=== PATIENT | female | born 1940 | race Caucasian/White ===

== ENCOUNTER 2016-05-18 09:28 | Inpatient (IN) | payer MEDICARE, OTHER ==
--- NOTE | 2016-05-10 20:33 | HP ---
HISTORY AND PHYSICAL: DATE OF SURGERY: 05/18/16 DATE OF VISIT: 05/07/16 SURGEON: Krys Santacruz MD PROCEDURE: Left total knee arthroplasty. CHIEF COMPLAINT: Left knee pain. HISTORY OF PRESENT ILLNESS: Ms. Greenberg is a 75-year-old female with complaints of left knee pain secondary to advanced osteoarthritis. She has failed conservative management and has elected to proceed with left total knee arthroplasty which is scheduled for 05/18/16. PAST MEDICAL HISTORY: Asthma, GERD, Graves' disease, overactive bladder, and hyperlipidemia. PAST SURGICAL HISTORY: Tubal ligation, carpal tunnel release, cataract removal , fine needle aspiration of her thyroid. CURRENT MEDICATIONS: 1. Spiriva inhaler. 2. Furosemide. 3. Symbicort. 4. Omeprazole. 5. Nabumetone. 6. Atorvastatin calcium. 7. Gabapentin. 8. ProAir. 9. Calcium. 10. Vitamin D. 11. Acidophilus. 12. Biotin. 13. Fish oil. ALLERGY: To SULFA, CODEINE, and DIFLUCAN. FAMILY HISTORY: Pancreatic cancer, hypertension, heart disease, and diabetes. SOCIAL HISTORY: She is a 75-year-old female. She lives with her . She does not smoke, use drugs, or alcohol. REVIEW OF SYSTEMS: A complete 14-point review of systems was reviewed, is positive for chronic lower extremity edema. PHYSICAL EXAMINATION GENERAL: Well-developed, well-nourished, in no acute distress. VITAL SIGNS: She stands 5 feet 2 inches tall, weighs 185 pounds. Blood pressure is 129/80, her heart rate is 83. HEENT: Normocephalic, atraumatic. NECK: Supple. No palpable lymph nodes. Trachea is midline. PULMONARY: The lungs are clear to auscultation bilaterally. No wheezes, rhonchi, or rales. CARDIO: Regular rate and rhythm. Strong S1, S2. No murmurs, gallops, or rubs. No peripheral edema. ABDOMEN: Soft, nontender, nondistended. MUSCULOSKELETAL: Left lower extremity, the skin is intact. She has a moderate joint effusion. Tenderness over the medial lateral joint line. She walks with an antalgic-type gait favoring her left leg. 2+ dorsalis pedis pulses. Her lower extremity muscle group strengths are intact at 5/5. NEUROLOGICAL: She is alert, oriented x3. Cranial nerves II through XII are intact. ASSESSMENT AND PLAN: Ms. Greenberg is a 75-year-old female with complaints of left knee pain secondary to advanced osteoarthritis. She has failed conservative management and has elected to proceed with left total knee arthroplasty, which is scheduled for 05/18/[address] Santacruz discussed the risks and the benefits of the surgery at today's visit and all of her questions were answered. Coumadin, Colace, and Percocet were sent to her pharmacy for post- operative pain control and DVT prophylaxis. She will see Dr. Santacruz back 10 to 14 days after the surgery. NED EASON [id number]/[facility] #: [id number] MTDD
[~2016-05-18 09:28] MED LIST: Buffered Lidocaine 1% SYRIN* 3 ML/SYR SYRINGE INTRADERM ONE; Dexamethasone IV* 4 MG/ML 1 ML (4 MG) IV SLOW PU ONE; Famotidine IV* 10 MG/ML 2 ML (20 mg) IV ONE
[2016-05-18] MEDS ORDERED: Famotidine IV* 10 MG/ML 2 ML (20 mg) ONE (09:44)
[2016-05-18] MEDS ORDERED: ceFAZolin 2 GM PREMIX(*) 2 GM/50 ML BAG IVPB ONE (09:44)
[2016-05-18] MEDS ORDERED: Dexamethasone IV* 4 MG/ML 1 ML (4 MG) ONE (09:44)
[2016-05-18] MEDS ORDERED: Bupivacaine 0.5% W/EPI SDV* 30 ML VIAL ONE (11:21)
[2016-05-18] MEDS ORDERED: Morphine PF AMP (0.5MG/ML)* 5 MG/10 ML AMP ONE (11:33)
[2016-05-18] MEDS ORDERED: fentaNYL* 50 MCG/ML 2 ML VIAL (100 MCG VIAL) ONE (11:33)
[2016-05-18] MEDS ORDERED: Bupivacaine 0.5% SDV PF* 30 ML VIAL ONE (11:33)
[2016-05-18] MEDS ORDERED: Midazolam* 1 MG/ML 5 ML VIAL (5 MG) ONE (11:33)
[2016-05-18] MEDS ORDERED: Scopolamine 1.5 mg* PATCH TRANSDERM PRN (11:35)
[2016-05-18] MEDS ORDERED: oxyCODONE TAB* 5 MG TAB PO PRN ×2 (11:35→11:36)
[2016-05-18] MEDS ORDERED: Acetaminophen IV 1GM/100ML * 100 ML IVPB ONE (11:35)
[2016-05-18] MEDS ORDERED: PROCHLORPERAZINE INJ 5 MG/ML 2 ML VIAL IV PRN ×2 (11:35→13:16)
[2016-05-18] MEDS ORDERED: fentaNYL* 50 MCG/ML 2 ML VIAL (100 MCG VIAL) IV PRN (11:35)
[2016-05-18] MEDS ORDERED: EPHEDrine (Pressors)* 50 MG/ML VIAL IV PUSH PRN (11:36)
[2016-05-18] MEDS ORDERED: Lactated Ringers 500 ml BAG* 500 ML IV PRN (11:36)
[2016-05-18] MEDS ORDERED: Propofol* 10 MG/ML 20 ML BTL IV PUSH ONE ×2 (11:45→13:32)
[2016-05-18] MEDS ORDERED: Lidocaine 2% PF* 5 ML VIAL ONE (11:45)
[2016-05-18] MEDS ORDERED: EPHEDrine (Pressors)* 50 MG/ML VIAL ONE (13:12)
[2016-05-18] MEDS ORDERED: Nalbuphine* 20 MG/ML 1 ML VIAL IV PRN (13:16)
[2016-05-18] MEDS ORDERED: Ondansetron INJ* 2 MG/ML VIAL IV PRN (13:16)
[2016-05-18] MEDS ORDERED: Naloxone* 0.4 MG/ML 1 ML VIAL IV PRN (13:16)
[2016-05-18] MEDS ORDERED: Midazolam* 1 MG/ML 2 ML VIAL (2 MG) ONE (13:34)
[2016-05-18] MEDS ORDERED: Ondansetron INJ* 2 MG/ML VIAL ONE (13:56)
[2016-05-18] MEDS ORDERED: Ropivacaine 0.2% EPIDURAL* 200 MG/100 ML BAG EPIDURAL ONE (14:22)
[2016-05-18] MEDS ORDERED: Acetaminophen IV 1GM/100ML * 100 ML ONE (14:35)
[2016-05-18] MEDS ORDERED: Ropivacaine 0.2% EPIDURAL* 200 MG/100 ML BAG EPIDURAL SCH (15:00)
[2016-05-18] MEDS ORDERED: Bisacodyl SUPP* 10 MG SUPP PR PRN (15:24)
[2016-05-18] MEDS ORDERED: Magnesium Hydroxide LIQ* 30 ML UDC PO PRN (15:24)
[2016-05-18] MEDS ORDERED: Polyethylene Glycol 3350* 17 GM PACKET PO PRN (15:24)
[2016-05-18] MEDS ORDERED: LACTULOSE* 30 ML UDC PO PRN (15:24)
--- NOTE | 2016-05-18 16:18 | RAD ---
Indication: Left total knee arthroplasty. 2 views of left knee demonstrates left knee replacement in satisfactory position. Drainage catheter is in place. IMPRESSION: LEFT KNEE REPLACEMENT IN SATISFACTORY POSITION.
[2016-05-18] MEDS ORDERED: Spiriva Inhaler DEVICE* 1 EACH DEVICE INH ONE (18:00)
[2016-05-18] MEDS: Warfarin TAB(*) 6 MG PO ONE (18:25)
[2016-05-18] MEDS: Atorvastatin* 10 MG TAB PO SCH (18:26)
[2016-05-18] MEDS ORDERED: Albuterol 2.5 MG/3 ML NEB.SOL* (0.083%) INH PRN (19:42)
[2016-05-18] MEDS: Docusate CAP* 100 MG PO SCH (20:50)
[2016-05-18] MEDS: Gabapentin CAP(*) 100 MG PO SCH (20:50)
[2016-05-18] MEDS: ceFAZolin 1 GM in Dextrose (*) 1 GM/50 ML BAG IVPB SCH (20:51)
[2016-05-18] MEDS: PTO: Budesonide/Formote 80/4.5(NF) MDI INH SCH (22:23)
[2016-05-18] MEDS ORDERED: Acetaminophen TAB* 325 MG PO SCH (23:30)
[2016-05-19] MEDS ORDERED: Lactated Ringers 500 ml BAG* 500 ML IV ONE (01:00)
[2016-05-19] MEDS ORDERED: Ondansetron INJ* 2 MG/ML VIAL IV PRN (04:30)
[2016-05-19] MEDS ORDERED: Ondansetron TAB* 4 MG PO PRN (04:30)
[2016-05-19] MEDS ORDERED: oxyCODONE TAB* 5 MG TAB PO PRN (04:30)
[2016-05-19] MEDS ORDERED: diPHENhydraMINE IV* 50 MG/ML 1 ml VIAL (BENADRYL) IV PRN (04:30)
[2016-05-19] MEDS: ceFAZolin 1 GM in Dextrose (*) 1 GM/50 ML BAG IVPB SCH ×2 (05:02→12:18)
[2016-05-19] MEDS ORDERED: Morphine INJ* 2 MG/ML 1 ML SYRINGE IV PRN (06:00)
[2016-05-19] MEDS ORDERED: NS 0.9% 500 ML BAG* 500 ML IV ONE ×2 (07:00→15:00)
[2016-05-19 07:27] LABS: Hematocrit 26 % (35-47); Hemoglobin 8.8 g/dl (12.0-16.0); Mean Corpuscular HGB Conc 34 g/dl (31-36); Mean Corpuscular Hemoglobin 29 pg (27-31); Mean Corpuscular Volume 85 fL (80-97); Mean Platelet Volume 9 um3 (7.4-10.4); Red Blood Count 3.06 10^6/ul (4.0-5.4); Red Cell Distribution Width 15 % (10.5-15)
[2016-05-19 07:36] LABS: Calcium 8.3 mg/dL (8.6-10.3); EGFR African American 136.5 (>60); EGFR Non-African American 106.1 (>60); Potassium 3.8 mmol/L (3.5-5.0)
[2016-05-19] MEDS: Omeprazole CAP* 20 MG PO SCH (07:56)
[2016-05-19] MEDS ORDERED: Furosemide TAB* 20 MG PO SCH (09:00)
[2016-05-19] MEDS ORDERED: Influenza VAC *QUAD* 2016-17* 0.5 ML SYRINGE IM ONE (09:00)
[2016-05-19] MEDS ORDERED: Pneumococcal Vac Polyvalent* 0.5 ML VIAL IM ONE (09:00)
[2016-05-19] MEDS: Tiotropium CAP.INH* CAP.INH/18 MCG INH SCH (09:04)
[2016-05-19] MEDS: PTO: Budesonide/Formote 80/4.5(NF) MDI INH SCH ×2 (09:47→20:43)
[2016-05-19] MEDS: Docusate CAP* 100 MG PO SCH ×2 (09:47→20:41)
--- NOTE | 2016-05-19 10:02 | PN ---
Progress Note - Progress Note SOAP: Subjective: []Patient seen OOB in chair, doing well overall. Pain well managed. Denies SOB , chest pain or dizziness. Objective: [] Vital Signs Temp 98.4 F 05/19/16 07:31 Pulse 58 05/19/16 07:31 Resp 18 05/19/16 08:00 BP 106/58 05/19/16 07:31 Pulse Ox 99 05/19/16 08:00 Intake & Output 05/18/16 05/19/16 05/19/16 18:59 06:59 18:59 Intake Total 3170 2500 Output Total 1150 650 Balance 2019 185 Weight 185 lb Intake: IV Fluids 3050 1650 LR 3000 1650 NS 50ML, Cefazolin 2G 50 IVPB 50 ABX - CEFAZOLIN 50 Oral 120 800 Output: Collazo 1150 650 Laboratory Results - last 24 hr 05/19/16 05/19/16 05/19/16 07:00 07:00 07:00 WBC 7.0 RBC 3.06 L Hgb 8.8 L Hct 26 L MCV 85 MCH 29 MCHC 34 RDW 15 Plt Count 137 L MPV 9 Neut % (Auto) 86.1 H Lymph % (Auto) 8.1 L [place] % (Auto) 5.6 Eos % (Auto) 0 Baso % (Auto) 0.2 Absolute Neuts (auto) 6.0 Absolute Lymphs (auto) 0.6 L Absolute Monos (auto) 0.4 Absolute Eos (auto) 0 Absolute Basos (auto) 0 Absolute Nucleated RBC 0 Nucleated RBC % 0.1 INR (Anticoag Therapy) 1.00 Sodium 131 L Potassium 3.8 Chloride 101 Carbon Dioxide 26 Anion Gap 4 BUN 14 Creatinine 0.56 Est GFR ( Amer) 136.5 Est GFR (Non-Af Amer) 106.1 BUN/Creatinine Ratio 25.0 H Glucose 114 H Calcium 8.3 L Left knee dressing is dry and intact Hemovac drain pulled, tip intact 375cc in canister calf non tender and soft +DF/PF left ankle neuro intact Assessment: []s/p Left total knee arthroplasty POD #1 Plan: []PT OT WBAT LLE Coumadin with Lovenox bridge -8mg today Monitor H+H Home tuesday
--- NOTE | 2016-05-19 11:30 | OP ---
OPERATIVE NOTE: DATE OF OPERATION: 05/18/16 DATE OF : 44 SURGEON: Krys Santacruz MD SAFETY SUPERVISOR: NED Sandoval ANESTHESIOLOGIST: Dr. Almonte. ANESTHESIA: Spinal with adductor nerve block. PRE-OP DIAGNOSIS: Left knee severe degenerative osteoarthritis. POST-OP DIAGNOSIS: Left knee severe degenerative osteoarthritis. OPERATIVE PROCEDURE: Left total knee arthroplasty. TOURNIQUET TIME: 58 minutes. COMPLICATIONS: None. SPECIMEN: Bone and cartilage from the left knee joint sent to pathology. ESTIMATED BLOOD LOSS: 300 cc. HARDWARE USED: This is cemented [employer] total knee hardware with two packages of Simplex b one cement. For the femur, a size 4 left narrow femoral component; for the tibia, a size 3 left tib ial base plate; for the insert, an 11- mm, size 3-4 posterior stabilized articular insert; and for t he patella, a 35-mm 3- peg all poly patella. BRIEF HISTORY/INDICATIONS: Ms. Greenberg is a 75-year-old female with years of increasingly severe bilat eral knee pain, left greater than right. Radiographs showed severe end-stage varus arthritis of the left knee with medial [id number] contact. The patient has failed conservative treatment with ant i-inflammatories, pain medication, intra-articular injections and physical therapy. She elected to have left total knee arthroplasty. Informed consent was obtained from the patient. She understood t he risks of surgery, included but were not limited to, bleeding, infection, damage to nearby structu res, continued pain, need for further surgery, intraoperative fracture, nerve palsy, hardware failur e or loosening, stroke, heart attack, blood clot, and . She wished to proceed. INTRAOPERATIVE FINDINGS: Intraoperatively, the patient was noted to have severe end-stage arthritis of the knee joint with extensive osteophyte formation. This was tricompartmental. Medial and shcroeder llofemoral compartments were most affected. DESCRIPTION OF PROCEDURE: Ms. Greenberg was identified in the pre-anesthesia unit. Her left lower extre mity was marked as the correct operative side. Informed consent was signed and placed in the chart. The patient was taken to the operating room and placed under spinal anesthesia with an adductor ne rve block. Collazo catheter was placed. The tourniquet was placed on the left thigh. Left lower ext remity was prepped and draped in the usual sterile fashion. Preop time-out was made to correctly id entify the patient's side and site. Appropriate perioperative antibiotics were given within 1 hour of incision. Tourniquet was inflated until tourniquet time for this procedure was 58 minutes. A 12-cm midline in cision was made with a 10 blade. This was carried down to the extensor mechanism. A new 10 blade w as used to make a standard medial parapatellar arthrotomy and the patella was subluxed laterally. E lectrocautery was used to subperiosteally elevate soft tissue off the superomedial tibia to the mid sagittal plane. The knee was flexed up. ACL and anterior horn of the lateral meniscus was sharply released. A drill was used to enter the distal femur. Intramedullary distal femoral cutting guide was pinned into position on the distal femur. Oscillating saw was used to make the appropriate dista l femoral cut. External rotation guide was pinned on the distal femur and the distal femur was sized to a size 4. A size 4 multi-cutting jig was pinned on the distal femur. Oscillating saw was used to make the appr opriate 4 chamfer cuts. Bony fragments were carefully removed. PCL was completely released and the tibia was subluxed anteriorly. Extramedullary tibial cutting guide was pinned on the proximal tibia. Oscillating saw was used to m hui the appropriate proximal tibial cut. Tibial bone was carefully removed. The knee was brought out into full extension. The spacer block had good fit. There was good medial and lateral ligamentous balancing. Flexion and extension gaps were well balanced. The knee was flexed up. Lamina electronic heat seal operator was placed both medially and laterally. Remaining meniscus was carefully removed using electrocautery. Posterior condyles were checked for any remaining osteo phytes. Curved osteotome was used to remove any remaining osteophytes. Tibial tray and drop macario we re placed to once again confirmed satisfactory proximal tibial cut. This was confirmed. A size 4 narrow left femoral trial was chosen and impacted on to the distal femur. This had good fit . The box for the posterior stabilized implant was prepared using a reamer and box cut osteotome. A size 3 tibial tray with a 9 mm insert trial was placed. The knee was taken through range of motio n and noted to have full extension to 130 degrees of flexion. Good patellofemoral tracking. The patella was everted. 9 mm of patellar bone and cartilage were carefully removed. The patella w as sized to a size 35. Three peg holes were drilled through the size 35 guide. Trial 35 patella wa s placed and the knee was taken through a range of motion. There was satisfactory patellofemoral tr acking. All trials were carefully removed. The tibia was subluxed anteriorly and sized to a size 3. Proxim al tibia was prepared using a size 3 keel punch. All bony cut surfaces were copiously irrigated wit h sterile saline and dried. The final implants were cemented into place using Simplex bone cement. First the tibia, followed by the femur, and last the patella were cemented into place. An 11-mm in sert trial was placed while the knee was brought out into full extension. Tourniquet was turned down at 58 minutes. Once the cement was fully cured, the insert trial was removed. Capsule was checked for any bleeding and any excess cement was carefully removed. Final insert chosen was an 11-mm pos terior stabilized articular insert size 3-4. This was locked into position on the tibial tray. Sta bility of the insert was checked and rechecked, and noted to be stable. Final range of motion was full extension to 130 degrees of flexion with good patellofemoral tracking . The knee was copiously irrigated with sterile saline. The extensor mechanism was reapproximated u sing interrupted #1 Vicryls over a medium Hemovac drain. The rest of the incision was closed in a l ayered fashion using 0 and 2-0 Vicryls. Skin was closed using running 3-0 nylon suture. Sterile Xe roform, 4 x 4's, and Webril were used to cover the incision. Ned wrap and cold pack were placed ove r this. The patient's anesthesia was reversed without difficulty. She was taken to the PACU in stab le condition. Intended weightbearing will be weightbearing as tolerated. Intended DVT prophylaxis will be Coumadin with a Lovenox bridge. [id number]/[facility] #: [id number]
--- NOTE | 2016-05-19 12:12 | CONS ---
CONSULTATION REPORT: DATE OF CONSULT: 05/18/16 PRIMARY CARE PROVIDER: Dr. Perez. REQUESTING PHYSICIAN FOR CONSULTATION: Dr. Krys Santacruz. ATTENDING PHYSICIAN: Dr. Carranza (reported being dictated by Gabriel Peralta NP). REASON FOR MEDICAL EVALUATION: Medical management of comorbid medical problems. HISTORY OF PRESENT ILLNESS: I refer you to Dr. Santacruz's H and P for further details. In short, Ms. Greenberg is a 75-year-old female patient that came into the hospital today for an elective total knee replacement. She has been seeing Dr. Santacruz in the outpatient setting for this and has been failing conservative therapy and it was felt that a total knee would be needed. She was evaluated in the postoperative setting. She said she is feeling well. She denies any chest pain. Denies any shortness of breath. She denies having any nausea or vomiting. She states that she is not having any chest pain or shortness of breath. She has no pain in her knee. She states she has no numbness or tingling to her lower extremities and says that she is feeling well. She carries a history of asthma along with edema, hyperlipidemia, Graves' disease and GERD and arthritis, and because of this, the hospitalist service was asked to evaluate in consult. PAST MEDICAL HISTORY: Significant for: 1. Asthma. 2. GERD. 3. Graves. 4. Osteoarthritis. 5. Hyperlipidemia. 6. Edema. SURGICAL HISTORY: 1. She has had a tubal ligation. 2. Carpal tunnel. 3. Cataracts. 4. Left total knee arthroplasty. HOME MEDICATIONS: Include: 1. Spiriva 2 puffs inhale daily. 2. Symbicort 2 puffs inhale b.i.d. 3. Probiotic one capsule p.o. daily. 4. Prilosec 40 mg daily. 5. [place]-3 fatty acids 1400 mg p.o. daily. 6. Relafen 500 mg p.o. b.i.d. 7. Gabapentin 200 mg at bedtime. 8. Lasix 40 mg a day. 9. D3 5000 units daily. 10. Calcium 2 tablets p.o. daily. 11. Biotin 10,000 mcg p.o. daily. 12. Lipitor 5 mg daily. 13. Albuterol 2 puffs inhale every 4 hours as needed. 14. Fish oil. ALLERGIES TO MEDICATIONS: Include SULFA, CODEINE, and DIFLUCAN. FAMILY HISTORY: Father had a history of pancreatic cancer. Mother's history was reviewed and noncontributory. SOCIAL HISTORY: The patient does not smoke. She does not drink alcohol. Surrogate decision maker is her . REVIEW OF SYSTEMS: There is no documented fever. She denied having any significant weight change. There is no double vision. There is no ear discharge. Denies having any rhinorrhea. There is no sore throat. No thyroid enlargement. She denied having any chest pain. There is no orthopnea. There is no nocturnal dyspnea. There is no abdominal pain. There is no nausea, no vomiting, no dysuria, no frequency. No seizure. No loss of consciousness. No pruritus. No skin ulcerations. Review of 14 systems completed, all others negative. PHYSICAL EXAMINATION: Vital Signs: Blood pressure 101/60, pulse 59, respirations 18, O2 sat 93%, temperature 96.5. General: At this time, Ms. Greenberg is a 75-year- old female patient. She is sitting in the postoperative bed. She does not appear to be in any acute distress. HEENT: Head is atraumatic and normocephalic. Eyes: EOMs are intact. Sclerae anicteric and not pale. Neck: Supple. Throat: Oral mucosa appears to be moist. No oropharyngeal erythema. Heart: Heart sounds S1, S2. Regular rate and rhythm. No murmurs, rubs or gallops. Lungs: Clear to auscultation bilaterally. No wheezes, rales, or rhonchi. Abdomen: Soft, flat, nontender. Bowel sounds present. Extremities: Pulses are 2+ throughout. Distal CSM checks are intact. She is moving the upper extremities with 5/5 strength. Neurologically, she is awake, alert, and oriented x3. No gross focal deficits. Skin is intact. She has an incision to the left knee, which is covered with an Ned dressing, clean, dry, and intact. DIAGNOSTIC STUDIES/LAB DATA: The labs preoperatively reveal a WBC of 6.5, RBC of 4.51, hemoglobin 13.0, hematocrit 38, platelet count of 196. INR was 0.88. PTT of 31.6. The sodium was 135, potassium 3.7, chloride 100, bicarb 29, BUN 23 , creatinine 0.81, glucose 92. The urine was obtained, it was negative. She had a preoperative EKG which revealed a normal sinus rhythm at a rate of 60. No ST elevation or T-wave inversions were noted. Old medical records were reviewed. PLAN: Ms. Greenberg is a 75-year-old female patient coming into the orthopedic service today for an elective total knee replacement. We were asked to evaluate in consult. Recommendations at this point are: 1. Status post left total knee replacement. We will defer the management to Dr. Santacruz and her team. 2. Asthma. Continue breathing treatments as prescribed. I did order some p.r.n. albuterol for the patient should she need it. 3. Graves' disorder. Continue current medical regimen. Follow up with her primary. 4. Osteoarthritis. She can follow up with her primary. I would recommend, while she is on Coumadin, not continuing the Relafen. 5. Hyperlipidemia. Continue the statin therapy. 6. GERD. Continue PPI therapy. 7. Edema. She is on Lasix daily for this. At this point, I would hold this and will diurese her as needed. 8. DVT prophylaxis. I will defer to the primary team. 9. Fluid, electrolytes and nutrition. She can have a regular diet. 10. Code status is full code. TIME SPENT: On the consult was 60 minutes, greater than half the time was spent [id number] with the patient obtaining my history and physical, other half the time spent going over the plan of care with the patient and implementing the plan of care. I did discuss the plan of care with my attending, Dr. Carranza; he is in agreement. GABRIEL PERALTA NP CC: Dr. Perez; Dr. Santacruz* [id number]/[facility] #: [id number] TOBIAS
[2016-05-19] MEDS: Enoxaparin(*) 30 MG/0.3 ML SYR SUBCUT SCH (12:16)
[2016-05-19] MEDS: oxyCODONE/Acetamin 5/325 MG* TAB PO PRN ×3 (12:19→20:42)
[2016-05-19] MEDS ORDERED: Warfarin TAB(*) 4 MG PO ONE (17:00)
[2016-05-19] MEDS: Atorvastatin* 10 MG TAB PO SCH (17:16)
--- NOTE | 2016-05-19 18:07 | PN ---
Subjective Date of Service: 05/19/16 Interval History: Patient seen and examined at bedside. She denies fever/chills, CP, SOB, abd pain , n/v. She reports worse pain in her knee today but reports relief with pain medication. Denies fever/chills, CP, SOB, abd pain, n/v. No dysuria. Family History: Unchanged from Admission Social History: Unchanged from Admission Past Medical History: Unchanged from Admission Objective Active Medications: Acetaminophen (Tylenol Tab*) 650 mg PO Q4H PRN PRN Reason: PAIN OR TEMPERATURE Albuterol (Ventolin 2.5 Mg/3 Ml Neb.Julia*) 2.5 mg INH Q2H PRN PRN Reason: SOB/WHEEZING Atorvastatin Calcium (Lipitor*) 5 mg PO QPM [facility] Last Admin: 05/19/16 17:16 Dose: 5 mg Bisacodyl (Dulcolax Supp*) 10 mg MA DAILY PRN PRN Reason: constipation Budesonide/Formoterol Fumarate (Symbicort 80/4.5 (Nf)) 2 aer INH BID [facility] Last Admin: 05/19/16 09:47 Dose: 2 inhaler Diphenhydramine HCl (Benadryl Iv*) 12.5 mg IV Q6H PRN PRN Reason: PRURITIS Docusate Sodium (Colace Cap*) 100 mg PO BID [facility] Last Admin: 05/19/16 09:47 Dose: 100 mg Enoxaparin Sodium (Lovenox(*)) 30 mg SUBCUT Q24H [facility] Last Admin: 05/19/16 12:16 Dose: 30 mg Gabapentin (Neurontin Cap(*)) 200 mg PO BEDTIME [facility] Last Admin: 05/18/16 20:50 Dose: 200 mg Lactated Ringer's (Lactated Ringers 1000 Ml Bag*) 1,000 mls @ 100 mls/hr IV PER RATE [facility] Last Admin: 05/19/16 07:37 Dose: 100 mls/hr Lactulose (Lactulose*) 30 ml PO Q6H PRN PRN Reason: constipation Magnesium Hydroxide (Milk Of Magnesia Liq*) 30 ml PO Q6H PRN PRN Reason: constipation Morphine Sulfate (Morphine Inj (Syringe)*) 2 mg IV Q2H PRN PRN Reason: PAIN Omeprazole (Prilosec Cap*) 40 mg PO 0730 [facility] Last Admin: 05/19/16 07:56 Dose: 40 mg Ondansetron HCl (Zofran Inj*) 4 mg IV Q6H PRN PRN Reason: nausea Ondansetron HCl (Zofran Tab*) 4 mg PO Q6H PRN PRN Reason: NAUSEA Oxycodone HCl (Roxycodone Tab*) 10 mg PO Q4H PRN PRN Reason: SEVERE PAIN Last Admin: 05/19/16 05:35 Dose: 10 mg Oxycodone/Acetaminophen (Percocet 5/325 Tab*) 1 tab PO Q3H PRN PRN Reason: PAIN - MODERATE Oxycodone/Acetaminophen (Percocet 5/325 Tab*) 2 tab PO Q3H PRN PRN Reason: PAIN - MODERATE Last Admin: 05/19/16 17:17 Dose: 2 tab Pharmacy Profile Note (Scopolomine Patch Remove*) 1 note PATCH OFF Q72H ONE Stop: 05/21/16 11:37 Pharmacy Profile Note (Coumadin Daily Reminder*) 1 note FOLLOW UP 1700 [facility] Last Admin: 05/19/16 17:18 Dose: 1 note Polyethylene Glycol/Electrolytes (Miralax*) 17 gm PO DAILY PRN PRN Reason: Constipation Tiotropium [place] (Spiriva Cap.Inh*) 1 cap INH QAM [facility] Last Admin: 05/19/16 09:04 Dose: 1 cap Vital Signs 05/18/16 05/18/16 05/18/16 18:24 18:25 19:23 Temperature 96.6 F 96.6 F 96.5 F Pulse Rate 65 65 59 Respiratory 17 17 16 Rate Blood Pressure 109/66 109/66 101/60 (mmHg) O2 Sat by Pulse 94 94 93 Oximetry 05/18/16 05/18/16 05/18/16 20:00 20:50 21:18 Temperature Pulse Rate Respiratory 17 17 17 Rate Blood Pressure (mmHg) O2 Sat by Pulse Oximetry 05/18/16 05/18/16 05/18/16 21:23 21:40 22:50 Temperature 96.7 F Pulse Rate 63 Respiratory 17 16 16 Rate Blood Pressure 102/62 (mmHg) O2 Sat by Pulse 96 Oximetry 05/18/16 05/18/16 05/18/16 23:37 23:38 23:49 Temperature 97.0 F Pulse Rate 63 67 Respiratory 16 16 Rate Blood Pressure 94/46 (mmHg) O2 Sat by Pulse 96 96 96 Oximetry 05/19/16 05/19/16 05/19/16 01:05 02:06 03:29 Temperature Pulse Rate 58 63 62 Respiratory 16 16 16 Rate Blood Pressure 98/58 92/53 97/57 (mmHg) O2 Sat by Pulse 99 98 98 Oximetry 05/19/16 05/19/16 05/19/16 03:34 05:35 07:31 Temperature 97.2 F 98.4 F Pulse Rate 58 Respiratory 16 16 Rate Blood Pressure 106/58 (mmHg) O2 Sat by Pulse 99 Oximetry 05/19/16 05/19/16 05/19/16 07:35 08:00 11:29 Temperature 97.9 F Pulse Rate 71 Respiratory 18 18 16 Rate Blood Pressure 109/33 (mmHg) O2 Sat by Pulse 99 100 Oximetry 05/19/16 05/19/16 05/19/16 12:19 14:19 15:50 Temperature 98.0 F Pulse Rate 78 Respiratory 18 18 16 Rate Blood Pressure 113/52 (mmHg) O2 Sat by Pulse 98 Oximetry 05/19/16 05/19/16 16:00 17:17 Temperature Pulse Rate Respiratory 18 Rate Blood Pressure (mmHg) O2 Sat by Pulse 98 Oximetry Oxygen Devices in Use Now: None Appearance: Female patient, OOB to chair, in NAD Eyes: PERRLA Ears/Nose/Mouth/Throat: Clear Oropharnyx, Mucous Membranes Moist Neck: NL Appearance and Movements; NL JVP Respiratory: Symmetrical Chest Expansion and Respiratory Effort, Clear to Auscultation Cardiovascular: NL Sounds; No Murmurs; No JVD, RRR Abdominal: NL Sounds; No Tenderness; No Distention Extremities: - - trace LE edema, left knee dressing c/d/i, distal pulses 2+ Skin: No Rash or Ulcers Neurological: Alert and Oriented x 3 Lines/Tubes/Other Access: Clean, Dry and Intact Peripheral IV Nutrition: Taking PO's Result Diagrams: 05/19/16 07:00 05/19/16 07:00 Assess/Plan/Problems-Billing Assessment: Ms. Greenberg is a 75 yo female with a PMH of asthma, GERD, OA, HLD, Grave's disease , and overactive bladder who was admitted 05/18/16 for an elective left total knee replacement. - Patient Problems (1) Status post total left knee replacement Code(s): Z96.652 - PRESENCE OF LEFT ARTIFICIAL KNEE JOINT Comment: POD #1, management per ortho. HH stable, VSS. PT/OT Continue pain management. (2) Bilateral lower extremity edema Code(s): R60.0 - LOCALIZED EDEMA Comment: Chronic. Hold furosemide post-operatively, as BP is soft. (3) GERD (gastroesophageal reflux disease) Code(s): K21.9 - GASTRO-ESOPHAGEAL REFLUX DISEASE WITHOUT ESOPHAGITIS Comment : Continue omeprazole. (4) Asthma Code(s): J45.909 - UNSPECIFIED ASTHMA, UNCOMPLICATED Comment: Stable. Continue Symbicort. (5) Osteoarthritis Code(s): M19.90 - UNSPECIFIED OSTEOARTHRITIS, UNSPECIFIED SITE Comment: Continue pain managment. Relafen on hold in post-operative period while on warfarin. (6) HLD (hyperlipidemia) Code(s): E78.5 - HYPERLIPIDEMIA, UNSPECIFIED Comment: Continue atorvastatin. (7) Graves disease Code(s): E05.00 - THYROTOXICOSIS W DIFFUSE GOITER W/O THYROTOXIC CRISIS Comment: Not on PTU or methimiazole. Continue outpatient f/u with PCP. (8) DVT prophylaxis Code(s): MZW6212 - Comment: Per ortho - warfarin and enoxaparin Status and Disposition: Inpatient admission. Disposition per orthopedics.
[2016-05-19] MEDS: Acetaminophen TAB* 325 MG PO PRN (20:41)
[2016-05-19] MEDS: Gabapentin CAP(*) 100 MG PO SCH (20:42)
[2016-05-20] MEDS: Omeprazole CAP* 20 MG PO SCH (06:57)
[2016-05-20 07:26] LABS: Hematocrit 27 % (35-47); Hemoglobin 9.1 g/dl (12.0-16.0)
--- NOTE | 2016-05-20 07:46 | PN ---
Progress Note - Progress Note SOAP: Subjective: Pt. is doing well, pain controlled, urinated this AM. No BM or flatulence. Objective: LLE - dressing changed, inc c/d/i. distally no edema and nvi. Vital Signs: Temp Pulse Resp BP Pulse Ox 98.0 F 91 16 143/78 97 05/20/16 07:09 05/20/16 07:09 05/20/16 07:09 05/20/16 07:09 05/20/16 07:09 Laboratory Results - last 24 hr 05/20/16 05/20/16 07:18 07:18 Hgb 9.1 L Hct 27 L INR (Anticoag Therapy) 1.24 H Assessment: 75 yo F pod 2 s/p LTKA Plan: wbat lle pt/ot 6 mg coumadin tonight cont lovenox d/c to home with vns tomorrow am
[2016-05-20] MEDS: Tiotropium CAP.INH* CAP.INH/18 MCG INH SCH (08:41)
[2016-05-20] MEDS: PTO: Budesonide/Formote 80/4.5(NF) MDI INH SCH ×2 (08:41→20:58)
[2016-05-20] MEDS: oxyCODONE/Acetamin 5/325 MG* TAB PO PRN ×2 (08:42→12:31)
[2016-05-20] MEDS: Docusate CAP* 100 MG PO SCH ×2 (08:42→20:59)
[2016-05-20] MEDS: Enoxaparin(*) 30 MG/0.3 ML SYR SUBCUT SCH (12:01)
[2016-05-20] MEDS ORDERED: Warfarin TAB(*) 6 MG PO SCH (17:00)
[2016-05-20] MEDS: Atorvastatin* 10 MG TAB PO SCH (17:27)
--- NOTE | 2016-05-20 18:04 | PN ---
Subjective Date of Service: 05/20/16 Interval History: Patient seen and examined at bedside. Pt denies fever, chills, shortness of breath, chest discomfort, N/V/D. Reports pain is tolerable with pain medication. Family History: Unchanged from Admission Social History: Unchanged from Admission Past Medical History: Unchanged from Admission Objective Active Medications: Acetaminophen (Tylenol Tab*) 650 mg PO Q4H PRN Reason: PAIN OR TEMPERATURE Albuterol (Ventolin 2.5 Mg/3 Ml Neb.Julia*) 2.5 mg INH Q2H PRN Reason: SOB/ WHEEZING Atorvastatin Calcium (Lipitor*) 5 mg PO QPM VASU Bisacodyl (Dulcolax Supp*) 10 mg [place] DAILY PRN Reason: constipation Budesonide/Formoterol Fumarate (Symbicort 80/4.5 (Nf)) 2 aer INH BID VASU Diphenhydramine HCl (Benadryl Iv*) 12.5 mg IV Q6H PRN Reason: PRURITIS Docusate Sodium (Colace Cap*) 100 mg PO BID VASU Enoxaparin Sodium (Lovenox(*)) 30 mg SUBCUT Q24H VASU Gabapentin (Neurontin Cap(*)) 200 mg PO BEDTIME VASU Lactated Ringer's (Lactated Ringers 1000 Ml Bag*) 1,000 mls @ 100 mls/hr IV PER RATE VASU Lactulose (Lactulose*) 30 ml PO Q6H PRN Reason: constipation Magnesium Hydroxide (Milk Of Magnesia Liq*) 30 ml PO Q6H PRN Reason: constipation Morphine Sulfate (Morphine Inj (Syringe)*) 2 mg IV Q2H PRN Reason: PAIN Omeprazole (Prilosec Cap*) 40 mg PO 0730 VASU Ondansetron HCl (Zofran Inj*) 4 mg IV Q6H PRN Reason: nausea Ondansetron HCl (Zofran Tab*) 4 mg PO Q6H PRN Reason: NAUSEA Oxycodone HCl (Roxycodone Tab*) 10 mg PO Q4H PRN Reason: SEVERE PAIN Oxycodone/Acetaminophen (Percocet 5/325 Tab*) 1 tab PO Q3H PRN Reason: PAIN - MODERATE Oxycodone/Acetaminophen (Percocet 5/325 Tab*) 2 tab PO Q3H PRN Reason: PAIN - MODERATE Pharmacy Profile Note (Scopolomine Patch Remove*) 1 note PATCH OFF Q72H ONE Stop: 05/21/16 11:37 Pharmacy Profile Note (Coumadin Daily Reminder*) 1 note FOLLOW UP 1700 VASU Polyethylene Glycol/Electrolytes (Miralax*) 17 gm PO DAILY PRN Reason: Constipation Tiotropium [place] (Spiriva Cap.Inh*) 1 cap INH QAM COUNTS INCLUDE 234 BEDS AT THE [facility] Vital Signs 05/19/16 05/19/16 05/19/16 19:13 19:17 20:00 Temperature 98.5 F Pulse Rate 78 Respiratory 13 16 13 Rate Blood Pressure 132/60 (mmHg) O2 Sat by Pulse 96 Oximetry 05/19/16 05/19/16 05/19/16 20:42 22:42 23:38 Temperature 98.1 F Pulse Rate 76 Respiratory 16 18 16 Rate Blood Pressure 124/81 (mmHg) O2 Sat by Pulse 94 Oximetry 05/20/16 05/20/16 05/20/16 01:36 03:25 07:09 Temperature 98.0 F 98.2 F 98.0 F Pulse Rate 73 75 91 Respiratory 17 15 16 Rate Blood Pressure 130/67 123/58 143/78 (mmHg) O2 Sat by Pulse 94 94 97 Oximetry 05/20/16 05/20/16 05/20/16 08:00 08:42 10:42 Temperature Pulse Rate Respiratory 18 16 16 Rate Blood Pressure (mmHg) O2 Sat by Pulse 97 Oximetry 05/20/16 05/20/16 05/20/16 11:50 12:31 14:31 Temperature 97.9 F Pulse Rate 87 Respiratory 16 20 16 Rate Blood Pressure 140/70 (mmHg) O2 Sat by Pulse 93 Oximetry 05/20/16 05/20/16 15:55 16:00 Temperature 98.2 F Pulse Rate 89 Respiratory 16 Rate Blood Pressure 150/77 (mmHg) O2 Sat by Pulse 96 96 Oximetry Oxygen Devices in Use Now: None Appearance: NAD, laying in bed Eyes: No Scleral Icterus, PERRLA Ears/Nose/Mouth/Throat: NL Teeth, Lips, Gums, Mucous Membranes Moist Neck: NL Appearance and Movements; NL JVP, Trachea Midline Respiratory: Symmetrical Chest Expansion and Respiratory Effort, Clear to Auscultation Cardiovascular: NL Sounds; No Murmurs; No JVD, RRR Abdominal: NL Sounds; No Tenderness; No Distention Extremities: - - Trace to mild left LE edema Skin: - - Dressing to left knee clean, dry and intact Neurological: Alert and Oriented x 3, NL Muscle Strength and Tone Lines/Tubes/Other Access: Clean, Dry and Intact Peripheral IV - site benign Nutrition: Taking PO's Result Diagrams: 05/20/16 07:18 05/19/16 07:00 Assess/Plan/Problems-Billing Assessment: Ms. Greenberg is a 75 yo female with a PMH of asthma, GERD, OA, HLD, Grave's disease , and overactive bladder who was admitted 05/18/16 for an elective left total knee replacement. - Patient Problems (1) Status post total left knee replacement Code(s): Z96.652 - PRESENCE OF LEFT ARTIFICIAL KNEE JOINT SNOMED Code(s): 6555968959408 Comment: - POD #2, management per ortho - HH stable, VSS - PT/OT - Continue pain management (2) Bilateral lower extremity edema Code(s): R60.0 - LOCALIZED EDEMA SNOMED Code(s): 751880052 Comment: - Chronic. Hold furosemide post-operatively (3) GERD (gastroesophageal reflux disease) Code(s): K21.9 - GASTRO-ESOPHAGEAL REFLUX DISEASE WITHOUT ESOPHAGITIS SNOMED Code(s): 279367332 Comment: - Continue omeprazole. (4) Asthma Code(s): J45.909 - UNSPECIFIED ASTHMA, UNCOMPLICATED SNOMED Code(s): 760541691 Comment: - Stable. Continue Symbicort. (5) Graves disease Code(s): E05.00 - THYROTOXICOSIS W DIFFUSE GOITER W/O THYROTOXIC CRISIS SNOMED Code(s): 758407534 Comment: - Not on PTU or methimiazole. - Continue outpatient f/u with PCP. (6) HLD (hyperlipidemia) Code(s): E78.5 - HYPERLIPIDEMIA, UNSPECIFIED SNOMED Code(s): 26648428 Comment: - Continue atorvastatin. (7) Osteoarthritis SNOMED Code(s): 627868297 Comment: - Continue pain managment. - Relafen on hold in post-operative period while on warfarin. (8) DVT prophylaxis Code(s): VEY3601 - SNOMED Code(s): 412844122 Comment: - Per ortho - warfarin and enoxaparin (9) Full code status Code(s): Z78.9 - OTHER SPECIFIED HEALTH STATUS SNOMED Code(s): 253280475 Status and Disposition: Inpatient admission. Disposition per orthopedics.
[2016-05-20] MEDS: Gabapentin CAP(*) 100 MG PO SCH (20:58)
[2016-05-20] MEDS: Acetaminophen TAB* 325 MG PO PRN (20:59)
[2016-05-21 06:38] LABS: Hematocrit 27 % (35-47); Hemoglobin 9.5 g/dl (12.0-16.0)
[2016-05-21] MEDS: Omeprazole CAP* 20 MG PO SCH (07:47)
--- NOTE | 2016-05-21 08:23 | PN ---
Progress Note - Progress Note SOAP: Subjective: [75 y/o F s/p L TKA 05/18. Patient resting comfortably in chair, NAD, no complaints, concerns. Pain medication working well, working with PT, eager for D/C. VSS overnight, + BM ] Objective: [GEneral- Well appearing, NAD AO MSK- NVI to light touch b/l LEs, PT pulses 2+ b/l, minimal edema L LE, neg homans b/l, incision c/d/i, dressing replaced, no erythema noted. ] Vital Signs Temp 98.5 F 05/21/16 08:00 Pulse 90 05/21/16 08:00 Resp 16 05/21/16 08:00 BP 150/51 05/21/16 08:00 Pulse Ox 96 05/21/16 08:00 Intake & Output 05/20/16 05/21/16 05/21/16 18:59 06:59 18:59 Intake Total 640 1979 Output Total 1000 3600 800 Balance -360 -1620 -800 Intake: Oral 640 1979 Output: Urine 900 3600 800 Emesis 100 Other: Estimated Void Large # Bowel Movements 2 0 Estimated Stool Amount Medium Large # Voids 1 Laboratory Results - last 24 hr 05/21/16 05/21/16 06:13 06:13 Hgb 9.5 L Hct 27 L INR (Anticoag Therapy) 2.04 H Assessment: [[75 y/o F s/p L TKA 05/18.] Plan: [- DVT prophylaxis- INR theraputic, D/C lovenox. - D/C today - FOllow up with DR. Santacruz within 10-14 days - continue PT/ OT - continue home meds ] Active Medications Generic Name Dose Route Start Last Admin Trade Name Freq PRN Reason Stop Dose Admin Acetaminophen 650 mg 05/19/16 04:30 05/20/16 20:59 Tylenol Tab* PO 650 mg Q4H PRN Administration PAIN OR TEMPERATURE Albuterol 2.5 mg 05/18/16 19:42 Ventolin 2.5 Mg/3 Ml Neb.Julia* INH Q2H PRN SOB/WHEEZING Atorvastatin Calcium 5 mg 05/18/16 18:00 05/20/16 17:27 Lipitor* PO 5 mg QPM VASU Administration Bisacodyl 10 mg 05/18/16 15:24 Dulcolax Supp* [place] DAILY PRN constipation Budesonide/Formoterol Fumarate 2 aer 05/18/16 21:30 05/20/16 20:58 Symbicort 80/4.5 (Nf) INH 2 inhaler BID VASU Administration Diphenhydramine HCl 12.5 mg 05/19/16 04:30 Benadryl Iv* IV Q6H PRN PRURITIS Docusate Sodium 100 mg 05/18/16 21:00 05/20/16 20:59 Colace Cap* PO 100 mg BID VASU Administration Enoxaparin Sodium 30 mg 05/19/16 12:00 05/20/16 12:01 Lovenox(*) SUBCUT 30 mg Q24H VASU Administration Gabapentin 200 mg 05/18/16 21:00 05/20/16 20:58 Neurontin Cap(*) PO 200 mg BEDTIME VASU Administration Lactated Ringer's 1,000 mls @ 100 mls/hr 05/18/16 16:00 05/20/16 02:20 Lactated Ringers 1000 Ml Bag* IV 100 mls/hr PER RATE VASU Administration Lactulose 30 ml 05/18/16 15:24 05/20/16 14:58 Lactulose* PO 30 ml Q6H PRN Administration constipation Magnesium Hydroxide 30 ml 05/18/16 15:24 05/20/16 08:42 Milk Of Magnesia Liq* PO 30 ml Q6H PRN Administration constipation Morphine Sulfate 2 mg 05/19/16 06:00 Morphine Inj (Syringe)* IV Q2H PRN PAIN Omeprazole 40 mg 05/19/16 07:30 05/21/16 07:47 Prilosec Cap* PO 40 mg 0730 VASU Administration Ondansetron HCl 4 mg 05/19/16 04:30 Zofran Inj* IV Q6H PRN nausea Ondansetron HCl 4 mg 05/19/16 04:30 Zofran Tab* PO Q6H PRN NAUSEA Oxycodone HCl 10 mg 05/19/16 04:30 05/19/16 05:35 Roxycodone Tab* PO 10 mg Q4H PRN Administration SEVERE PAIN Oxycodone/Acetaminophen 1 tab 05/19/16 04:30 05/20/16 12:31 Percocet 5/325 Tab* PO 1 tab Q3H PRN Administration PAIN - MODERATE Oxycodone/Acetaminophen 2 tab 05/19/16 04:30 05/19/16 17:17 Percocet 5/325 Tab* PO 2 tab Q3H PRN Administration PAIN - MODERATE Pharmacy Profile Note 1 note 05/21/16 11:36 Scopolomine Patch Remove* PATCH OFF 05/21/16 11:37 Q72H ONE Pharmacy Profile Note 1 note 05/19/16 17:00 05/20/16 17:27 Coumadin Daily Reminder* FOLLOW UP 1 note 1700 VASU Administration Polyethylene Glycol/Electrolytes 17 gm 05/18/16 15:24 Miralax* PO DAILY PRN Constipation Tiotropium [place] 1 cap 05/19/16 09:00 05/20/16 08:41 Spiriva Cap.Inh* INH 1 cap QAM VASU Administration
[2016-05-21] MEDS: Tiotropium CAP.INH* CAP.INH/18 MCG INH SCH (09:49)
[2016-05-21] MEDS: Docusate CAP* 100 MG PO SCH (09:58)
[2016-05-21] MEDS: Acetaminophen TAB* 325 MG PO PRN (09:59)
[2016-05-21] MEDS: PTO: Budesonide/Formote 80/4.5(NF) MDI INH SCH (10:00)
[2016-05-21] MEDS ORDERED: Scopolomine PATCH Remove* 1 NOTE MISC PATCH OFF ONE (11:36)
--- NOTE | 2016-05-21 12:23 | PN ---
Subjective Date of Service: 05/21/16 Interval History: Patient seen and examined at bedside. Denies fever, chills, shortness of breath , chest discomfort, N/V/D. Pt reports that pain is controlled. Family History: Unchanged from Admission Social History: Unchanged from Admission Past Medical History: Unchanged from Admission Objective Active Medications: Acetaminophen (Tylenol Tab*) 650 mg PO Q4H PRN Reason: PAIN OR TEMPERATURE Albuterol (Ventolin 2.5 Mg/3 Ml Neb.Julia*) 2.5 mg INH Q2H PRN Reason: SOB/ WHEEZING Atorvastatin Calcium (Lipitor*) 5 mg PO QPM VASU Bisacodyl (Dulcolax Supp*) 10 mg [place] DAILY PRN Reason: constipation Budesonide/Formoterol Fumarate (Symbicort 80/4.5 (Nf)) 2 aer INH BID VASU Diphenhydramine HCl (Benadryl Iv*) 12.5 mg IV Q6H PRN Reason: PRURITIS Docusate Sodium (Colace Cap*) 100 mg PO BID VASU Gabapentin (Neurontin Cap(*)) 200 mg PO BEDTIME VASU Lactated Ringer's (Lactated Ringers 1000 Ml Bag*) 1,000 mls @ 100 mls/hr IV PER RATE VASU Lactulose (Lactulose*) 30 ml PO Q6H PRN Reason: constipation Magnesium Hydroxide (Milk Of Magnesia Liq*) 30 ml PO Q6H PRN Reason: constipation Morphine Sulfate (Morphine Inj (Syringe)*) 2 mg IV Q2H PRN Reason: PAIN Omeprazole (Prilosec Cap*) 40 mg PO 0730 VASU Ondansetron HCl (Zofran Inj*) 4 mg IV Q6H PRN Reason: nausea Ondansetron HCl (Zofran Tab*) 4 mg PO Q6H PRN Reason: NAUSEA Oxycodone HCl (Roxycodone Tab*) 10 mg PO Q4H PRN Reason: SEVERE PAIN Oxycodone/Acetaminophen (Percocet 5/325 Tab*) 1 tab PO Q3H PRN Reason: PAIN - MODERATE Oxycodone/Acetaminophen (Percocet 5/325 Tab*) 2 tab PO Q3H PRN Reason: PAIN - MODERATE Pharmacy Profile Note (Coumadin Daily Reminder*) 1 note FOLLOW UP 1700 VASU Polyethylene Glycol/Electrolytes (Miralax*) 17 gm PO DAILY PRN Reason: Constipation Tiotropium [place] (Spiriva Cap.Inh*) 1 cap INH QAM VASU Vital Signs 05/20/16 05/20/16 05/20/16 12:31 14:31 15:55 Temperature 98.2 F Pulse Rate 89 Respiratory 20 16 16 Rate Blood Pressure 150/77 (mmHg) O2 Sat by Pulse 96 Oximetry 05/20/16 05/20/16 05/20/16 16:00 18:35 19:47 Temperature 98.8 F Pulse Rate 90 94 Respiratory 16 20 Rate Blood Pressure 142/71 (mmHg) O2 Sat by Pulse 96 95 96 Oximetry 05/20/16 05/21/16 05/21/16 23:43 00:00 03:27 Temperature 98.2 F 98.2 F Pulse Rate 93 89 Respiratory 16 18 Rate Blood Pressure 133/71 149/66 (mmHg) O2 Sat by Pulse 95 95 98 Oximetry 05/21/16 05/21/16 05/21/16 07:52 08:00 09:51 Temperature 98.5 F Pulse Rate 90 85 Respiratory 16 16 15 Rate Blood Pressure 150/51 (mmHg) O2 Sat by Pulse 96 97 Oximetry Oxygen Devices in Use Now: None Appearance: NAD, sitting up in a chair Respiratory: Symmetrical Chest Expansion and Respiratory Effort, Clear to Auscultation Cardiovascular: NL Sounds; No Murmurs; No JVD, RRR Abdominal: NL Sounds; No Tenderness; No Distention Extremities: - - 1-2+ bilateral LE edema Skin: - - Dressing to left knee clean, dry and intact Lines/Tubes/Other Access: Clean, Dry and Intact Peripheral IV - site benign Nutrition: Taking PO's Result Diagrams: 05/21/16 06:13 05/19/16 07:00 Assess/Plan/Problems-Billing Assessment: Ms. Greenberg is a 75 yo female with a PMH of asthma, GERD, OA, HLD, Grave's disease , and overactive bladder who was admitted 05/18/16 for an elective left total knee replacement. - Patient Problems (1) Status post total left knee replacement Code(s): Z96.652 - PRESENCE OF LEFT ARTIFICIAL KNEE JOINT SNOMED Code(s): 1048473939758 Comment: - POD #3, management per ortho - HH stable, VSS - PT/OT - Continue pain management (2) Bilateral lower extremity edema Code(s): R60.0 - LOCALIZED EDEMA SNOMED Code(s): 949327191 Comment: - Chronic. Resume furosemide (3) GERD (gastroesophageal reflux disease) Code(s): K21.9 - GASTRO-ESOPHAGEAL REFLUX DISEASE WITHOUT ESOPHAGITIS SNOMED Code(s): 208307798 Comment: - Continue omeprazole. (4) Asthma Code(s): J45.909 - UNSPECIFIED ASTHMA, UNCOMPLICATED SNOMED Code(s): 081731238 Comment: - Stable. Continue Symbicort. (5) Graves disease Code(s): E05.00 - THYROTOXICOSIS W DIFFUSE GOITER W/O THYROTOXIC CRISIS SNOMED Code(s): 470941127 Comment: - Not on PTU or methimiazole. - Continue outpatient f/u with PCP. (6) HLD (hyperlipidemia) Code(s): E78.5 - HYPERLIPIDEMIA, UNSPECIFIED SNOMED Code(s): 38773577 Comment: - Continue atorvastatin. (7) Osteoarthritis SNOMED Code(s): 267253365 Comment: - Continue pain managment. - Relafen on hold in post-operative period while on warfarin. (8) DVT prophylaxis Code(s): DVN3290 - SNOMED Code(s): 527182076 Comment: - Per ortho - warfarin (9) Full code status Code(s): Z78.9 - OTHER SPECIFIED HEALTH STATUS SNOMED Code(s): 745705550 Status and Disposition: Inpatient admission. Disposition per orthopedics.
[2016-05-21 15:57] VITALS: BP 134/51
--- NOTE | 2016-05-22 02:36 | DS ---
DISCHARGE SUMMARY: DATE OF ADMISSION: 05/18/16 DATE OF DISCHARGE: 05/21/16 CHIEF COMPLAINT: 1. Left knee end-stage osteoarthritis. 2. Asthma. 3. GERD. 4. Graves disease. 5. Overactive bladder. 6. Hyperlipidemia. DISCHARGE DIAGNOSES: 1. Status post left total knee arthroplasty. 2. Asthma. 3. Gastroesophageal reflux disease. 4. Graves disease. 5. Overactive bladder. 6. Hyperlipidemia. PERTINENT PROCEDURE: Left total knee arthroplasty. CONSULTATIONS: 1. Physical Therapy. 2. Occupational Therapy. 3. Hospital Medicine. BRIEF HISTORY: Ms. Greenberg is a very pleasant 75-year-old female with end-stage osteoarthritis of the left knee who failed conservative treatment and elected to undergo a left total knee arthroplasty on 05/18/[address] Krys Santacruz. HOSPITAL COURSE: Ms. Greenberg was admitted to [facility] on 05/18/16, where she underwent a left total knee arthroplasty. Postoperatively, she recovered in the Surgical Short Stay Unit. On postoperative day, her Coll[place] was removed and she was able to void on her own without difficulty. She was advanced to a regular diet and her pain was controlled with p.o. Percocet. She was restarted on her home medications. Her labs and vital signs remained stable. She was able to weightbear as tolerated on the left lower extremity. She advanced appropriately with physical therapy and occupational therapy. Her DVT prophylaxis was managed with Lovenox and Coumadin until she reached therapeutic INR. By postoperative day 3, she was orthopedically and medically stable for discharge home with home services. PHYSICAL EXAMINATION: General: Well appearing, in no acute distress. Alert and oriented. Vital Signs: Temperature 98.5, pulse was 90, respirations were 16, blood pressure 151/50, and pulse oxygenation 96%. Examination of the left lower extremity demonstrates an incision that was clean, dry, and intact with a dressing replaced and erythema noted around the incision site. Minimal tenderness to light palpation. Neurovascularly, intact to light touch, bilateral lower extremities with posterior tibial pulses 2+ bilaterally. Minimal edema of the left lower extremity. Positive dorsiflexion and plantar flexion bilaterally. LABORATORY DATA ON THE DATE OF DISCHARGE: H and H of 9.5 and 27 with an INR of 2.04. RADIOGRAPHS: Postoperative radiographs of the left knee demonstrated a left total knee arthroplasty with satisfactory prosthetic placement. DISCHARGE MEDICATIONS: 1. Lipitor 5 mg p.o. at bedtime. 2. Symbicort 2 puffs inhaled b.i.d. 3. Gabapentin 200 mg p.o. at bedtime. 4. Omeprazole 40 mg p.o. daily. 5. Spiriva 2 puffs inhalation daily. 6. Percocet 5/325 mg p.o. 1 to 2 tablets q.4 hours p.r.n. 7. Albuterol 2 puffs inhalation q.4 hours p.r.n. 8. Biotin 10,000 mcg p.o. daily. 9. Calcium and vitamin D supplementation 1 tablet daily. 10. Vitamin D supplementation 1 tablet daily. 11. Colace 100 mg p.o. b.i.d. 12. Fish oil 1 tablet daily. 13. Furosemide 40 mg p.o. q.a.m. 14. Fish oil 1400 mg p.o. daily. 15. Probiotic 1 capsule p.o. daily. 16. Coumadin 2 mg 1 to 3 tablets at 5 p.m. as directed by physician. CONDITION ON DISCHARGE: Stable. DISCHARGE INSTRUCTIONS: Ms. Greenberg is a very pleasant 75-year-old female postoperative day 3, status post left total knee arthroplasty which was uncomplicated. She is orthopedically and medically stable for discharge to go home with home services. Her vital signs and labs are stable. She will be started on her home medications; however, was educated not to take her Relafen due to taking Coumadin at this timeframe. She will take 2 mg of Coumadin tonight, 4 mg of Coumadin on 05/22/16, and 2 mg of Coumadin on 05/23/16 with an INR drawn on 05/24/16. She will remain weight-bearing as tolerated in her left lower extremity. She will have home physical therapy twice a week. She will take Percocet as needed for pain control. She will take Colace up to 3 times a day for constipation. She will follow up with Dr. Santacruz in approximately 10 to 14 days for incision check and suture removal. She was instructed to go to the ER should she develop chest pain or shortness of breath. Should she develop fever, increasing redness, pain, or tenderness; she is to call the office immediately. NED HERNANDEZ [id number]/[facility] #: [id number] TOBIAS
== END 2016-05-21 17:15 | disposition home health service (06) | DRG 470 ==
LOC: AA 09:28 → SSU 17:02
PROVIDERS: ADMIT Orthopaedic Surgery Adult Reconstructive Orthopaedic Surgery; ATTEND Orthopaedic Surgery Adult Reconstructive Orthopaedic Surgery
PROC: 0SRD0J9 Replacement of Left Knee Joint with Synthetic Substitute, Cemented, Open Approach (ICD-10-PCS; principal; 2016-05-18 12:00)
DX: M17.12 Unilateral primary osteoarthritis, left knee (principal); E05.00 Thyrotoxicosis with diffuse goiter without thyrotoxic crisis or storm; N32.81 Overactive bladder; J45.909 Unspecified asthma, uncomplicated; E78.5 Hyperlipidemia, unspecified; Z98.51 Tubal ligation status; Z88.2 Allergy status to sulfonamides; Z88.5 Allergy status to narcotic agent; Z88.8 Allergy status to other drugs, medicaments and biological substances; Z82.49 Family history of ischemic heart disease and other diseases of the circulatory system; Z83.3 Family history of diabetes mellitus; Z80.0 Family history of malignant neoplasm of digestive organs; K21.9 Gastro-esophageal reflux disease without esophagitis; R60.9 Edema, unspecified; Z98.42 Cataract extraction status, left eye; Z98.41 Cataract extraction status, right eye; M25.762 Osteophyte, left knee
CPT/HCPCS: 36415; 80048; 85014; 85018; 85025; 85610; 90686; 90732; 94640; 94760; A9270-GY; C1776; J0690; J1100; J1650; J2250; J2405; J2704; J2795; J3010

== ENCOUNTER 2016-12-09 07:30 | Inpatient (IN) | payer MEDICARE, OTHER ==
--- NOTE | 2016-11-30 00:41 | HP ---
HISTORY AND PHYSICAL: DATE OF ADMISSION/SURGERY: 12/09/16 SURGEON: Krys Santacruz MD * (DICTATED BY NED HERNANDEZ) PROCEDURE: Right total knee arthroplasty. CHIEF COMPLAINT: Right knee pain. HISTORY OF PRESENT ILLNESS: Ms. Greenberg is a very pleasant 76-year-old female who has had a longstanding history of right knee severe osteoarthritis. She has failed conservative treatment such as anti-inflammatories, physical therapy, and injections in the past and has elected to proceed with a right total knee arthroplasty by Dr. Krys Santacruz on 12/09/16. PAST MEDICAL HISTORY: 1. GERD. 2. Graves' disease, no treatment. 3. Elevated cholesterol. 4. Asthma. 5. Bilateral leg edema. 6. History of leg cramps. PAST SURGICAL HISTORY: 1. Tubal ligation. 2. Carpal tunnel bilaterally. 3. Cataract surgery with implants. 4. Left total knee arthroplasty. MEDICATIONS: 1. Fish oil 14,000 mg b.i.d. 2. Spiriva inhaler 18 mcg 1 unit inhalation daily. 3. Furosemide 20 mg 1 tablet by mouth daily. 4. Symbicort 80/4.5 mcg/ACT 2 puffs twice daily. 5. Omeprazole 20 mg 2 tablets by mouth daily. 6. Nabumetone 500 mg 1 tablet by mouth twice daily as needed for pain. 7. Atorvastatin 10 mg 1 tablet by mouth daily. 8. Gabapentin 100 mg 1 tablet by mouth at night for 1 week, to titrate up. 9. ProAir HFA 108 mcg/ACT 2 puffs by mouth every 4 hours as needed. 10. Calcium plus vitamin D supplementation b.i.d. 11. Vitamin D 50,000 international units 1 tablet by mouth once weekly. 12. Acidophilus extra strength 1 tablet twice a day. 13. Biotin 500 mcg 1 tablet by mouth daily. ALLERGIES: 1. SULFA ANTIBIOTICS. 2. CODEINE. 3. DIFLUCAN. 4. PERCOCET. REVIEW OF SYSTEMS: General: Negative for fevers, chills, or night sweats. No difficulty with anesthesia. HEENT: Negative for lightheadedness, headaches, or syncopal episodes. Integumentary: Negative for abrasions, lesions, open wounds, or sores. Cardiothoracic: Negative for chest pain, palpitations, or edema. Positive for elevated cholesterol. Positive for bilateral leg edema. Pulmonary: Negative for chronic cough/COPD. Positive for shortness of breath with speaking. GI: Negative for nausea, vomiting, constipation. Positive for GERD. : Negative for urinary urgency, frequency, history of UTIs or kidney problems. Musculoskeletal: Positive for right knee pain. Positive for intermittent back pain. Positive for bilateral leg cramps. Neuro: Negative for paresthesias, numbness. No history of seizure, stroke, or epilepsy. Endocrine: Negative for diabetes. Positive for Graves disease. Hematologic: Negative for easy bruising, anemia, excessive bleeding. No history of DVTs or PEs. Infectious Disease: No history of MRSA, hepatitis C, or HIV. PHYSICAL EXAMINATION GENERAL: Well appearing, in no acute distress. Alert and oriented. VITAL SIGNS: Height 5 feet 3 inches, weight 184 pounds. Blood pressure 126/74 , pulse rate 77, temperature 97.6. HEENT: Normocephalic, atraumatic. EOMI. PULMONARY: Lungs clear to auscultation bilaterally. No crackles, rhonchi, or wheezes. Diminished breath sounds bilaterally. CARDIO: Regular rate and rhythm. No murmurs, gallops, or rubs. Positive to moderate edema in bilateral lower extremities. ABDOMEN: Soft, nontender, nondistended. Negative CVA tenderness bilaterally. NEUROLOGIC: Alert and oriented x3. Cranial nerves grossly intact. Sensation intact to light touch. MUSCULOSKELETAL: Posterior tibial pulses 2+ bilaterally. Negative Naman sign bilaterally. Positive medial and lateral joint line tenderness on the right knee. Range of motion of the right knee 3 to 125 degrees. RADIOGRAPHS: Right knee x-rays obtained on 11/26/16, which showed tricompartmental osteoarthritis. IMPRESSION: The patient is a pleasant 76-year-old female, who elected to undergo a right total knee arthroplasty due to her severe end-stage arthritis. Postoperatively, the patient would like to only use Tylenol if at all possible, as Percocet did give her nausea and vomiting, and she used Tylenol alone on her last knee replacement. No medications were called in for the patient postoperatively due to this. She will have PAT's at the hospital later today. She has no other questions or concerns, but will call if any arise. She was to undergo a colonoscopy; however, Dr. Santacruz encouraged her to cancel this. She will; however, be allowed to undergo an endoscopy due to her symptoms of shortness of breath. NED HERNANDEZ [id number]/[facility] #: [id number] TOBIAS
[~2016-12-09 07:30] MED LIST changes: +Buffered Lidocaine 0.9% SYRIN* 5 ML/SYR SYRINGE INTRADERM ONE; -Buffered Lidocaine 1% SYRIN* 3 ML/SYR SYRINGE INTRADERM ONE; -Famotidine IV* 10 MG/ML 2 ML (20 mg) IV ONE; +Levalbuterol 0.63MG/3ML NEB* UNIT OF USE INH ONE
[2016-12-09] MEDS ORDERED: Dexamethasone IV* 4 MG/ML 1 ML (4 MG) ONE (07:36)
[2016-12-09] MEDS ORDERED: Levalbuterol 1.25MG/0.5ML NEB ONE (07:36)
[2016-12-09] MEDS ORDERED: ceFAZolin 2 GM PREMIX (*) 50 ML IVPB ONE (07:37)
[2016-12-09] MEDS ORDERED: Buffered Lidocaine 0.9% SYRIN* 5 ML/SYR SYRINGE ONE (07:37)
[2016-12-09] MEDS ORDERED: Propofol* 10 MG/ML 20 ML BTL IV PUSH ONE (08:28)
[2016-12-09] MEDS ORDERED: Bupivacaine 0.5% SDV PF* 30 ML VIAL ONE (09:09)
[2016-12-09] MEDS ORDERED: Phenylephrine INJ* 10 MG/ML 1 ML VIAL (10 MG) ONE (09:09)
[2016-12-09] MEDS ORDERED: Midazolam* 1 MG/ML 5 ML VIAL (5 MG) ONE (09:36)
[2016-12-09] MEDS ORDERED: KETAMINE HCL* 50 MG/ML 10 ML VIAL ONE (09:37)
[2016-12-09] MEDS ORDERED: Morphine PF AMP (0.5MG/ML)* 5 MG/10 ML AMP ONE (09:37)
[2016-12-09] MEDS ORDERED: Ondansetron INJ* 2 MG/ML VIAL ONE (09:53)
[2016-12-09] MEDS ORDERED: DiMENhydriNATE IV* 50 MG/ML VIAL IV PUSH PRN (11:18)
[2016-12-09] MEDS ORDERED: Ondansetron INJ* 2 MG/ML VIAL IV PRN (11:18)
[2016-12-09] MEDS ORDERED: oxyCODONE/Acetamin 5/325 MG* TAB PO PRN ×2 (11:18)
[2016-12-09] MEDS ORDERED: Naloxone* 0.4 MG/ML 1 ML VIAL IV PRN (11:18)
[2016-12-09] MEDS ORDERED: Nalbuphine* 20 MG/ML 1 ML VIAL IV PRN ×2 (11:18)
[2016-12-09] MEDS ORDERED: Scopolamine 1.5 mg* PATCH TRANSDERM SCH (12:00)
[2016-12-09] MEDS ORDERED: Polyethylene Glycol 3350* 17 GM PACKET PO PRN (12:43)
[2016-12-09] MEDS ORDERED: Bisacodyl SUPP* 10 MG SUPP PR PRN (12:43)
[2016-12-09] MEDS ORDERED: Albuterol HFA INHALER* 8 gm MDI INH PRN (12:48)
--- NOTE | 2016-12-09 13:29 | RAD ---
HISTORY: Status post right knee arthroplasty COMPARISONS: November 26, 2016 VIEWS: 2, Frontal and lateral views of the right knee FINDINGS: BONE DENSITY: Normal. BONES: The patient is status post right knee arthroplasty. There is no hardware failure or osteolysis. JOINTS: The patient is status post right knee arthroplasty ALIGNMENT: There is no dislocation. SOFT TISSUES: Unremarkable. OTHER FINDINGS: None. IMPRESSION: STATUS POST RIGHT KNEE ARTHROPLASTY
[2016-12-09] MEDS: Ropivacaine* 300 MG in NS 0.9% 250 ML* 240 ML EPIDURAL SCH (14:15)
[2016-12-09] MEDS ORDERED: Warfarin TAB(*) 6 MG PO ONE (17:00)
[2016-12-09] MEDS: ceFAZolin 1 GM VIAL(*) 1 GM in NS 0.9% 50 ML* 50 ML IVPB SCH (17:43)
[2016-12-09] MEDS: Atorvastatin* 10 MG TAB PO SCH (17:44)
[2016-12-09] MEDS: Lactobacillus Acidophilu (GG)* 1 CAP CAP PO SCH (19:29)
[2016-12-09] MEDS: Gabapentin CAP(*) 100 MG PO SCH (19:29)
[2016-12-09] MEDS: Docusate CAP* 100 MG PO SCH (19:29)
[2016-12-09] MEDS: Magnesium Hydroxide LIQ* 30 ML UDC PO SCH (19:32)
[2016-12-09] MEDS: Mometasone/Formoter 100/5 MDI INH SCH (23:51)
[2016-12-10] MEDS: ceFAZolin 1 GM VIAL(*) 1 GM in NS 0.9% 50 ML* 50 ML IVPB SCH ×2 (01:43→10:59)
[2016-12-10] MEDS ORDERED: oxyCODONE TAB* 5 MG TAB PO PRN (02:00)
[2016-12-10] MEDS ORDERED: Ondansetron TAB* 4 MG PO PRN (02:00)
[2016-12-10] MEDS ORDERED: Ondansetron INJ* 2 MG/ML VIAL IV PRN (02:00)
[2016-12-10] MEDS ORDERED: diPHENhydraMINE IV* 50 MG/ML 1 ml VIAL (BENADRYL) IV PRN (02:00)
[2016-12-10] MEDS ORDERED: oxyCODONE/Acetamin 5/325 MG* TAB PO PRN (02:00)
[2016-12-10] MEDS ORDERED: Morphine INJ* 10 MG/ML 1 ML CARPUJECT IV PRN (02:00)
[2016-12-10] MEDS ORDERED: Scopolomine PATCH Remove* 1 NOTE MISC PATCH OFF ONE (06:00)
[2016-12-10 07:32] LABS: Hematocrit 27 % (35-47); Hemoglobin 9.3 g/dl (12.0-16.0)
[2016-12-10 07:48] LABS: BUN/Creatinine Ratio 26.7 (8-20); Calcium 8.6 mg/dL (8.6-10.3); EGFR African American 97.1 (>60); EGFR Non-African American 75.5 (>60)
[2016-12-10] MEDS ORDERED: Spiriva Inhaler DEVICE* 1 EACH DEVICE INH ONE (09:00)
[2016-12-10] MEDS ORDERED: Influenza VAC *QUAD* 2017-18* 0.5 ML SYRINGE IM ONE (09:00)
[2016-12-10] MEDS: Docusate CAP* 100 MG PO SCH ×2 (09:11→19:34)
[2016-12-10] MEDS: Vitamin THERAPEUTIC TAB PO SCH (09:11)
[2016-12-10] MEDS: Tiotropium CAP.INH* CAP.INH/18 MCG (USE ORDER SET !) INH SCH (09:11)
[2016-12-10] MEDS: Ferrous Sulfate TAB* 325 MG PO SCH (09:11)
[2016-12-10] MEDS: Acetaminophen TAB* 325 MG PO PRN ×2 (09:12→16:38)
[2016-12-10] MEDS: Lactobacillus Acidophilu (GG)* 1 CAP CAP PO SCH ×2 (09:12→19:34)
[2016-12-10] MEDS: Omeprazole CAP* 20 MG PO SCH (09:12)
[2016-12-10] MEDS: Furosemide TAB* 40 MG PO SCH (09:12)
[2016-12-10] MEDS: Mometasone/Formoter 100/5 MDI INH SCH (09:13)
[2016-12-10] MEDS: Magnesium Hydroxide LIQ* 30 ML UDC PO SCH ×2 (09:13→19:39)
--- NOTE | 2016-12-10 10:20 | PN ---
Progress Note - Progress Note Date of Service: 12/10/16 SOAP: Subjective: []Patient seen OOB in chair, vomited early this morning and again just now. Her pain has been well managed, denies SOB, CP. Objective: [] Vital Signs Temp 97.8 F 12/10/16 03:25 Pulse 81 12/10/16 03:25 Resp 16 12/10/16 05:38 BP 107/61 12/10/16 03:25 Pulse Ox 98 12/10/16 03:25 Intake & Output 12/09/16 12/10/16 12/10/16 18:59 06:59 18:59 Intake Total 3450 1509 Output Total 1550 750 Balance 1900 759 Weight 182 lb Intake: IV Fluids 2550 1009 ABX - CEFAZOLIN 50 LR 2500 959 NS 50ML, Cefazolin 2G 50 Oral 900 500 Output: Urine 200 Collazo 1100 750 Estimated Blood Loss 250 Other: # Bowel Movements 0 Laboratory Results - last 24 hr 12/10/16 12/10/16 12/10/16 07:02 07:02 07:02 Hgb 9.3 L Hct 27 L INR (Anticoag Therapy) 0.94 Sodium 134 Potassium 4.0 Chloride 97 L Carbon Dioxide 29 Anion Gap 8 BUN 20 Creatinine 0.75 Est GFR ( Amer) 97.1 Est GFR (Non-Af Amer) 75.5 BUN/Creatinine Ratio 26.7 H Glucose 102 H Calcium 8.6 Right knee dressings are dry and intact Hemovac drain was discontinued without complication by Dr. Santacruz this morning calf NT +DF/PF right ankle sensation and circulation intact Assessment: []s/p Right total knee arthoplasty POD #1 Plan: []PT/OT WBAT RLE Try Tramadol for pain Coumadin with Lovenox bridge- 8mg today Home w VNS over weekend
[2016-12-10] MEDS: traMADol TAB* 50 MG PO PRN (11:50)
--- NOTE | 2016-12-10 12:29 | OP ---
OPERATIVE REPORT: DATE OF OPERATION: 12/09/16 DATE OF : 44 ATTENDING SURGEON: rKys Santacruz MD [employer]: NED Brian Ms. Espinoza did help throughout the procedure with preparation of the leg, wound retraction, and ma nipulation of the knee and wound closure. ANESTHESIOLOGIST: Dr. Chawla. ANESTHESIA: Spinal. PRE-OP DIAGNOSIS: Severe end-stage degenerative osteoarthritis of the right knee joint, valgus defo rmity. POST-OP DIAGNOSIS: Severe end-stage degenerative osteoarthritis of the right knee joint, valgus def ormity. OPERATIVE PROCEDURE: Right total knee arthroplasty. COMPLICATIONS: None. TOURNIQUET TIME: 47 minutes. ESTIMATED BLOOD LOSS: 200 cc. SPECIMENS: Bone and cartilage from the right knee joint sent to Pathology. HARDWARE USED: This is a [employer] cemented total knee hardware. Two packages of Simplex adilene ne cement were used. For the femur, a size 5 right posterior stabilized narrow femoral component. For the tibia, a right size 3 tibial component. For the insert, a 13 mm posterior stabilized size 3 -4 articular insert. For the patella, 32-mm 3-peg all poly patella. BRIEF HISTORY/INDICATIONS: Ms. Greenberg is a 76-year-old female with years of increasingly severe right knee pain and valgus deformity. She failed conservative treatment with antiinflammatories, pain me dications, intraarticular injections, and physical therapy. She elected to undergo right total knee arthroplasty due to continued pain and decreased quality of life. Radiographs confirmed end-stage arthritis without deformity. Informed consent was obtained from the patient. She understood the ri sks of surgery included, but were not limited to bleeding, infection, damage to nearby structures, c ontinued pain, need for further surgery, intraoperative fracture, nerve palsy, hardware failure and loosening, knee stiffness, loss of motion, stroke, heart attack, blood clot, and . She wished to proceed. INTRAOPERATIVE FINDINGS: Intraoperatively, the patient had valgus deformity with complete loss of c artilage in the lateral and patellofemoral compartments. DESCRIPTION OF PROCEDURE: Ms. Greenberg was identified in the preanesthesia unit. Her right lower extre mity was marked as the correct operative side. Informed consent was signed and placed in the chart. The patient was taken to the operating room and placed under spinal anesthesia. Collazo catheter wa s placed. Tourniquet was placed on the right thigh. The right lower extremity was prepped and drap ed in the usual sterile fashion. Preop time-out was made to correctly identify the patient side and site. Appropriate preoperative antibiotics were given within 1 hour of incision. Tourniquet was inflated and total tourniquet time for this procedure was 47 minutes. A 12-cm midlin e incision was made with a 10 blade and carried down to the extensor mechanism. The extensor mechan ism was opened with a new 10 blade and using a standard medial parapatellar arthrotomy. Patella was subluxed laterally. Electrocautery was used to subperiosteally elevate soft tissue off the superome dial tibia to the mid sagittal plane. The knee was flexed up. A drill was used to enter the distal femur. Intramedullary distal femoral cutting guide was pinned and oscillating saw was used to make a distal femoral cut. External rotation guide was pinned on the distal femur. The distal femur wa s sized to a size 5. A size 5 multi-cutting jig was pinned on the distal femur. The oscillating sa w was used to make the appropriate chamfer cuts. The PCL was completely released. Extramedullary tibial cutting guide was pinned on the proximal tibia. Oscillating saw was used to m hui the appropriate proximal tibial cut. The bone was carefully removed. The knee was brought out into extension. Spacer block had good fit. There was good medial and lateral ligamentous balancing. The flexion and extension gaps were well balanced. The knee was flexed up. Lamina director distribution was placed both medially and laterally. Any remaining menis cus was carefully removed using electrocautery. Any posterior osteophytes were removed using a curv ed osteotome and curette. A size 5 narrow right femoral trial was impacted on to the femur and had excellent fit. The box for the posterior stabilized implant was prepared using a reamer and box cut osteotome. Size 3 tibial tray trial with an 11-mm insert trial were placed and the knee was taken through range of motion. The knee had full extension to 130 degrees of flexion with satisfactory pa tellofemoral tracking. The patella was everted. 9 mm of patellar bone and cartilage were carefully removed with an oscillating saw. The patella was size to size 32. The 3 peg holes were drilled thr ough the size 32 guide. A trial 32 patella was placed and the knee was taken through a range of motion. There was satisfacto ry patellofemoral tracking. All trials were carefully removed. The tibia was subluxed anteriorly an d sized to a size 3. Proximal tibia was prepared using a size 3 keel punch. All bony cut surfaces were copiously irrigated with sterile saline and dried. Final implants were cemented into place sta rting with the tibia followed by the femur, and lastly the patella. A 13-mm insert trial was placed and the knee was brought out to full extension. The tourniquet was turned down at 47 minutes. The knee was copiously irrigated with sterile saline. Electrocautery was used to obtain meticulous hemostasis. Once the cement was fully cured, the inse rt trial was removed and the excess cement was carefully removed from around the implant and capsule . Final insert chosen was a 13-mm posterior stabilized polyethylene insert. This was locked into p osition on the tibial tray. Stability of the insert was checked and rechecked and noted to be stabl e. The knee was once again copiously irrigated with sterile saline. Extensor mechanism was closed usin g an interrupted #1 Vicryl. The rest of the incision was closed using interrupted 0 and 2-0 Vicryls . The skin was closed using running 3-0 nylon suture. Sterile Xeroform, 4x4s, and Webril were used to cover the incision. Ned wrap and cold pack were placed over this. The patient's anesthesia was reversed without difficulty. She was taken to the PACU in stable condi tion. Intended weightbearing will be weightbearing as tolerated. Intended DVT prophylaxis will be Coumadin with Lovenox bridge. [id number]/[facility] #: [id number]
[2016-12-10] MEDS: Ropivacaine* 300 MG in NS 0.9% 250 ML* 240 ML EPIDURAL SCH (13:33)
[2016-12-10] MEDS: Enoxaparin(*) 40 MG/0.4 ML SYR SUBCUT SCH (13:37)
[2016-12-10] MEDS: Atorvastatin* 10 MG TAB PO SCH (16:38)
[2016-12-10] MEDS ORDERED: Warfarin TAB(*) 4 MG PO ONE (17:00)
[2016-12-10] MEDS: Gabapentin CAP(*) 100 MG PO SCH (19:34)
[2016-12-10] MEDS: PTO:Budesonide/Formote 80/4.5(NF) MDI INH SCH (22:30)
[2016-12-11] MEDS: traMADol TAB* 50 MG PO PRN ×3 (00:01→16:54)
[2016-12-11 06:38] LABS: Hematocrit 24 % (35-47); Hemoglobin 8.3 g/dl (12.0-16.0)
--- NOTE | 2016-12-11 07:35 | PN ---
Progress Note - Progress Note Date of Service: 12/11/16 SOAP: Subjective: Pt. is alert, pain controlled. Objective: RLE - dressing changed, inc c/d/i. distally nvi. Vital Signs: Temp Pulse Resp BP Pulse Ox 98.4 F 76 18 100/46 94 12/11/16 03:31 12/11/16 03:31 12/11/16 03:31 12/11/16 03:31 12/11/16 03:31 Laboratory Results - last 24 hr 12/10/16 12/10/16 12/10/16 07:02 07:02 07:02 Hgb 9.3 L Hct 27 L INR (Anticoag Therapy) 0.94 Sodium 134 Potassium 4.0 Chloride 97 L Carbon Dioxide 29 Anion Gap 8 BUN 20 Creatinine 0.75 Est GFR ( Amer) 97.1 Est GFR (Non-Af Amer) 75.5 BUN/Creatinine Ratio 26.7 H Glucose 102 H Calcium 8.6 12/11/16 12/11/16 06:28 06:28 Hgb 8.3 L Hct 24 L INR (Anticoag Therapy) 1.22 H Sodium Potassium Chloride Carbon Dioxide Anion Gap BUN Creatinine Est GFR ( Amer) Est GFR (Non-Af Amer) BUN/Creatinine Ratio Glucose Calcium Assessment: 76 yo F pod 2 s/p RTKA Plan: wbat rle pt/ot lovenox today, 8 mg coumadin tonight d/c to home 12/12
[2016-12-11] MEDS: Tiotropium CAP.INH* CAP.INH/18 MCG (USE ORDER SET !) INH SCH (09:04)
[2016-12-11] MEDS: Omeprazole CAP* 20 MG PO SCH (09:04)
[2016-12-11] MEDS: Lactobacillus Acidophilu (GG)* 1 CAP CAP PO SCH ×2 (09:04→20:54)
[2016-12-11] MEDS: Ferrous Sulfate TAB* 325 MG PO SCH (09:04)
[2016-12-11] MEDS: Acetaminophen TAB* 325 MG PO PRN ×2 (09:04→16:54)
[2016-12-11] MEDS: Magnesium Hydroxide LIQ* 30 ML UDC PO SCH ×2 (09:04→21:00)
[2016-12-11] MEDS: PTO:Budesonide/Formote 80/4.5(NF) MDI INH SCH (09:05)
[2016-12-11] MEDS: Vitamin THERAPEUTIC TAB PO SCH (09:05)
[2016-12-11] MEDS: Furosemide TAB* 40 MG PO SCH (09:05)
[2016-12-11] MEDS: Docusate CAP* 100 MG PO SCH ×2 (09:05→21:00)
[2016-12-11] MEDS: Ropivacaine* 300 MG in NS 0.9% 250 ML* 240 ML EPIDURAL SCH (12:40)
[2016-12-11] MEDS: Enoxaparin(*) 40 MG/0.4 ML SYR SUBCUT SCH (13:29)
[2016-12-11] MEDS: Atorvastatin* 10 MG TAB PO SCH (16:55)
[2016-12-11] MEDS ORDERED: Warfarin TAB(*) 4 MG PO ONE (17:00)
[2016-12-11] MEDS: Gabapentin CAP(*) 100 MG PO SCH (20:53)
[2016-12-12] MEDS: PTO:Budesonide/Formote 80/4.5(NF) MDI INH SCH ×2 (06:36→10:01)
[2016-12-12 07:19] LABS: Hematocrit 26 % (35-47)
--- NOTE | 2016-12-12 08:33 | PN ---
Progress Note - Progress Note Date of Service: 12/12/16 SOAP: Subjective: Pt sitting up in bed eating breakfast. Pain well controlled. Denies N/V. Objective: Dressing clean, Dry. Calves soft, non tender. DP pulses 2+. Sensation intact to light touch Vital Signs: Temp Pulse Resp BP Pulse Ox 97.9 F 79 16 119/60 97 12/12/16 03:44 12/12/16 03:44 12/12/16 03:44 12/12/16 03:44 12/12/16 03:44 Laboratory Last Values Hgb 9.0 g/dl (12.0-16.0) L 12/12/16 06:36 Hct 26 % (35-47) L 12/12/16 06:36 INR (Anticoag Therapy) 1.93 (0.89-1.11) H 12/12/16 06:36 Sodium 134 mmol/L (133-145) 12/10/16 07:02 Potassium 4.0 mmol/L (3.5-5.0) 12/10/16 07:02 Chloride 97 mmol/L (101-111) L 12/10/16 07:02 Carbon Dioxide 29 mmol/L (22-32) 12/10/16 07:02 Anion Gap 8 mmol/L (2-11) 12/10/16 07:02 BUN 20 mg/dL (6-24) 12/10/16 07:02 Creatinine 0.75 mg/dL (0.51-0.95) 12/10/16 07:02 Est GFR ( Amer) 97.1 (>60) 12/10/16 07:02 Est GFR (Non-Af Amer) 75.5 (>60) 12/10/16 07:02 BUN/Creatinine Ratio 26.7 (8-20) H 12/10/16 07:02 Glucose 102 mg/dL (70-100) H 12/10/16 07:02 Calcium 8.6 mg/dL (8.6-10.3) 12/10/16 07:02 Assessment: s/p right TKA POD #3 Plan: OOB PT/OT Pain control - Tramadol Coumadin for DVT prophylaxis D/C home today
[2016-12-12] MEDS: Docusate CAP* 100 MG PO SCH (10:00)
[2016-12-12] MEDS: Magnesium Hydroxide LIQ* 30 ML UDC PO SCH (10:00)
[2016-12-12] MEDS: Vitamin THERAPEUTIC TAB PO SCH (10:01)
[2016-12-12] MEDS: Tiotropium CAP.INH* CAP.INH/18 MCG (USE ORDER SET !) INH SCH (10:01)
[2016-12-12] MEDS: Lactobacillus Acidophilu (GG)* 1 CAP CAP PO SCH (10:01)
[2016-12-12] MEDS: Omeprazole CAP* 20 MG PO SCH (10:01)
[2016-12-12] MEDS: Furosemide TAB* 40 MG PO SCH (10:01)
[2016-12-12] MEDS: Ferrous Sulfate TAB* 325 MG PO SCH (10:01)
[2016-12-12] MEDS: Ropivacaine* 300 MG in NS 0.9% 250 ML* 240 ML EPIDURAL SCH (10:05)
[2016-12-12] MEDS: Enoxaparin(*) 40 MG/0.4 ML SYR SUBCUT SCH ×2 (10:51→11:01)
[2016-12-12 12:11] VITALS: BP 122/63
--- NOTE | 2016-12-13 00:14 | DS ---
DISCHARGE SUMMARY: DATE OF ADMISSION: 12/09/16 DATE OF DISCHARGE: 12/12/16 ATTENDING PHYSICIAN: Dr. Krys Santacruz.* (DICTATED BY NED JAMES) PRINCIPAL DIAGNOSIS: Right knee osteoarthritis. SECONDARY DIAGNOSES: 1. Gastroesophageal reflux disease. 2. Graves disease, no treatment. 3. Elevated cholesterol. 4. Asthma. 5. Bilateral leg edema. 6. History of leg cramps. PRINCIPAL PROCEDURE: Right total knee arthroplasty. REASON FOR HOSPITALIZATION AND HISTORY OF PRESENT ILLNESS: Ms. Greenberg is a 76- year- old female who has had longstanding history of right knee severe osteoarthritis. She said she had failed conservative treatments such as anti- inflammatories, physical therapy injections in the past and elected to proceed with right total knee arthroplasty by Dr. Santacruz on 12/09/16. HOSPITAL COURSE: The patient was admitted to the hospital and underwent right total knee arthroplasty on 12/09/16. She was without any complications. She was taken to the recovery room and subsequently the surgery stay unit in a stable condition. She had participated in physical therapy and occupational therapy throughout the hospital course and had done well with it. She has been receiving oxycodone initially, but had some nausea and medication was changed to tramadol for postoperative pain management. Daily INRs were checked after Coumadin dosing. Hemoglobin and hematocrit were checked daily throughout the hospital course. Hemoglobin was 9.0 and hematocrit 26, INR 1.93 on the day of discharge. The patient was discharged to home on 12/12/16 in a stable condition. DISCHARGE INSTRUCTIONS: Weightbearing as tolerated. Wound care: Okay to shower. No bathing, swimming, submerging wound. Use gentle soap, pat dry, cover with gauze, Ned wrap, or tape. Call Orthopedic office for increased drainage, redness, increased pain or fever. Go to ER for shortness of breath or chest pain. DIET: Regular, increase fluids, and fiber to prevent constipation. Continue to use stool softeners, call office if no bowel movement within 48 hours. Continue physical therapy and occupational therapy exercises as shown. Visiting home nurse to do wound checks. Visiting home nurse to draw blood work for INR on Mondays and . Coumadin dosing: Take 4 mg tonight. Visiting home nurse will redraw INR on 12/13/16. Antibiotics required prior to any dental work. Follow up with Dr. Santacruz within 10 to 14 days. Call the Orthopedic office for an appointment. NED JAMES [id number]/[facility] #: [id number] [employer]
== END 2016-12-12 14:00 | disposition home or self-care (01) | DRG 470 ==
LOC: AA 07:37 → SSU 14:57
PROVIDERS: ADMIT Orthopaedic Surgery Adult Reconstructive Orthopaedic Surgery; ATTEND Orthopaedic Surgery Adult Reconstructive Orthopaedic Surgery
PROC: 0SRC0J9 Replacement of Right Knee Joint with Synthetic Substitute, Cemented, Open Approach (ICD-10-PCS; principal; 2016-12-09 10:00)
DX: M17.11 Unilateral primary osteoarthritis, right knee (principal); E05.00 Thyrotoxicosis with diffuse goiter without thyrotoxic crisis or storm; K21.9 Gastro-esophageal reflux disease without esophagitis; J45.909 Unspecified asthma, uncomplicated; E78.00 Pure hypercholesterolemia, unspecified; Z96.652 Presence of left artificial knee joint; R60.0 Localized edema; Z79.899 Other long term (current) drug therapy; Z88.5 Allergy status to narcotic agent; Z88.2 Allergy status to sulfonamides; Z88.8 Allergy status to other drugs, medicaments and biological substances
CPT/HCPCS: 36415; 80048; 85014; 85018; 85610; 90686; 94760; A9270-GY; C1776; J0690; J1100; J1650; J2250; J2405; J2704; J2795

== ENCOUNTER 2018-09-12 12:47 | Inpatient (IN) | payer MEDICARE, OTHER ==
--- NOTE | 2018-09-08 23:25 | HP ---
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 Santacruz.* (DICTATED BY NED LOVE) PROCEDURE: Open repair of right patellar tendon rupture. CHIEF COMPLAINT: Right knee pain. HISTORY OF PRESENT ILLNESS: Ms. Greenberg is a 77-year-old female who has had bilateral total knee arthroplasties by Dr. Santacruz in 2016. On 08/27/18, she got up to use the bathroom in the middle of the night and had a fall. Since then she has had 6/10 pain in her right anterior knee. She cannot fully extend the knee. She has been in a knee immobilizer, ambulating with crutches and a rolling walker. Bending the knee and walking both increase the pain. She has been using Tylenol for pain control. Radiographs indicate a patellar tendon rupture at the tibial tuberosity around her total knee arthroplasty. The patient also reports that over the last 2 weeks she has been developing cellulitis of the right lower extremity. PAST MEDICAL HISTORY: Hypertension, asthma, osteoarthritis, and Graves disease. PAST SURGICAL HISTORY: Bilateral cataract excision, bilateral carpal tunnel release, right total knee arthroplasty in November 2016, left total knee arthroplasty in April 2016. MEDICATIONS: 1. Fish oil 1400 mg p.o. twice a day. 2. Spiriva HandiHaler 18 mcg 1 unit inhalation daily. 3. Furosemide 20 mg 1 p.o. daily. 4. Symbicort 80/4.5 mcg/act 2 puffs per day. 5. Omeprazole 20 mg 2 tabs p.o. daily. 6. Nabumetone 500 mg 1 tablet p.o. twice daily as needed for pain. 7. Atorvastatin calcium 10 mg 1 p.o. daily. 8. Gabapentin 100 mg 1 tablet p.o. at night for 1 week, then 1 p.o. twice daily. 9. ProAir HFA 108 mcg 2 puffs per day every 4 hours as needed. 10. Calcium 600 + vitamin D 600-200 mg per unit 1 p.o. twice a day. 11. Vitamin D 50,000 units 1 capsule p.o. once weekly. 12. Acidophilus Extra Strength 1 tab twice a day p.o. 13. Biotin Plus 1000 mcg 1 tab p.o. daily. 14. Tylenol 8 HR 650 mg 1 p.o. in the morning and 1 at night. 15. Amoxicillin 500 mg 4 tabs 1 hour before any dental work. ALLERGIES: SULFA ANTIBIOTICS, CODEINE, DIFLUCAN. FAMILY HISTORY: Positive for hypertension and cancer. Negative for DVT. 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 She lives at home with her spouse. She denies tobacco, recreational drug use, or alcohol use. She uses a cane to ambulate outside of her home. REVIEW OF SYSTEMS: General: Negative for fevers, chills, night sweats, unexplained weight loss or gain, no known anesthesia problems. HEENT: Negative for headache, lightheadedness, syncopal episodes, visual changes. Integumentary: Negative for abrasions, lesions, open wounds. Cardiothoracic: Negative for hypertension, chest pain, palpitations, edema. Respiratory: Positive for chronic cough. Negative for shortness of breath with exertion, wheezing. GI: Positive for GERD. Negative for nausea, vomiting, diarrhea, constipation. : Negative for nocturia, urinary frequency, urgency, history of UTIs, kidney problems. Musculoskeletal: Positive for right knee pain. Negative for chronic or intermittent back pain or history of fractures. Neurologic: Negative for paresthesias, numbness, history of seizure, stroke, poor balance. Negative for anxiety, depression. Endocrine: Positive for thyroid disease. Negative for diabetes. Rheumatologic: Positive for easy bruising and anemia. Negative for bleeding disorders, history of DVT. ID: Negative for history of MRSA, hep C, or HIV. PHYSICAL EXAMINATION GENERAL: Well-developed, well-nourished 77-year-old female in no acute distress. VITAL SIGNS: Height 63 inches, weight 180 pounds, BP 120/60, respirations 16, temperature 98, BMI 31.9. HEENT: Normocephalic, atraumatic. PERRLA. Extraocular movements intact. NECK: Supple. No palpable lymph nodes. Throat is clear. PULMONARY: Lungs are clear to auscultation bilaterally. No wheezes, rales, or rhonchi. CARDIO: Regular rate and rhythm. S1, S2 normal. No murmurs, rubs, or gallops. No edema. ABDOMEN: Positive bowel sounds. Soft and nontender. NEUROLOGIC: A and O x3. Cranial nerves II through XII intact. Sensation is intact to light touch. MUSCULOSKELETAL: Right lower extremity: The patient's skin is intact. No abrasions or open wounds. No palpable masses or lymph nodes. She has some mild nonpitting edema and erythema which is consistent with cellulitis along the distal tibia and foot. She was unable to straight-leg raise. She has 20- degree extensor leg, able to flex to 90 degrees. Distally, she has 5/5 ankle dorsiflexion and plantarflexion strength. She has full sensation to light touch in all nerve distributions and a 2+ palpable DP pulse. DIAGNOSTIC STUDIES: Multiple views show no avulsion fracture of the tibial tubercle and some patella evans. IMPRESSION: Right knee patellar tendon rupture. PLAN/RECOMMENDATIONS: The patient is scheduled to undergo an open right patellar tendon rupture repair with Dr. Santacruz on 09/12/18. Dr. Santacruz discussed the procedure as well as the risks and benefits with the patient. She elected to proceed. She will return to the office 10 to 14 days postop for followup and suture removal. Upon discharge from the hospital, a prescription will be written and e-scribed to the patient's pharmacy for postoperative pain management. I-STOP was completed today in the office. NED SIMMONS [id number]/[facility] #: [id number] MTDD
[~2018-09-12 12:47] MED LIST changes: +Acetaminophen TAB* 325 MG PO ONE; -Buffered Lidocaine 0.9% SYRIN* 5 ML/SYR SYRINGE INTRADERM ONE; +Buffered Lidocaine 1% SYRIN* 1 ML/SYRINGE INTRADERM ONE; -Dexamethasone IV* 4 MG/ML 1 ML (4 MG) IV SLOW PU ONE; +Dexamethasone TAB* 4 MG PO ONE; +DiMENhydriNATE IV* 50 MG/ML VIAL IV PUSH PRN; +Famotidine IV* 10 MG/ML 2 ML (20 mg) IV ONE; +Gabapentin CAP(*) 300 MG PO ONE; +HYDROmorphone INJ1* 1 MG/ML SYRINGE IV PRN; +Lactated Ringers 1000 ML Bag* 1,000 ML IV SCH; -Levalbuterol 0.63MG/3ML NEB* UNIT OF USE INH ONE; +Naloxone* 0.4 MG/ML 1 ML VIAL IV PRN; +Ondansetron ODT TAB* 4 MG PO ONE; +PROCHLORPERAZINE INJ 5 MG/ML 2 ML VIAL IV PRN; +celeCOXIB CAP* 200 MG PO ONE; +fentaNYL* 50 MCG/ML 2 ML VIAL (100 MCG VIAL) IV PRN; +oxyCODONE TAB* 5 MG TAB PO PRN
--- OUTSIDE RECORDS SUMMARY | 2018-09-12 12:51 | XMS REPORT | Continuity of Care Document ---
:1940 External Reference #:[id number] Author Name Nicole Mckeon Care Team Providers Name Role Phone PerezSriramDO Primary Care Physician Unavailable Payers Date Identification Numbers Payment Provider Subscriber Policy Number: [id number] Medicare Alex E Clinton PayID: [id number] [address] [place] [address] Expires: 2018 Policy Number: [id number] Medicare Alex E Clinton PayID: [id number] [address] [place] [address] Policy Number: [id number] [employer] Alex E Clinton Group Number: [id number] [address] PayID: [id number] [place] [address] Problems Active Problems Provider Date Localized, primary osteoarthritis Krys Santacruz M.D. Onset: 04/02/2016 Arthroplasty of knee Krys Santacruz M.D. Onset: 03/02/2017 Non-traumatic rupture of patellar tendon Krys Santacruz M.D. Onset: 09/04/2018 Cellulitis of right lower limb Krys Snatacruz M.D. Onset: 09/04/2018 Social History Type Date Description Comments Sex Unknown Lives With Spouse Occupation Retired ETOH Use Denies alcohol use Tobacco Use Start: Unknown Patient has never smoked Smoking Status Reviewed: 09/08/18 Patient has never smoked Exercise Type/Frequency Exercises sporadically Allergies, Adverse Reactions, Alerts Active Allergies Reaction Severity Comments Date Sulfa Antibiotics Urticaria 04/02/2016 Codeine 04/02/2016 Diflucan Urticaria 04/02/2016 Medications Active Medications SIG Qnty Indications Ordering Date Provider Augmentin 1 tablet by mouth 30tabs L03.115 Krys Santacruz, 09/04/2018 500-125mg twice a day x 14 M.D. Tablets days Meloxicam take 1 tab by 30tabs Krys Santacruz, 01/19/2017 15mg Tablets mouth with food M.D. once a day Fish Oil twice a day Krys Santacruz, 04/02/[address] C[address] Scruggs 8 Hour 1 in the morning, Unknown Arthritis Pain 1 at night 650mg Tablets ER Biotin 1 tab daily otc Unknown 5000mcg Capsules Acidophilus Extra 1 tab twice a day Unknown Strength by mouth every day Capsules Vitamin D take one capsule Unknown (Ergocalciferol) by mouth once weekly [id number] Capsules Calcium 600 + D 1 by mouth twice a Unknown day [id number] Tablets Proair HFA 2 puffs by mouth Unknown 108(90Base) every 4 hours as mcg/Act Aerosol needed Gabapentin take 1 capsule by Unknown 100mg mouth at night for Capsules 1 week then 1 by mouth twice daily ongoing Atorvastatin Calcium 1 by mouth every Unknown day 10mg Tablets Nabumetone take one Unknown 500mg capsule/tablet by Tablets mouth twice daily as needed for pain, please stop other nsaids Omeprazole 2 by mouth every Unknown 20mg Tablets day Symbicort 2 puff twice a day Unknown 80-4.5mcg/Act Aerosol Furosemide 1 by mouth every Unknown 20mg Tablets day Spiriva Handihaler 1 unit inhalation Unknown daily 18mcg Capsules History Medications Tramadol HCL 1 tablet by mouth 60tabs Krys Santacruz, 12/11/2016 - 50mg every 6 hours as M.D. 12/21/2016 Tablets needed pain Amoxicillin 4 tablets 1 hour 4caps Krys Santacruz, 11/26/2016 - 500mg before dental M.D. 09/04/2018 Capsules work Cephalexin 1 capsule by 56caps Z96.652 Krys Santacruz, 06/02/2016 - 500mg mouth every 6 M.D. 06/29/2016 Capsules hours Keflex 1 tab by mouth 28caps Z96.652 Krys Santacruz, 05/25/2016 - 500mg Capsules four times a day M.D. 02/11/2017 Coumadin take 1-3 tabs by 90tabs Krys Santacruz, 05/07/2016 - 2mg Tablets mouth at 5 at M.D. 06/29/2016 night as directed Percocet 1-2 by mouth 90tabs Krys Santacruz, 05/07/2016 - 5-325mg every 4-6 hours M.D. 06/29/2016 Tablets as needed pain Colace 1 tab by mouth 90caps Krys Santacruz, 05/07/2016 - 100mg Capsules 2-3 times a day M.D. 06/29/2016 as needed Vital Signs Date Vital Result Comment 09/08/2018 9:40am Height 63 inches 5'3" Weight 180.00 lb BP Systolic 120 mmHg BP Diastolic 58 mmHg Respiratory Rate 16 /min Body Temperature 98.0 F Pain Level 0 BMI (Body Mass Index) 31.9 kg/m2 09/04/2018 10:58am Height 63 inches 5'3" Weight 180.00 lb Heart Rate 73 /min Body Temperature 97.6 F O2 % BldC Oximetry 98 % BMI (Body Mass Index) 31.9 kg/m2 08/28/2018 2:18pm Height 63 inches 5'3" Weight 180.00 lb Heart Rate 90 /min BP Systolic 148 mmHg BP Diastolic 80 mmHg Body Temperature 98.9 F Pain Level 3 BMI (Body Mass Index) 31.9 kg/m2 03/02/2017 11:22am Height 63 inches 5'3" Weight 180.00 lb per pt Heart Rate 72 /min reg BP Systolic Sitting 124 mmHg Lue, reg cuff BP Diastolic Sitting 80 mmHg Lue, reg cuff Respiratory Rate 16 /min Pain Level 4 right knee BMI (Body Mass Index) 31.9 kg/m2 01/19/2017 10:21am Height 63 inches 5'3" Weight 180.00 lb BP Systolic 128 mmHg BP Diastolic 70 mmHg Body Temperature 97.9 F BMI (Body Mass Index) 31.9 kg/m2 12/22/2016 10:36am Height 63 inches 5'3" Weight 185.00 lb Heart Rate 90 /min BP Systolic 131 mmHg BP Diastolic 65 mmHg Body Temperature 97.4 F Pain Level 2 BMI (Body Mass Index) 32.8 kg/m2 11/26/2016 9:31am Height 63 inches 5'3" Weight 184.00 lb Heart Rate 77 /min BP Systolic 126 mmHg BP Diastolic 74 mmHg Body Temperature 97.6 F BMI (Body Mass Index) 32.6 kg/m2 08/20/2016 11:30am Height 63 inches 5'3" Weight 180.00 lb Heart Rate 71 /min BP Systolic 123 mmHg BP Diastolic 71 mmHg Pain Level 0 BMI (Body Mass Index) 31.9 kg/m2 07/09/2016 1:00pm Height 63 inches 5'3" Weight 180.00 lb Heart Rate 60 /min BP Systolic 108 mmHg BP Diastolic 70 mmHg Respiratory Rate 16 /min Body Temperature 97.7 F Pain Level 0 BMI (Body Mass Index) 31.9 kg/m2 06/09/2016 10:36am Height 63 inches 5'3" Weight 180.00 lb Heart Rate 93 /min BP Systolic 126 mmHg BP Diastolic 73 mmHg Pain Level 0 BMI (Body Mass Index) 31.9 kg/m2 06/02/2016 10:23am Height 62 inches 5'2" Weight 184.00 lb Heart Rate 92 /min BP Systolic 127 mmHg BP Diastolic 73 mmHg Respiratory Rate 16 /min Body Temperature 97.9 F Pain Level 0 BMI (Body Mass Index) 33.7 kg/m2 05/25/2016 1:50pm Height 62 inches 5'2" Weight 184.00 lb Heart Rate 83 /min BP Systolic 127 mmHg BP Diastolic 65 mmHg Body Temperature 98.2 F BMI (Body Mass Index) 33.7 kg/m2 05/07/2016 8:40am Height 62 inches 5'2" Weight 184.00 lb Heart Rate 83 /min BP Systolic 129 mmHg BP Diastolic 80 mmHg BMI (Body Mass Index) 33.7 kg/m2 04/02/2016 2:27pm Height 62 inches 5'2" Weight 180.00 lb Heart Rate 81 /min BP Systolic 150 mmHg BP Diastolic 86 mmHg Respiratory Rate 17 /min Pain Level 5 BMI (Body Mass Index) 32.9 kg/m2 Results Test Date Facility Test Result H/L Range Note Xray 08/28/2018 [facility] Knee 3 Views <pending> [address] [place] [address] [phone] Inr/Protime 01/03/2017 [facility] Inr 2.16 High 0.89-1.[address] [place] [address] [phone] Inr/Protime 12/27/2016 [facility] Inr 2.07 High 0.89-1.[address] [place] [address] [phone] Inr/Protime 12/23/2016 [facility] Inr 1.72 High 0.89-1.[address] [place] [address] [phone] Protime W/ Inr 12/20/2016 [facility] Inr 1.23 High 0.89-1.[address] [place] [address] [phone] Inr/Protime 11/26/2016 [facility] Inr 0.85 Low 0.89-1.[address] [place] [address] [phone] Laboratory test 11/26/2016 [facility] Partial 30.8 seconds N 26.0-36.[address] [place] [address] PTT [phone] CBC No Diff 11/26/2016 [facility] White Blood 6.5 10^3/uL N 3.5-10.[address] [place] [address] [phone] Red Blood Count 4.41 10^6/uL N 4.0-5.4 Hemoglobin 11.7 g/dL Low 12.0-16.0 Hematocrit 35 % N 35-47 Mean Corpuscular Volume 78 fL Low 80-97 Mean Corpuscular Hemoglobin 27 pg N 27-31 Mean Corpuscular HGB Conc 34 g/dL N 31-36 Red Cell Distribution Width 19 % High 10.5-15 Platelet Count 219 10^3/uL N 150-450 Mean Platelet Volume 9 um3 N 7.4-10.4 Comp Metabolic Panel 11/26/2016 [facility] Sodium 135 mmol/L N 133-[address] [place] [address] [phone] Potassium 3.9 mmol/L N 3.5-5.0 Chloride 99 mmol/L Low 101-111 Co2 Carbon Dioxide 24 mmol/L N 22-32 Anion Gap 12 mmol/L High 2-11 Glucose 82 mg/dL N 70-100 Blood Urea Nitrogen 15 mg/dL N 6-24 Creatinine 0.79 mg/dL N 0.51-0.95 BUN/Creatinine Ratio 19.0 N 8-20 Calcium 9.3 mg/dL N 8.6-10.3 Total Protein 7.1 g/dL N 6.4-8.9 Albumin 4.5 g/dL N 3.2-5.2 Globulin 2.6 g/dL N 2-4 Albumin/Globulin Ratio 1.7 N 1-3 Total Bilirubin 0.40 mg/dL N 0.2-1.0 Alkaline Phosphatase 70 U/L N 34-104 Alt 23 U/L N 7-52 Ast 26 U/L N 13-39 Egfr Non- 71.1 N >60 Egfr 91.5 N >60 6 Urine Culture And 11/26/2016 [facility] Urine Culture SEE RESULT [address] [place] [address] [phone] Urinalysis Profile 11/26/2016 [facility] Urine Color Straw N [address] [place] [address] [phone] Urine Appearance Clear N Urine Specific [place] 1.004 Low 1.010-1.030 Urine pH 6.0 N 5-9 Urine Urobilinogen Negative N Negative Urine Ketones Negative N Negative Urine Protein Negative N Negative Urine Leukocytes Negative N Negative Urine Blood Negative N Negative Urine Nitrite Negative N Negative Urine Bilirubin Negative N Negative Urine Glucose Negative N Negative Urine White Blood Cell Absent N Absent Urine Red Blood Cell Trace(0-2/hpf) N Absent Urine Bacteria Absent N Absent Urine Squamous Epithelial Cell Present Abnormal Absent Type & Screen 11/26/2016 [facility] Patient Blood Type O Negative N [address] [place] [address] [phone] Antibody Screen NEGATIVE N Inr/Protime 06/10/2016 [facility] Inr 1.84 High 0.89-1.[address] [place] [address] [phone] Inr/Protime 06/07/2016 [facility] Inr 2.11 High 0.89-1.[address] [place] [address] [phone] Inr/Protime 06/03/2016 [facility] Inr 1.24 High 0.89-1.[address] [place], [place] [address] [phone] Urine Culture And 05/07/2016 [facility] Urine SEE RESULT [address] [place] [address] [phone] Type & Screen 05/07/2016 [facility] Patient O Negative N [address] [place] [address] [phone] Antibody Screen NEGATIVE N Laboratory test 05/07/2016 [facility] Partial 31.6 seconds N 26.0-36.[address] [place] [address] PTT [phone] Inr/Protime 05/07/2016 [facility] Inr 0.88 Low 0.89-1.[address] [place], [place] [address] [phone] Comp Metabolic 05/07/2016 [facility] Sodium 135 mmol/L N 133- [address] [place] [address] [phone] Potassium 3.7 mmol/L N 3.5-5.0 Chloride 100 mmol/L Low 101-111 Co2 Carbon Dioxide 29 mmol/L N 22-32 Anion Gap 6 mmol/L N 2-11 Glucose 92 mg/dL N 70-100 Blood Urea Nitrogen 23 mg/dL N 6-24 Creatinine 0.81 mg/dL N 0.51-0.95 BUN/Creatinine Ratio 28.4 High 8-20 Calcium 9.8 mg/dL N 8.6-10.3 Total Protein 7.3 g/dL N 6.4-8.9 Albumin 4.6 g/dL N 3.2-5.2 Globulin 2.7 g/dL N 2-4 Albumin/Globulin Ratio 1.7 N 1-3 Total Bilirubin 0.40 mg/dL N 0.2-1.0 Alkaline Phosphatase 67 U/L N 34-104 Alt 24 U/L N 7-52 Ast 27 U/L N 13-39 Egfr Non- 69.3 N >60 Egfr 89.1 N >60 13 CBC No Diff 05/07/2016 [facility] White Blood 6.5 10^3/uL N 3.5-10.[address] [place] [address] [phone] Red Blood Count 4.51 10^6/uL N 4.0-5.4 Hemoglobin 13.0 g/dL N 12.0-16.0 Hematocrit 38 % N 35-47 Mean Corpuscular Volume 85 fL N 80-97 Mean Corpuscular Hemoglobin 29 pg N 27-31 Mean Corpuscular HGB Conc 34 g/dL N 31-36 Red Cell Distribution Width 15 % N 10.5-15 Platelet Count 196 10^3/uL N 150-450 Mean Platelet Volume 9 um3 N 7.4-10.4 Urinalysis Profile 05/07/2016 [facility] Urine Color Colorless N [address] [place] [address] [phone] Urine Appearance Clear N Urine Specific [place] 1.004 Low 1.010-1.030 Urine pH 6.0 N 5-9 Urine Urobilinogen Negative N Negative Urine Ketones Negative N Negative Urine Protein Negative N Negative Urine Leukocytes Negative N Negative Urine Blood Negative N Negative Urine Nitrite Negative N Negative Urine Bilirubin Negative N Negative Urine Glucose Negative N Negative 1 PLEASE CALL STAT RESULTS TO DR THOMPSON AT [phone] [id number] 2 CALL RESULTS TO [phone] CALL STAT RESULT TO [phone] PLEASE CALL STAT RESULTS TO [phone] PAIN IN RIGHT KNEE, EFFUSION, RIGHT KNEE, UNILATER 6 Because ethnic data is not always readily available, this report includes an eGFR for both -Americans and non- Americans. The National Kidney Disease Education Program (NKDEP) does not endorse the use of the MDRD equation for patients that are not between the ages of 18 and 70, are , have extremes of body size, muscle mass, or nutritional status, or are non- or non-. According to the National Kidney Foundation, irrespective of diagnosis, the stage of the disease is based on the level of kidney function: Stage Description GFR(mL/min/1.73 m(2)) 1 Kidney damage with normal or decreased GFR 90 2 Kidney damage with mild decrease in GFR 60-89 3 Moderate decrease in GFR 30-59 4 Severe decrease in GFR 15-29 5 Kidney failure <15 (or dialysis) 7 SEE RESULT BELOW Name: ALEX GREENBERG : [address]: Krys Santacruz MD Acct: [id number] Unit: [id number] AGE: 76 Location: [facility] Re11/26/16 SEX: F Status: REG REF SPEC: [id number] YAHAIRA: 11/26/[address]: Krys Santacruz MD REQ: [id number] RECD: 11/26/16 STATUS: COMP _ SOURCE: URINE SPDESC: ORDERED: Urine Culture QUERIES: Urine Source: Clean Catch Procedure Result Reported Site Urine Culture Final 11/27/16- 1350 ML No Growth (<1,000 CFU/mL) * ML - MAIN LAB (PSC1) . END OF REPORT * ML=Testing performed at Main Lab DEPARTMENT OF PATHOLOGY, [address] [place] [address] Obey Morales M.D. Director [facility] # [id number] 8 PLEASE CALL STAT RESULTS [phone] PLEASE FAX STAT RESULTS [phone] PLEASE CALL STAT RESULTS TO [phone] PLEASE CALL STAT RESULTS [phone] PLEASE FAX STAT RESULTS [phone] SEE RESULT BELOW Name: ALEX GREENBERG : [address]: Krys Santacruz MD Acct: [id number] Unit: [id number] AGE: 75 Location: PAT Re05/07/16 SEX: F Status: REG REF SPEC: [id number] YAHAIRA: 05/07/16-0 [facility] DR: Krys Santacruz MD REQ: [id number] RECD: 05/07/16-1200 STATUS: LINDA VILLA DR: Sriram Perez DO _ SOURCE: URINE SPDESC: ORDERED: Urine Culture QUERIES: Urine Source: Clean Catch Procedure Result Reported Site Urine Culture Final 05/08/16- 1203 ML No growth of clinically significant organisms * ML - MAIN LAB (PSYCHIATRIC1) . END OF REPORT * ML=Testing performed at Main Lab DEPARTMENT OF PATHOLOGY, [address] [place] [address] Obey Morales M.D. Director [facility] # [id number] 12 --- 05/07/16 1254 --- Blood Type previously reported as: AP 13 Because ethnic data is not always readily available, this report includes an eGFR for both -Americans and non- Americans. The National Kidney Disease Education Program (NKDEP) does not endorse the use of the MDRD equation for patients that are not between the ages of 18 and 70, are , have extremes of body size, muscle mass, or nutritional status, or are non- or non-. According to the National Kidney Foundation, irrespective of diagnosis, the stage of the disease is based on the level of kidney function: Stage Description GFR(mL/min/1.73 m(2)) 1 Kidney damage with normal or decreased GFR 90 2 Kidney damage with mild decrease in GFR 60-89 3 Moderate decrease in GFR 30-59 4 Severe decrease in GFR 15-29 5 Kidney failure <15 (or dialysis) Procedures Date Code Description Status 12/09/2016 26883 TKR Total Knee Replacement Completed 12/09/2016 43993 TKR Total Knee Replacement Completed 05/18/2016 28757 TKR Total Knee Replacement Completed 05/18/2016 10368 TKR Total Knee Replacement Completed Encounters Type Date Location Provider Dx Diagnosis Office Visit 09/04/2018 [facility] Krys Santacruz, L03.115 Cellulitis of 10:30a [facility] M[facility]iselda. right lower limb S83.8x1A Sprain of other specified parts of right knee, init encntr Z96.651 Presence of right artificial knee joint M25.561 Pain in right knee M25.461 Effusion, right knee Office 05/21/2016 [facility] Sonia oRche J45.909 Unspecified Visit 10:43a Assmiguel angel bowling NP asthma, Hospitalists uncomplicated Z96.652 Presence of left artificial knee joint E78.5 Hyperlipidemia, unspecified Office Visit 05/20[facility] J45.909 Unspecified 10:42a miguel angel Moreno NP asthma, Hospitalists uncomplicated Z96.652 Presence of left artificial knee joint E78.5 Hyperlipidemia, unspecified Office Visit 05/19/2016 [facility] E78.5 Hyperlipidemia, 10:42a miguel angel Moreno NP unspecified Hospitalists J45.909 Unspecified asthma, uncomplicated Z96.652 Presence of left artificial knee joint Office Visit 05/18/2016 [facility] E78.5 Hyperlipidemia, 10:41a [facility] unspecified Hospitalists J45.909 Unspecified asthma, uncomplicated Z96.652 Presence of left artificial knee joint Office Visit 04/02/2016 2:00p [facility] Krys Santacruz, M25.561 Pain in right [facility] M[facility] knee M25.562 Pain in left knee M25.461 Effusion, right knee M25.462 Effusion, left knee M17.0 Bilateral primary osteoarthritis of knee Plan of Treatment Future Appointment(s):09/25/2018 2:00 pm - Krys Santacruz M.D. at [facility]09/12/2018 3:30 pm - Krys Santacruz M.D. at [facility]09/08/2018 - Krys Santacruz M.D.L03.115 Cellulitis of right lower limbFollow up:Follow up: 10-14 days dqfghhK16.651 Presence of right artificial knee oskyhB02.561 Pain in right kneeM25.461 Effusion, right kneeM66.261 Spontaneous rupture of extensor tendons, right lower leg
--- OUTSIDE RECORDS SUMMARY | 2018-09-12 12:52 | XMS REPORT | Continuity of Care Document ---
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 Payers Date Identification Numbers Payment Provider Subscriber Effective: 2008 Policy Number: [id number] Medicare Part B Idalia Greenberg PayID: [id number] [address] [place] [address] Expires: 2016 Policy Number: [id number] [employer] Triston Greenberg PayID: [id number] [address] [place] [address] Effective: 2010 Policy Number: [id number] [employer] Idalia Greenberg Onset: 2010 PayID: [id number] [address] [place] [address] Problems Active Problems Provider Date Climacteric arthritis of multiple sites Sriram Perez DO Onset: 08/19/2011 Intrinsic asthma without status asthmaticus Sriram Perez DO Onset: 2011 Toxic diffuse goiter with no crisis Sriram Perez DO Onset: 04/01/2011 Gastroesophageal reflux disease Sriram Perez DO Onset: 04/01/2011 Edema Sriram Perez DO Onset: 04/01/2011 Benign essential hypertension Sriram Perez DO Onset: 03/20/2014 Peptic reflux disease Sriram Perez DO Onset: 03/20/2014 Social History Type Date Description Comments Sex Unknown Education Higest level completed, Bachelor's Degree Marital Status Lives With Spouse 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 Plans To Retire 08/08. Tobacco Use Start: Unknown Never Smoked Cigarettes ETOH Use Denies alcohol use Tobacco Use Start: Unknown Patient has never smoked Smoking Status Reviewed: 04/12/18 Patient has never smoked Allergies, Adverse Reactions, Alerts Active Allergies Reaction Severity Comments Date Codeine Nausea And Dizziness 07/01/2009 Sulfa Drugs 05/08/2014 Diflucan hives- generalized 06/16/2015 Medications Active Medications SIG Qnty Indications Ordering Date Provider Ferrous Sulfate 1 by mouth every 90tabs Sriram Perez, 06/23/2017 325mg day DO Tablets Levothyroxine Sodium Take 1 Tablet By 90tabs Sriram Perez, 06/23/2017 Mouth Every Day DO 25mcg Tablets Omeprazole take 1 capsule by 90caps Sriram Perez, 05/31/2016 40mg mouth every day DO Capsules DR Skinner Handihaler inhale the 90caps Sriram Perez, 01/28/2016 contents of one DO 18mcg Capsules capsule by mouth via handihaler daily T.E.D. Below please dispense 2units R60.0 Sriram Perez, 07/18/2015 Knee/Large pair of onur DO Misc compression stockings- please fit for her Symbicort use 2 puffs twice 30.6units Sriram Perez, 04/10/2015 daily DO 80-4.5mcg/Act Aerosol Fluticasone 1 spray each 1units 381.81 Sriram Perez, 09/23/2014 Propionate nostril 1-2 times DO 50mcg/Act a day Suspension Proair HFA 2 puffs every 4 1units Sriram Perez, 05/20/2014 hours as needed DO 108(90Base) mcg/Act Aerosol Gabapentin take 1 to 2 180caps M79.609 Sriram Perez, 03/20/2014 100mg capsules by mouth DO Capsules at bedtime Atorvastatin Calcium take 1/2 tablet by 45tabs Sriram Perez, 09/10/2013 mouth once daily DO 10mg Tablets in the evening Triamcinolone apply a small 160units Sriram Perez, 05/23/2013 Acetonide amount to legs DO 0.1% Cream twice a day for 2 weeks, then as needed Furosemide Take 2 Tablets By 270tabs Sriram Perez, 08/12/2009 20mg Mouth In The DO Tablets Morning And 1 Tablet Every Night AT Bedtime as Needed For Edema Calcium-Vitamin D3 1 po qd Elisa, 07/01/2009 Allen, DO [id number] Capsules [place] 50 1 po qd Elisa, 07/01/2009 1000mg Allen, DO Capsules Biotin 1 PO qd Unknown Capsules Acidophilus 1 by mouth every Unknown Capsules day Vitamin D 1 by mouth every Unknown 2000Unit day Tablets Tylenol Arthritis as needed pain Unknown Pain 650mg Tablets ER Nabumetone take 1 tablet by 180tabs Sriram Perez, 500mg mouth twice a day DO Tablets with food History Medications Cephalexin take one capsule 21caps L03.116 Chris, 09/21/2017 - 500mg by mouth three DO Sriram 09/28/2017 Capsules times a day Ranitidine 150 1 by mouth twice a 60tabs Chris, 10/20/2016 - Maximum Strength day DO Sriram 11/16/2016 150mg Tablets Amoxicillin take 4 capsules 4caps Chris, 06/25/2016 - 500mg (2000mg) one hour DO Sriram 06/30/2016 Capsules prior to dental appointment Levofloxacin 1 by mouth daily 7tabs L03.116 Chris, 07/01/2015 - 500mg DO Sriram 07/08/2015 Tablets Prednisone 4 pills by mouth x 21tabs L50.0 Chris, 06/16/2015 - 10mg 2 days, 3 by mouth DO Sriram 06/23/2015 Tablets daily x 2 days, 2 by mouth daily x 2 days, 1 by mouth daily until gone Diflucan one tab by mouth 1tabs Chris, 06/10/2015 - 150mg times one day DO Sriram 06/15/2015 Tablets Levofloxacin 1 by mouth daily 10tabs L03.116 Chris, 05/30/2015 - 500mg DO Sriram 06/12/2015 Tablets Doxycycline Hyclate 1 by mouth twice a 20tabs L03.116 Chris, 04/29/2015 - day Sriram, DO 05/09/2015 100mg Tablets Cephalexin 1 by mouth twice a 14caps L03.113 Perez, 04/21/2015 - 500mg day for 7 days Sriram, DO 04/28/2015 Capsules Cephalexin 1 by mouth twice a 14caps L03.113 Perez, 01/01/2015 - 500mg day for 7 days Sriram, DO 01/08/2015 Capsules Atrovent HFA Use 2 puffs up to 12.9units Perez, 12/25/2014 - every 6 hours as Sriram, DO 12/08/2015 17mcg/Act Aerosol needed Meloxicam 1 tab by mouth 90tabs Perez, 03/07/2013 - 15mg daily with food Sriram, DO 04/21/2015 Tablets Ventolin HFA 2 puffs every 4-6h 1units Perez, 09/04/2012 - as needed for Sriram, DO 05/20/2014 108mcg/Act Aerosol cough or sob [facility] Vitamin D 5000 1 qd Elisa, 02/25/2012 - High-Potency Allen, DO 07/12/2014 5000Unit Capsules Omeprazole take 2 capsules by 180caps Perez, 08/30/2011 - 20mg mouth every day Sriram, DO 05/31/[address] L-Lysine 2 po qd; One In Am 60tabs Elisa, 07/01/2009 - 500mg One In PM Allen, DO 04/12/2018 Tablets Lactinex 1 po qd Elisa, 07/01/2009 - Rashmi Villa, DO 03/20/2014 Tablets Lactinex 1 po qd Elisa, 07/01/2009 - Rashmi Villa, DO 03/20/2014 Tablets Lactinex 1 po qd Elisa, 07/01/2009 - Rashmi Villa, DO 05/20/2014 Tablets Dulera 2 puff twice a day 3units Perez, - 100-5mcg/Act Sriram, DO 04/10/2015 Aerosol Montelukast Sodium 1 by mouth QHS 30tabs Unknown - 05/20/2014 10mg Tablets Spiriva Handihaler 1 puff by mouth 90caps Perez, - every d Sriram, DO 12/25/2014 18mcg Capsules Nabumetone 1 by mouth twice a 180tabs Chris, - 500mg day with food Sriram DO 01/28/2017 Tablets Meloxicam 1 by mouth every Unknown - ? Tablets day DR Santacruz 05/20/2017 Montelukast Sodium 1 by mouth every Unknown - day 09/07/2018 10mg Tablets Medications Administered in Office Medication SIG Qnty Indications Ordering Provider Date Depo Medrol 40 MG Sriram Perez, DO 07/26/2017 Injection Immunizations CPT Code Status Date Vaccine Lot # 30198 Given 04/12/2018 Prevnar 13 Pneumococal Conjugate Vaccine [id number] 63378 Given 11/25/2017 Fluzone Highdose Age 65 And Over Preservative & Antibiotic Free 66560 Given 12/12/2012 Afluria Or Fluvirin Flu Vac Intramuscular 54308 Given 08/20/2010 Zoster (Zostavax) 39113 Given 08/20/2010 Zoster (Zostavax) 58245 Given 01/19/2010 Afluria Or Fluvirin Flu Vac Intramuscular 56160 Given 07/01/2009 Pneumococcal 23 Immunization Adult Or Immunosuppressed Patient 94750 Given 07/01/2009 Tetanus And Diptheria Toxoids For Adult Use-preservative free Vital Signs Date Vital Result Comment 09/07/2018 9:44am Body Temperature 99.2 F Weight 188.00 lb Heart Rate 84 /min BP Systolic 112 mmHg BP Diastolic 64 mmHg Height 63 inches 5'3" (11/2016) O2 % BldC Oximetry 92 % BMI (Body Mass Index) 33.3 kg/m2 04/12/2018 2:51pm Weight 184.00 lb Heart Rate 68 /min BP Systolic 138 mmHg BP Diastolic 84 mmHg Respiratory Rate 18 /min Height 63 inches 5'3" (11/2016) BMI (Body Mass Index) 32.6 kg/m2 09/21/2017 1:54pm Weight 187.00 lb Heart Rate 84 /min BP Systolic 148 mmHg BP Diastolic 84 mmHg Respiratory Rate 18 /min Height 63 inches 5'3" (11/2016) BMI (Body Mass Index) 33.1 kg/m2 07/26/2017 11:50am Body Temperature 98.9 F Heart Rate 80 /min BP Systolic 124 mmHg BP Diastolic 64 mmHg Respiratory Rate 18 /min Height 63 inches 5'3" (11/2016) 06/22/2017 11:47am Weight 183.00 lb Heart Rate 80 /min BP Systolic 118 mmHg BP Diastolic 70 mmHg Respiratory Rate 18 /min Height 63 inches 5'3" (11/2016) BMI (Body Mass Index) 32.4 kg/m2 05/20/2017 11:47am Weight 179.00 lb Heart Rate 84 /min BP Systolic 128 mmHg BP Diastolic 60 mmHg Respiratory Rate 18 /min Height 63 inches 5'3" (11/2016) BMI (Body Mass Index) 31.7 kg/m2 04/04/2017 11:47am Weight 188.00 lb Heart Rate 80 /min BP Systolic 118 mmHg BP Diastolic 68 mmHg Respiratory Rate 18 /min Height 63 inches 5'3" (11/2016) BMI (Body Mass Index) 33.3 kg/m2 01/28/2017 11:32am Weight 183.00 lb Heart Rate 70 /min BP Systolic 130 mmHg BP Diastolic 70 mmHg Respiratory Rate 18 /min Height 63 inches 5'3" (11/2016) BMI (Body Mass Index) 32.4 kg/m2 12/22/2016 3:36pm Weight 183.00 lb Heart Rate 80 /min BP Systolic 118 mmHg BP Diastolic 78 mmHg Respiratory Rate 18 /min Height 63 inches 5'3" (11/2016) BMI (Body Mass Index) 32.4 kg/m2 11/16/2016 11:13am Weight 185.00 lb Heart Rate 72 /min BP Systolic 148 mmHg BP Diastolic 84 mmHg Respiratory Rate 18 /min Height 63 inches 5'3" (11/2015) BMI (Body Mass Index) 32.8 kg/m2 10/20/2016 7:55am Body Temperature 96.4 F Weight 186.38 lb Heart Rate 76 /min BP Systolic 122 mmHg BP Diastolic 68 mmHg Respiratory Rate 18 /min Height 63 inches 5'3" (11/2015) BMI (Body Mass Index) 33.0 kg/m2 08/17/2016 9:02am Weight 185.00 lb Heart Rate 90 /min BP Systolic 132 mmHg BP Diastolic 72 mmHg Respiratory Rate 18 /min Height 63 inches 5'3" (11/2015) BMI (Body Mass Index) 32.8 kg/m2 06/07/2016 10:37am Weight 180.00 lb Heart Rate 100 /min BP Systolic 116 mmHg BP Diastolic 70 mmHg Respiratory Rate 18 /min Height 63 inches 5'3" (11/2015) BMI (Body Mass Index) 31.9 kg/m2 05/05/2016 11:01am Weight 184.00 lb Heart Rate 88 /min BP Systolic 124 mmHg BP Diastolic 84 mmHg Respiratory Rate 18 /min Height 63 inches 5'3" (11/2015) BMI (Body Mass Index) 32.6 kg/m2 03/05/2016 11:38am Weight 181.00 lb Heart Rate 72 /min BP Systolic 126 mmHg BP Diastolic 54 mmHg Respiratory Rate 17 /min Height 63 inches 5'3" (11/2015) BMI (Body Mass Index) 32.1 kg/m2 01/28/2016 11:46am Weight 180.00 lb Heart Rate 76 /min BP Systolic 120 mmHg BP Diastolic 72 mmHg Respiratory Rate 18 /min Height 63 inches 5'3" (11/2015) BMI (Body Mass Index) 31.9 kg/m2 12/30/2015 11:11am Weight 181.00 lb Heart Rate 76 /min BP Systolic 132 mmHg BP Diastolic 80 mmHg Respiratory Rate 17 /min Height 63 inches 5'3" (11/2015) BMI (Body Mass Index) 32.1 kg/m2 12/08/2015 9:48am Weight 181.00 lb Heart Rate 80 /min BP Systolic 144 mmHg BP Diastolic 72 mmHg Respiratory Rate 18 /min Height 63 inches 5'3" BMI (Body Mass Index) 32.1 kg/m2 07/18/2015 1:31pm Weight 181.00 lb Heart Rate 80 /min BP Systolic 120 mmHg BP Diastolic 78 mmHg Respiratory Rate 18 /min Height 63 inches 5'3" BMI (Body Mass Index) 32.1 kg/m2 07/01/2015 11:12am Weight 181.00 lb Heart Rate 80 /min BP Systolic 138 mmHg BP Diastolic 78 mmHg Respiratory Rate 18 /min Height 63 inches 5'3" BMI (Body Mass Index) 32.1 kg/m2 06/16/2015 10:47am Weight 184.00 lb Heart Rate 98 /min BP Systolic 124 mmHg BP Diastolic 76 mmHg Respiratory Rate 18 /min Height 63 inches 5'3" O2 % BldC Oximetry 98 % BMI (Body Mass Index) 32.6 kg/m2 06/10/2015 11:28am Weight 183.00 lb Heart Rate 88 /min BP Systolic 120 mmHg BP Diastolic 70 mmHg Respiratory Rate 18 /min Height 63 inches 5'3" BMI (Body Mass Index) 32.4 kg/m2 05/30/2015 9:41am Weight 182.00 lb Heart Rate 84 /min BP Systolic 128 mmHg BP Diastolic 78 mmHg Respiratory Rate 18 /min Height 63 inches 5'3" BMI (Body Mass Index) 32.2 kg/m2 05/09/2015 10:33am Weight 181.00 lb Heart Rate 80 /min BP Systolic 142 mmHg BP Diastolic 82 mmHg Respiratory Rate 18 /min Height 63 inches 5'3" BMI (Body Mass Index) 32.1 kg/m2 04/29/2015 9:38am Weight 181.00 lb Heart Rate 90 /min BP Systolic 110 mmHg BP Diastolic 78 mmHg Respiratory Rate 18 /min Height 63 inches 5'3" BMI (Body Mass Index) 32.1 kg/m2 04/21/2015 10:47am Body Temperature 98.2 F Weight 180.00 lb Heart Rate 68 /min BP Systolic 132 mmHg BP Diastolic 74 mmHg Respiratory Rate 18 /min Height 63 inches 5'3" BMI (Body Mass Index) 31.9 kg/m2 01/01/2015 11:11am Weight 188.00 lb Heart Rate 76 /min BP Systolic 136 mmHg BP Diastolic 78 mmHg Respiratory Rate 18 /min Height 63 inches 5'3" BMI (Body Mass Index) 33.3 kg/m2 12/25/2014 11:11am Weight 188.00 lb Heart Rate 82 /min BP Systolic 138 mmHg BP Diastolic 84 mmHg Respiratory Rate 18 /min Height 63 inches 5'3" BMI (Body Mass Index) 33.3 kg/m2 11/28/2014 10:52am Weight 191.00 lb Heart Rate 80 /min BP Systolic 122 mmHg BP Diastolic 74 mmHg Respiratory Rate 18 /min Height 63 inches 5'3" BMI (Body Mass Index) 33.8 kg/m2 09/23/2014 11:12am Weight 189.00 lb Heart Rate 88 /min BP Systolic 132 mmHg BP Diastolic 84 mmHg Respiratory Rate 18 /min Height 63 inches 5'3" BMI (Body Mass Index) 33.5 kg/m2 08/20/2014 11:43am Weight 191.00 lb Heart Rate 92 /min BP Systolic 138 mmHg BP Diastolic 76 mmHg Respiratory Rate 18 /min Height 63 inches 5'3" BMI (Body Mass Index) 33.8 kg/m2 07/12/2014 11:24am Weight 192.00 lb Heart Rate 76 /min BP Systolic 142 mmHg BP Diastolic 96 mmHg Respiratory Rate 18 /min Height 63 inches 5'3" BMI (Body Mass Index) 34.0 kg/m2 06/12/2014 3:06pm Body Temperature 98.5 F Weight 193.00 lb Heart Rate 68 /min BP Systolic 134 mmHg BP Diastolic 74 mmHg Respiratory Rate 18 /min Height 63 inches 5'3" BMI (Body Mass Index) 34.2 kg/m2 05/31/2014 11:09am Weight 192.00 lb Heart Rate 80 /min BP Systolic 148 mmHg BP Diastolic 80 mmHg Respiratory Rate 18 /min Height 63 inches 5'3" BMI (Body Mass Index) 34.0 kg/m2 05/20/2014 2:46pm Weight 192.00 lb Heart Rate 90 /min BP Systolic 132 mmHg BP Diastolic 68 mmHg Respiratory Rate 17 /min Height 63 inches 5'3" BMI (Body Mass Index) 34.0 kg/m2 03/20/2014 8:42am Weight 190.00 lb Heart Rate 78 /min BP Systolic 142 mmHg BP Diastolic 86 mmHg Respiratory Rate 17 /min Height 63 inches 5'3" BMI (Body Mass Index) 33.7 kg/m2 10/18/2013 8:57am BP Systolic 140 mmHg BP Diastolic 80 mmHg 10/18/2013 8:57am Weight 184.00 lb Heart Rate 82 /min BP Systolic 150 mmHg BP Diastolic 80 mmHg Height 63 inches 5'3" O2 % BldC Oximetry 96 % 09/10/2013 8:52am Weight 192.00 lb Heart Rate 68 /min BP Systolic 126 mmHg BP Diastolic 74 mmHg Respiratory Rate 18 /min Height 63 inches 5'3" 05/23/2013 12:58pm Weight 198.00 lb Heart Rate 72 /min BP Systolic 144 mmHg BP Diastolic 84 mmHg Respiratory Rate 16 /min Height 63 inches 5'3" 03/07/2013 9:06am Weight 191.00 lb Heart Rate 88 /min BP Systolic 148 mmHg BP Diastolic 82 mmHg Respiratory Rate 18 /min 12/12/2012 9:22am Weight 194.00 lb Heart Rate 92 /min BP Systolic 138 mmHg BP Diastolic 92 mmHg Respiratory Rate 18 /min 11/14/2012 11:41am Body Temperature 98.3 F Weight 196.00 lb Heart Rate 64 /min BP Systolic 138 mmHg BP Diastolic 78 mmHg Respiratory Rate 18 /min 11/09/2012 9:40am Body Temperature 98.6 F Weight 194.00 lb Heart Rate 70 /min BP Systolic 126 mmHg BP Diastolic 70 mmHg Respiratory Rate 18 /min 09/04/2012 8:30am Weight 196.00 lb Heart Rate 64 /min BP Systolic 136 mmHg BP Diastolic 78 mmHg Respiratory Rate 18 /min 07/18/2012 11:20am Weight 194.00 lb Heart Rate 76 /min BP Systolic 144 mmHg BP Diastolic 78 mmHg Respiratory Rate 18 /min Height 63 inches 5'3" 07/14/2012 11:14am Weight 193.00 lb Heart Rate 92 /min BP Systolic 116 mmHg BP Diastolic 78 mmHg Respiratory Rate 18 /min Height 63 inches 5'3" 07/07/2012 11:08am Weight 194.00 lb Heart Rate 84 /min BP Systolic 158 mmHg BP Diastolic 76 mmHg Respiratory Rate 18 /min Height 63 inches 5'3" 07/05/2012 1:17pm Weight 195.00 lb Heart Rate 68 /min BP Systolic 148 mmHg BP Diastolic 88 mmHg Respiratory Rate 18 /min Height 63 inches 5'3" 02/25/2012 8:44am Weight 199.00 lb Heart Rate 76 /min BP Systolic 144 mmHg BP Diastolic 80 mmHg Respiratory Rate 20 /min Height 63 inches 5'3" 12/30/2011 2:23pm Body Temperature 98.7 F Weight 197.19 lb Heart Rate 90 /min BP Systolic 120 mmHg BP Diastolic 84 mmHg Respiratory Rate 17 /min Height 63 inches 5'3" Done On 08/19/11 08/19/2011 1:25pm Weight 197.00 lb Heart Rate 78 /min BP Systolic 132 mmHg BP Diastolic 86 mmHg Respiratory Rate 17 /min Height 63 inches 5'3" Done On 08/19/11 04/05/2011 10:13am Body Temperature 99.1 F Weight 204.06 lb Heart Rate 76 /min BP Systolic 130 mmHg BP Diastolic 80 mmHg Respiratory Rate 18 /min Height 63 inches 5'3" 04/01/2011 10:54am Weight 204.00 lb Up 2# Heart Rate 84 /min BP Systolic 132 mmHg L/LG BP Diastolic 84 mmHg L/LG Respiratory Rate 19 /min Height 63 inches 5'3" 03/29/2011 9:57am Weight 202.50 lb Heart Rate 82 /min BP Systolic 134 mmHg BP Diastolic 88 mmHg Respiratory Rate 18 /min Height 63 inches 5'3" 02/24/2011 3:16pm Weight 203.06 lb Heart Rate 83 /min BP Systolic 140 mmHg BP Diastolic 78 mmHg Respiratory Rate 17 /min Height 63 inches 5'3" 09/08/2010 1:26pm Weight 195.00 lb Heart Rate 80 /min BP Systolic 130 mmHg BP Diastolic 80 mmHg Respiratory Rate 18 /min Height 63 inches 5'3" 08/24/10 08/24/2010 10:21am Weight 193.00 lb Heart Rate 74 /min BP Systolic 130 mmHg BP Diastolic 76 mmHg Respiratory Rate 14 /min Height 63 inches 5'3" 06/01/2010 2:23pm Body Temperature 98.9 F Weight 192.00 lb Heart Rate 75 /min BP Systolic 150 mmHg BP Diastolic 82 mmHg Respiratory Rate 24 /min O2 % BldC Oximetry 94 % Ra 04/06/2010 3:26pm Body Temperature 98.9 F Weight 196.00 lb Heart Rate 72 /min BP Systolic 130 mmHg BP Diastolic 70 mmHg 03/20/2010 11:04am Body Temperature 99.9 F Weight 197.00 lb Heart Rate 80 /min BP Systolic 126 mmHg L/LG BP Diastolic 76 mmHg L/LG Respiratory Rate 18 /min O2 % BldC Oximetry 97 % 02/17/2010 9:02am Weight 202.00 lb Heart Rate 85 /min BP Systolic 120 mmHg BP Diastolic 78 mmHg Respiratory Rate 17 /min 02/10/2010 3:05pm Weight 201.00 lb Heart Rate 70 /min BP Systolic 140 mmHg BP Diastolic 78 mmHg 02/02/2010 9:50am Weight 197.00 lb Heart Rate 80 /min BP Systolic 144 mmHg BP Diastolic 80 mmHg 01/30/2010 1:16pm Weight 197.00 lb Heart Rate 84 /min BP Systolic 134 mmHg l arm BP Diastolic 62 mmHg l arm Respiratory Rate 18 /min 01/19/2010 11:41am Weight 200.00 lb Heart Rate 76 /min BP Systolic 128 mmHg BP Diastolic 74 mmHg 08/12/2009 8:34am Weight 206.00 lb Heart Rate 88 /min BP Systolic 126 mmHg LEFT BP Diastolic 72 mmHg LEFT Respiratory Rate 16 /min 07/01/2009 10:52am Weight 200.19 lb Heart Rate 73 /min BP Systolic 124 mmHg R Arm LG Cuff BP Diastolic 80 mmHg R Arm LG Cuff Respiratory Rate 16 /min Height 63.5 inches 5'3.50" Results Test Date Facility Test Result H/L Range Note Laboratory test finding 04/04/2018 [facility] T[facility] 3.44 uIU/mL 0.35-4.94 CBC with Auto Diff-fcmg 04/04/2018 [facility] WBC 5.3 K/uL 4.1-11.0 RBC 4.56 M/uL 4.00-5.40 Hemoglobin 13.8 gm/dL 12.0-16.0 Hematocrit 40.2 % 36.0-47.0 MCV 88.1 fL 80.0-97.0 MCH 30.2 pg 27.0-32.0 MCHC 34.3 g/dL 32.0-36.0 RDW 14.1 % 11.5-14.5 PLT Count 196 K/ul 140-400 MPV 8.8 FL 7.1-10.7 Neutrophil 68.1 % 35.0-75.0 Lymphocyte 19.0 % 16.0-52.0 Monocyte 9.0 % 2.0-10.0 Eosinophil 3.2 % 0.0-5.0 Basophil 0.7 % 0.0-4.0 Abs Neutrophils 3.6 K/uL 2.1-8.0 Abs Lymphocytes 1.0 K/uL 0.8-5.5 Abs Monocytes 0.5 K/uL 0.1-1.0 Abs Eosinophils 0.2 K/uL 0.0-0.5 Abs Basophils 0.0 K/uL 0.0-0.3 Laboratory test finding 04/04/2018 [facility] Iron, Total 79 g/dL 50-170 Basic (BMP) 04/04/2018 [facility] Sodium 140 mmol/L 135-146 1 Potassium 3.7 mmol/L 3.5-5.2 Chloride# 101 mmol/L 97-110 2 Carbon Dioxide 29 mmol/L 24-34 Glucose 97 mg/dL 70-105 BUN 14 mg/dL 6-26 Creatinine 0.8 mg/dL 0.5-1.4 Calcium 9.3 mg/dL 8.5-10.2 Non Becka Egfr >60 >60 3 Becka Egfr >60 >60 4 Anion Gap 10 mmol/L 5-15 5 Lipid Treatment 04/04/2018 [facility] Cholesterol 142 mg/dL 50-199 Triglycerides 106 mg/dL 30-200 HDL 54 mg/dL 35-85 6 Chol/ HDL Ratio 2.6 ratio Low 3.7-5.6 VLDL 21 mg/dL 2-29 LDL (Calc) 67 mg/dL 20-99 7 Alt 25 U/L 3-42 Ast 24 U/L 8-42 Laboratory test finding 09/14/2017 [facility] TSH 3.26 uIU/mL 0.35-4.94 CBC with Auto Diff-fcmg 09/14/2017 [facility] WBC 4.9 K/uL 4.1-11.0 RBC 4.21 M/uL 4.00-5.40 Hemoglobin 11.9 gm/dL Low 12.0-16.0 Hematocrit 34.8 % Low 36.0-47.0 MCV 82.9 fL 80.0-97.0 MCH 28.4 pg 27.0-32.0 MCHC 34.2 g/dL 32.0-36.0 RDW 21.6 % High 11.5-14.5 PLT Count 208 K/ul 140-400 MPV 8.5 FL 7.1-10.7 Neutrophil 70.3 % 35.0-75.0 Lymphocyte 14.6 % Low 16.0-52.0 Monocyte 8.9 % 2.0-10.0 Eosinophil 5.1 % High 0.0-5.0 Basophil 1.1 % 0.0-4.0 Abs Neutrophils 3.5 K/uL 2.1-8.0 Abs Lymphocytes 0.7 K/uL Low 0.8-5.5 Abs Monocytes 0.4 K/uL 0.1-1.0 Abs Eosinophils 0.3 K/uL 0.0-0.5 Abs Basophils 0.1 K/uL 0.0-0.3 Laboratory test finding 09/14/2017 [facility] Iron, Total 42 g/dL Low 50- 170 Basic (BMP) 09/14/2017 [facility] Sodium 136 mmol/L 135-146 8 Potassium 4.1 mmol/L 3.5-5.2 Chloride# 100 mmol/L 97-110 9 Carbon Dioxide 27 mmol/L 24-34 Glucose 97 mg/dL 70-105 BUN 15 mg/dL 6-26 Creatinine 0.8 mg/dL 0.5-1.4 Calcium 9.3 mg/dL 8.5-10.2 Non Becka Egfr >60 >60 10 Becka Egfr >60 >60 11 Anion Gap 9 mmol/L 5-15 12 Lipid Treatment 09/14/2017 [facility] Cholesterol 146 mg/dL 50-199 Triglycerides 65 mg/dL 30-200 HDL 60 mg/dL 35-85 13 Chol/ HDL Ratio 2.4 ratio Low 3.7-5.6 VLDL 13 mg/dL 2-29 LDL (Calc) 73 mg/dL 20-99 14 Alt 22 U/L 3-42 Ast 23 U/L 8-42 Laboratory test finding 06/22/2017 [facility] TSH 5.62 uIU/mL High 0.35- 4.94 Vitamin B12 351 pg/mL 180-914 Comprehensive Met Panel-[facility]CMG 06/22/2017 [facility] Sodium 139 mmol/L 135- 146 15 Potassium 4.4 mmol/L 3.5-5.2 Chloride# 101 mmol/L 97-110 16 Carbon Dioxide 31 mmol/L 24-34 Glucose 94 mg/dL 70-105 BUN 20 mg/dL 6-26 Creatinine 0.8 mg/dL 0.5-1.4 Calcium 9.6 mg/dL 8.5-10.2 Total Protein 6.9 g/dL 6.0-8.0 Albumin 4.7 g/dL 3.6-4.9 Globulin 2.2 g/dL 2.0-3.5 A/G Ratio 2.1 Ratio 1.0-2.2 Total Bilirubin 0.3 mg/dL 0.1-1.3 Alkaline Phosphatase 70 U/L 24-140 Alt 25 U/L 3-42 Ast 25 U/L 8-42 Becka Egfr >60 >60 17 Non Becka Egfr >60 >60 18 Anion Gap 7 mmol/L 5-15 19 CBC with Auto Diff-fcmg 06/22/2017 [facility] WBC 7.1 K/uL 4.1-11.0 RBC 4.18 M/uL 4.00-5.40 Hemoglobin 10.3 gm/dL Low 12.0-16.0 Hematocrit 31.1 % Low 36.0-47.0 MCV 74.5 fL Low 80.0-97.0 MCH 24.5 pg Low 27.0-32.0 MCHC 33.0 g/dL 32.0-36.0 RDW 18.3 % High 11.5-14.5 PLT Count 265 K/ul 140-400 MPV 8.7 FL 7.1-10.7 Neutrophil 70.9 % 35.0-75.0 Lymphocyte 15.0 % Low 16.0-52.0 Monocyte 10.4 % High 2.0-10.0 Eosinophil 3.0 % 0.0-5.0 Basophil 0.7 % 0.0-4.0 Abs Neutrophils 5.1 K/uL 2.1-8.0 Abs Lymphocytes 1.1 K/uL 0.8-5.5 Abs Monocytes 0.7 K/uL 0.1-1.0 Abs Eosinophils 0.2 K/uL 0.0-0.5 Abs Basophils 0.1 K/uL 0.0-0.3 Basic (BMP) 11/24/2016 [facility] Sodium 133 mmol/L Low 135-146 20 Potassium 4.1 mmol/L 3.5-5.2 Chloride# 98 mmol/L 97-110 21 Carbon Dioxide 27 mmol/L 24-34 Glucose 87 mg/dL 70-105 BUN 18 mg/dL 6-26 Creatinine 0.8 mg/dL 0.5-1.4 Calcium 9.3 mg/dL 8.5-10.2 Non Becka Egfr >60 >60 22 Becka Egfr >60 >60 23 Anion Gap 8 mmol/L 7-16 24 Laboratory test finding 11/24/2016 [facility] Magnesium 2.1 mg/dL 1.5-2.7 CBC With Auto Diff 11/24/2016 [facility] WBC 5.3 K/uL 4.1-11.0 RBC 4.38 M/uL 4.00-5.40 Hemoglobin 11.5 gm/dL Low 12.0-16.0 Hematocrit 34.6 % Low 36.0-47.0 MCV 79.0 fL Low 80.0-97.0 MCH 26.3 pg Low 27.0-32.0 MCHC 33.3 g/dL 32.0-36.0 RDW 19.5 % High 11.5-14.5 PLT Count 211 K/ul 140-400 MPV 8.8 FL 7.1-10.7 Neutrophil 65.0 % 35.0-75.0 Lymphocyte 19.8 % 16.0-52.0 Monocyte 10.7 % High 2.0-10.0 Eosinophil 3.6 % 0.0-5.0 Basophil 0.9 % 0.0-4.0 Abs Neutrophils 3.5 K/uL 2.1-8.0 Abs Lymphocytes 1.1 K/uL 0.8-5.5 Abs Monocytes 0.6 K/uL 0.1-1.0 Abs Eosinophils 0.2 K/uL 0.0-0.5 Abs Basophils 0.0 K/uL 0.0-0.3 Laboratory test finding 11/24/2016 [facility] TSH 3.92 uIU/mL 0.35-4.94 Lipid Treatment 11/24/2016 [facility] Cholesterol 132 mg/dL 50-199 Triglycerides 99 mg/dL 30-200 HDL 54 mg/dL 35-85 25 Chol/ HDL Ratio 2.4 ratio Low 3.7-5.6 VLDL 20 mg/dL 2-29 LDL (Calc) 58 mg/dL 20-99 26 Alt 21 U/L 3-42 Ast 22 U/L 8-42 Laboratory test finding 05/31/2016 [facility] TSH 1.37 uIU/mL 0.35-4.94 Comprehensive Metabolic (CMP) 05/31/2016 [facility] Sodium 140 mmol/L 135- 146 27 Potassium 4.0 mmol/L 3.5-5.2 Chloride# 101 mmol/L 97-110 28 Carbon Dioxide 29 mmol/L 24-34 Glucose 92 mg/dL 70-105 BUN 14 mg/dL 6-26 Creatinine 0.7 mg/dL 0.5-1.4 Calcium 9.0 mg/dL 8.5-10.2 Total Protein 6.4 g/dL 6.0-8.0 Albumin 4.1 g/dL 3.6-4.9 Globulin 2.3 g/dL 2.0-3.5 A/G Ratio 1.8 Ratio 1.0-2.2 Total Bilirubin 0.5 mg/dL 0.1-1.3 Alkaline Phosphatase 63 U/L 24-140 Alt 14 U/L 3-42 Ast 14 U/L 8-42 Becka Egfr >60 >60 29 Non Becka Egfr >60 >60 30 Anion Gap 14 mmol/L 7-16 31 CBC With Auto Diff 05/31/2016 [facility] WBC 7.9 K/uL 4.1-11.0 RBC 3.63 M/uL Low 4.00-5.40 Hemoglobin 10.6 gm/dL Low 12.0-16.0 Hematocrit 31.2 % Low 36.0-47.0 MCV 86.0 fL 80.0-97.0 MCH 29.1 pg 27.0-32.0 MCHC 33.9 g/dL 32.0-36.0 RDW 15.6 % High 11.5-14.5 PLT Count 300 K/ul 140-400 Neutrophil 76.6 % High 35.0-75.0 Lymphocyte 11.6 % Low 16.0-52.0 Monocyte 8.4 % 2.0-10.0 Eosinophil 2.5 % 0.0-5.0 Basophil 0.9 % 0.0-4.0 Abs Neutrophils 6.0 K/uL 2.1-8.0 Abs Lymphocytes 0.9 K/uL 0.8-5.5 Abs Monocytes 0.7 K/uL 0.1-1.0 Abs Eosinophils 0.2 K/uL 0.0-0.5 Abs Basophils 0.1 K/uL 0.0-0.3 Basic (BMP) 12/02/2015 [facility] Sodium 137 mmol/L 134-142 32 Potassium 4.0 mmol/L 3.5-5.2 Chloride 102 mmol/L 97-109 Carbon Dioxide 28 mmol/L 24-34 Glucose 81 mg/dL 70-105 BUN 22 mg/dL 6-26 Creatinine 0.8 mg/dL 0.5-1.4 Calcium 9.2 mg/dL 8.5-10.2 Anion Gap 11 mmol/L 6-14 Non Becka Egfr >60 >60 33 Becka Egfr >60 >60 34 Laboratory test finding 12/02/2015 [facility] TSH 7.39 uIU/mL High 0.35- 4.94 Lipid Treatment 12/02/2015 [facility] Cholesterol 133 mg/dL 50-199 Triglycerides 72 mg/dL 30-200 HDL 53 mg/dL 35-85 35 Chol/ HDL Ratio 2.5 ratio Low 3.7-5.6 VLDL 14 mg/dL 2-29 LDL (Calc) 66 mg/dL 20-99 36 Alt 18 U/L 3-42 Ast 19 U/L 8-42 CBC With Auto Diff 12/02/2015 [facility] WBC 5.0 K/uL 4.1-11.0 RBC 4.17 M/uL 4.00-5.40 Hemoglobin 12.2 gm/dL 12.0-16.0 Hematocrit 35.9 % Low 36.0-47.0 MCV 86.2 fL 80.0-97.0 MCH 29.3 pg 27.0-32.0 MCHC 34.0 g/dL 32.0-36.0 RDW 15.4 % High 11.5-14.5 PLT Count 196 K/ul 140-400 Neutrophil 68.0 % 35.0-75.0 Lymphocyte 18.6 % 16.0-52.0 Monocyte 8.6 % 2.0-10.0 Eosinophil 4.1 % 0.0-5.0 Basophil 0.7 % 0.0-4.0 Abs Neutrophils 3.4 K/uL 2.1-8.0 Abs Lymphocytes 0.9 K/uL 0.8-5.5 Abs Monocytes 0.4 K/uL 0.1-1.0 Abs Eosinophils 0.2 K/uL 0.0-0.5 Abs Basophils 0.0 K/uL 0.0-0.3 Laboratory test finding 04/29/2015 [facility] TSH 4.11 uIU/mL 0.35-4.94 Comprehensive Metabolic (CMP) 04/29/2015 [facility] Sodium 133 mmol/L Low 134-142 Potassium 4.4 mmol/L 3.5-5.2 Chloride 99 mmol/L 97-109 Carbon Dioxide 26 mmol/L 24-34 Glucose 96 mg/dL 70-105 BUN 14 mg/dL 6-26 Creatinine 0.8 mg/dL 0.5-1.4 Calcium 9.1 mg/dL 8.5-10.2 Total Protein 6.7 g/dL 6.0-8.0 Albumin 4.1 g/dL 3.6-4.9 Globulin 2.6 g/dL 2.0-3.5 A/G Ratio 1.6 Ratio 1.0-2.2 Total Bilirubin 0.5 mg/dL 0.1-1.3 Alkaline Phosphatase 68 U/L 24-140 Alt 16 U/L 3-42 Ast 19 U/L 8-42 Anion Gap 12 mmol/L 6-14 Becka Egfr >60 >60 37 Non Becka Egfr >60 >60 38 CBC With Auto Diff 04/29/2015 [facility] WBC 6.8 K/uL 4.1-11.0 RBC 3.85 M/uL Low 4.00-5.40 Hemoglobin 11.4 gm/dL Low 12.0-16.0 Hematocrit 34.0 % Low 36.0-47.0 MCV 88.3 fL 80.0-97.0 MCH 29.5 pg 27.0-32.0 MCHC 33.4 g/dL 32.0-36.0 RDW 16.4 % High 11.5-14.5 PLT Count 247 K/ul 140-400 Neutrophil 79.2 % High 35.0-75.0 Lymphocyte 8.9 % Low 16.0-52.0 Monocyte 9.1 % 2.0-10.0 Eosinophil 2.1 % 0.0-5.0 Basophil 0.7 % 0.0-4.0 Abs Neutrophils 5.4 K/uL 2.1-8.0 Abs Lymphocytes 0.6 K/uL Low 0.8-5.5 Abmon 0.6 K/uL 0.1-1.0 Abs Eosinophils 0.1 K/uL 0.0-0.5 Abs Basophils 0.0 K/uL 0.0-0.3 [facility] 39 finding Laboratory test 11/21/2014 [facility] TSH 4.90 uIU/mL 0.35-4.94 finding Lipid Treatment 11/21/2014 [facility] Cholesterol 141 mg/dL 50-199 Triglycerides 61 mg/dL 30-200 HDL 66 mg/dL 35-85 40 Chol/ HDL Ratio 2.1 ratio Low 3.7-5.6 VLDL 12 mg/dL 2-29 LDL (Calc) 63 mg/dL 20-99 41 Alt 27 U/L 3-42 Ast 27 U/L 8-42 Basic (BMP) 11/21/2014 [facility] Sodium 135 mmol/L 134-142 Potassium 3.8 mmol/L 3.5-5.2 Chloride 95 Results verif <SEE NOTE> mmol/L Low 97-109 42 Carbon Dioxide 29 mmol/L 24-34 Glucose 85 mg/dL 70-105 BUN 17 mg/dL 6-26 Creatinine 0.7 mg/dL 0.5-1.4 Calcium 9.2 mg/dL 8.5-10.2 Anion Gap 15 mmol/L High 6-14 Non Becka Egfr >60 >60 43 Becka Egfr >60 >60 44 CBC With Auto Diff 11/21/2014 [facility] WBC 5.3 K/uL 4.1-11.0 RBC 4.36 M/uL 4.00-5.40 Hemoglobin 13.0 gm/dL 12.0-16.0 Hematocrit 38.6 % 36.0-47.0 MCV 88.6 fL 80.0-97.0 MCH 29.8 pg 27.0-32.0 MCHC 33.6 g/dL 32.0-36.0 RDW 15.3 % High 11.5-14.5 PLT Count 216 K/ul 140-400 Neutrophil 74.8 % 35.0-75.0 Lymphocyte 14.3 % Low 16.0-52.0 Monocyte 8.4 % 2.0-10.0 Eosinophil 1.8 % 0.0-5.0 Basophil 0.7 % 0.0-4.0 Abs Neutrophils 3.9 K/uL 2.1-8.0 Abs Lymphocytes 0.8 K/uL 0.8-5.5 Abmon 0.4 K/uL 0.1-1.0 Abs Eosinophils 0.1 K/uL 0.0-0.5 Abs Basophils 0.0 K/uL 0.0-0.3 LDL Cholesterol 03/13/2014 [facility] Cholesterol 129 mg/ dL < 200 45 Profile (315)- - Triglycerides 55 mg/dL < 150 46 HDL Cholesterol 71 mg/dL > 40 47 LDL-Cholesterol 47 mg/dL < 100 48 Laboratory test finding 03/13/2014 [facility] Sgot/Ast 26 U/L 15-37 (315)- - SGPT/Alt 36 U/L 12-78 Thyroid Stim Hormone 4.17 uIU/mL High 0.36-3.74 Laboratory test finding 09/04/2013 N2N/CCD Import % Baso. 1.1 % 0.0-2.0 % Eos. 2.4 % 0.0-4.0 % Lymph 17 % Low 20-44 % [place] 8.6 % 2.0-10.0 % Rajan 71 % High 50-70 Absolute Baso. 0.1 K/ul 0.0-0.3 Absolute Eos. 0.1 K/ul 0.0-0.5 Absolute Lymph. 0.9 K/ul 0.8-4.8 Absolute [place]. 0.5 K/ul 0.1-1.0 Absolute Rajan. 3.82 K/ul 2.05-7.63 Alt 30.0 U/L 9.0-52.0 Ast 28.0 U/L 14.0-36.0 BNP 76.0 pg/mL <325.0 49 BUN 17.0 mg/dL 7.0-18.0 BUN/Creat Ratio 21.3 ratio High 12.0-20.0 Calcium 10.0 mg/dL 8.7-10.5 Chloride 100.0 mmol/L 98.0-107.0 Co2 23.0 mmol/L 22.0-30.0 Creatinine-Serum 0.8 mg/dL 0.7-1.2 Glucose 99.0 mg/dL 75.0-110.0 HCT 37.5 % 37.0-51.0 HGB 13.1 Gm/dl 12.0-16.0 MCH 30.4 pg 26.0-32.0 MCHC 35.0 g/dL 31.0-36.0 MCV 86.8 Fl 80.0-97.0 MPV 6.5 fL 6.0-10.0 PLT 241 K/ul 140-440 Potasium 4.5 mmol/L 3.6-5.0 RBC 4.3 M/ul 4.2-6.3 RDW 13.0 % 11.5-14.5 Sodium 134.0 mmil/L Low 137.0-145.0 TSH 2.45 uIU/ml 0.50-6.00 WBC 5.4 K/ul 4.1-10.9 eGFR 75.4 Lipid Panel 09/04/2013 [facility]N[employer] Import Chol/HDL Ratio 3.3 ratio Cholesterol 204.0 mg/dL High 50.0-199.0 HDL 62.0 mg/dL 29.0-86.0 LDL, Calculated 128.6 mg/dL 20.0-129.0 Triglycerides 67.0 mg/dL 30.0-249.0 vLDL 13.4 ng/dL Laboratory test 05/23/2013 [facility] Import Nikki species Negative [ Negative] finding Gardnerella vaginalis Negative [Negative] Trichomonas vaginalis Negative [Negative] Laboratory test finding 11/14/2012 [facility] Import % Baso. 1.0 % 0.0-2.0 % Eos. 3.0 % 0.0-4.0 % Lymph 14 % Low 20-44 % [place] 8.4 % 2.0-10.0 % Rajan 74 % High 50-70 Absolute Baso. 0.1 K/ul 0.0-0.3 Absolute Eos. 0.2 K/ul 0.0-0.5 Absolute Lymph. 1.0 K/ul 0.8-4.8 Absolute [place]. 0.6 K/ul 0.1-1.0 Absolute Rajan. 5.59 K/ul 2.05-7.63 BUN 16.0 mg/dL 7.0-18.0 BUN/Creat Ratio 20.0 ratio 12.0-20.0 Calcium 9.7 mg/dL 8.7-10.5 Chloride 100.0 mmol/L 98.0-107.0 Co2 25.0 mmol/L 22.0-30.0 Creatinine-Serum 0.8 mg/dL 0.7-1.2 Glucose 95.0 mg/dL 75.0-110.0 HCT 39.5 % 37.0-51.0 HGB 12.5 Gm/dl 12.0-16.0 MCH 27.7 pg 26.0-32.0 MCHC 31.6 g/dL 31.0-36.0 MCV 87.7 Fl 80.0-97.0 MPV 7.5 fL 6.0-10.0 PLT 253 K/ul 140-440 Potasium 4.1 mmol/L 3.6-5.0 RBC 4.5 M/ul 4.2-6.3 RDW 12.6 % 11.5-14.5 Sodium 135.0 mmil/L Low 137.0-145.0 WBC 7.5 K/ul 4.1-10.9 eGFR 75.4 Differential-WBC 08/28/2012 N2N/CCD Import Band% 2 % 0-8 Eosinophil% 1 % 0-5 Lymph% 15 % Low 17-56 Monocyte% 5 % 0-10 Neutrophils% 77 % High 33-73 Platelet Estimate Normal RBC Morphology Normal Total Cells Counted 100 #CELLS Laboratory test finding 08/28/2012 N2N/CCD Import % Baso. 1.0 % 0.0-2.0 % Eos. 3.2 % 0.0-4.0 % Lymph 17 % Low 20-44 % [place] 8.3 % 2.0-10.0 % Rajan 71 % High 50-70 A/G Ratio 1.8 ratio 1.6-2.2 Absolute Baso. 0.1 K/ul 0.0-0.3 Absolute Eos. 0.2 K/ul 0.0-0.5 Absolute Lymph. 1.0 K/ul 0.8-4.8 Absolute [place]. 0.5 K/ul 0.1-1.0 Absolute Rajan. 4.03 K/ul 2.05-7.63 Albumin 4.4 g/dL 3.5-5.0 Alk. Phos. 71.0 U/L 30.0-126.0 Alt 33.0 U/L 9.0-52.0 Anion Gap 14.0 mmol/L 10.0-20.0 Ast 28.0 U/L 14.0-36.0 BUN 13.0 mg/dL 7.0-18.0 BUN/Creat Ratio 16.3 ratio 12.0-20.0 Calcium 9.5 mg/dL 8.7-10.5 Chloride 103.0 mmol/L 98.0-107.0 Co2 22.0 mmol/L 22.0-30.0 Creatinine-Serum 0.8 mg/dL 0.7-1.2 Globulin 2.4 g/dL Low 2.7-4.3 Glucose 100.0 mg/dL 75.0-110.0 HCT 39.9 % 37.0-51.0 HGB 13.7 Gm/dl 12.0-16.0 MCH 30.1 pg 26.0-32.0 MCHC 34.4 g/dL 31.0-36.0 MCV 87.5 Fl 80.0-97.0 MPV 8.0 fL 6.0-10.0 PLT 230 K/ul 140-440 Potasium 4.2 mmol/L 3.6-5.0 RBC 4.6 M/ul 4.2-6.3 RDW 12.3 % 11.5-14.5 Sodium 139.0 mmil/L 137.0-145.0 TSH 4.20 uIU/ml 0.50-6.00 Total Bilirubin 0.4 mg/dL 0.2-1.3 Total Protein 6.8 g/dL 6.3-8.2 WBC 5.7 K/ul 4.1-10.9 50 eGFR 79.6 mi/minper1.73 51 Lipid Panel 08/28/2012 N2N/[facility] Import Chol/HDL Ratio 3.4 ratio Cholesterol 185.0 mg/dL 50.0-199.0 HDL 54.0 mg/dL 29.0-86.0 LDL, Calculated 109.8 mg/dL 20.0-129.0 Triglycerides 106.0 mg/dL 30.0-249.0 vLDL 21.2 ng/dL Laboratory test finding 08/28/2012 N2N/CCD Import Magnesium 2.1 mg/dL 1.7-2.3 52 Laboratory test finding 08/28/2012 N2N/CCD Import % Baso. 1.0 % 0.0-2.0 % Eos. 3.2 % 0.0-4.0 % Lymph 17 % Low 20-44 % [place] 8.3 % 2.0-10.0 % Rajan 71 % High 50-70 A/G Ratio 1.8 ratio 1.6-2.2 Absolute Baso. 0.1 K/ul 0.0-0.3 Absolute Eos. 0.2 K/ul 0.0-0.5 Absolute Lymph. 1.0 K/ul 0.8-4.8 Absolute [place]. 0.5 K/ul 0.1-1.0 Absolute Rajan. 4.03 K/ul 2.05-7.63 Albumin 4.4 g/dL 3.5-5.0 Alk. Phos. 71.0 U/L 30.0-126.0 Alt 33.0 U/L 9.0-52.0 Anion Gap 14.0 mmol/L 10.0-20.0 Ast 28.0 U/L 14.0-36.0 BUN 13.0 mg/dL 7.0-18.0 BUN/Creat Ratio 16.3 ratio 12.0-20.0 Calcium 9.5 mg/dL 8.7-10.5 Chloride 103.0 mmol/L 98.0-107.0 Co2 22.0 mmol/L 22.0-30.0 Creatinine-Serum 0.8 mg/dL 0.7-1.2 Globulin 2.4 g/dL Low 2.7-4.3 Glucose 100.0 mg/dL 75.0-110.0 HCT 39.9 % 37.0-51.0 HGB 13.7 Gm/dl 12.0-16.0 MCH 30.1 pg 26.0-32.0 MCHC 34.4 g/dL 31.0-36.0 MCV 87.5 Fl 80.0-97.0 MPV 8.0 fL 6.0-10.0 PLT 230 K/ul 140-440 Potasium 4.2 mmol/L 3.6-5.0 RBC 4.6 M/ul 4.2-6.3 RDW 12.3 % 11.5-14.5 Sodium 139.0 mmil/L 137.0-145.0 TSH 4.20 uIU/ml 0.50-6.00 Total Bilirubin 0.4 mg/dL 0.2-1.3 Total Protein 6.8 g/dL 6.3-8.2 WBC 5.7 K/ul 4.1-10.9 53 eGFR 79.6 mi/minper1.73 54 Lipid Panel 08/28/2012 N2N/[facility] Import Chol/HDL Ratio 3.4 ratio Cholesterol 185.0 mg/dL 50.0-199.0 HDL 54.0 mg/dL 29.0-86.0 LDL, Calculated 109.8 mg/dL 20.0-129.0 Triglycerides 106.0 mg/dL 30.0-249.0 vLDL 21.2 ng/dL Laboratory test 08/28/2012 N2N/CCD Import Magnesium 2.1 mg/dL 1.7-2.3 55 finding Laboratory test 02/25/2012 N2N/CCD Import TSH 4.12 uIU/ml 0.50-6.00 finding Laboratory test 10/26/2011 N2N/CCD Import Polyp Colon See Note 56 finding And/Or Rectum Laboratory test 09/22/2011 N2N/CCD Import Ferritin 38.7 ng/mL 3-105 finding Folic Acid 47.2 ng/mL High 6.0-15.4 57 Serum Iron 71 g/dL 25-156 58 Thyroxine (T4) 10.9 g/dL 5.3-14.8 Triiodothyronine,Free 2.88 pg/mL 1.95-4.58 Vitamin D,25-Hydroxy 38.9 ng/mL 30.0-100.0 59 A/G Ratio 1.4 1.0-2.2 Absolute Basophils 0.068 K/ul 0.0-0.3 Absolute Eosinophils 0.175 K/ul 0.0-0.5 Absolute Lymphocytes 0.984 K/ul 0.8-4.8 Absolute Monocytes 0.453 K/ul 0.1-1.0 Absolute Neutrophils 4.12 K/ul 2.05-7.63 Albumin 4.1 g/dL 3.5-5.0 Alkaline Phosphatase 91 U/L 30-126 Alt 46 U/L 9-52 Ast 41 U/L High 14-36 BUN 14 mg/dL 7-18 BUN/CR Ratio 20.0 Ratio 12-20 Basophil 1.2 % 0-2 Calcium 9.1 mg/dL 8.7-10.5 Carbon Dioxide 25 mmol/L 22-30 Chloride 102 mmol/L 98-107 Creatinine, Serum 0.7 mg/dL 0.7-1.2 Eosinophil 3.0 % 0-4 Globulin 3.0 g/dL 2.7-4.3 Glucose 98 mg/dL 65-105 Hematocrit 38.0 % 37.0-51.0 Hemoglobin 13.1 GM/dl 12.0-16.0 Lymphocytes 17.0 % Low 20-44 MCH 29.5 pg 26.0-32.0 MCHC 34.6 g/dL 31.0-36.0 MCV 85 FL 80-97 Monocytes 7.8 % 2-10.0 Neutrophils 71.1 % High 50-70 Platelet Count 239 K/ul 140-440 Potassium 3.9 mmol/L 3.6-5.0 RBC 4.46 M/ul 4.2-6.3 RDW 12.6 % 11.5-14.5 Sodium 138 mmol/L 137-145 TSH 3.392 uIU/ml 0.50-6.00 Total Bilirubin 0.5 mg/dL 0.2-1.3 Total Protein 7.1 g/dL 6.3-8.2 WBC 5.8 K/ul 4.1-10.9 Lipid Panel 09/22/2011 N2N/[facility]D Import Chol/HDL Ratio 2.6 60 Cholesterol 176 mg/dL 50-199 HDL Cholesterol 66 mg/dL 29-86 LDL 94 mg/dL 20-129 Triglycerides 81 mg/dL 30-249 VLDL Cholesterol 16 mg/dL Laboratory test finding 09/22/2011 N2N/CCD Import A/G Ratio 1.4 1.0-2.2 Absolute Basophils 0.068 K/ul 0.0-0.3 Absolute Eosinophils 0.175 K/ul 0.0-0.5 Absolute Lymphocytes 0.984 K/ul 0.8-4.8 Absolute Monocytes 0.453 K/ul 0.1-1.0 Absolute Neutrophils 4.12 K/ul 2.05-7.63 Albumin 4.1 g/dL 3.5-5.0 Alkaline Phosphatase 91 U/L 30-126 Alt 46 U/L 9-52 Ast 41 U/L High 14-36 BUN 14 mg/dL 7-18 BUN/CR Ratio 20.0 Ratio 12-20 Basophil 1.2 % 0-2 Calcium 9.1 mg/dL 8.7-10.5 Carbon Dioxide 25 mmol/L 22-30 Chloride 102 mmol/L 98-107 Creatinine, Serum 0.7 mg/dL 0.7-1.2 Eosinophil 3.0 % 0-4 Globulin 3.0 g/dL 2.7-4.3 Glucose 98 mg/dL 65-105 Hematocrit 38.0 % 37.0-51.0 Hemoglobin 13.1 GM/dl 12.0-16.0 Lymphocytes 17.0 % Low 20-44 MCH 29.5 pg 26.0-32.0 MCHC 34.6 g/dL 31.0-36.0 MCV 85 FL 80-97 Monocytes 7.8 % 2-10.0 Neutrophils 71.1 % High 50-70 Platelet Count 239 K/ul 140-440 Potassium 3.9 mmol/L 3.6-5.0 RBC 4.46 M/ul 4.2-6.3 RDW 12.6 % 11.5-14.5 Sodium 138 mmol/L 137-145 TSH 3.392 uIU/ml 0.50-6.00 Total Bilirubin 0.5 mg/dL 0.2-1.3 Total Protein 7.1 g/dL 6.3-8.2 WBC 5.8 K/ul 4.1-10.9 Lipid Panel 09/22/2011 N2N/CCD Import Chol/HDL Ratio 2.6 61 Cholesterol 176 mg/dL 50-199 HDL Cholesterol 66 mg/dL 29-86 LDL 94 mg/dL 20-129 Triglycerides 81 mg/dL 30-249 VLDL Cholesterol 16 mg/dL Laboratory test finding 04/01/2011 N2N/CCD Import Anion Gap 16 mmol/L 10 -20 62 BUN 16 mg/dL 7-18 BUN/CR Ratio 23.4 Ratio High 12-20 Calcium 9.3 mg/dL 8.7-10.5 Carbon Dioxide 27 mmol/L 22-30 Chloride 98 mmol/L 98-107 Creatinine, Serum 0.7 mg/dL 0.7-1.2 Glucose 93 mg/dL 65-105 Potassium 4.1 mmol/L 3.6-5.0 Sodium 138 mmol/L 137-145 Laboratory test finding 09/08/2010 N2N/CCD Import Cytology Pap See Note 63 Laboratory test finding 04/06/2010 N2N/CCD Import Alb/Glob 1.2 Albumin 3.7 g/dL 3.5-5.0 Alkaline Phosphatase 86 U/L 50-136 Anion Gap 9 mEq/L 8-16 BUN 11 mg/dL 5-23 BUN/Creat 15.7 Bas% 0.9 % 0.0-1.1 Baso # 0.05 K/uL 0.0-0.1 Bilirubin,Total 0.2 mg/dL 0.2-1.2 Calcium 8.9 mg/dL 8.5-10.1 Carbon Dioxide 31 mEq/L 21-32 Chloride 99 mEq/L 98-107 Creatinine 0.7 mg/dL 0.5-1.4 Eo% 4.6 % 0.0-6.6 Eos # 0.25 K/uL 0.0-0.5 Globulin 3.2 gm/dL 1.9-4.3 Glom Filtration Rate, Estimate >60 mL/min >60 Glucose 100 mg/dL 76-115 Hematocrit 36.3 % 36.0-46.1 Hemoglobin 12.0 gm/dL 11.6-15.8 If >60 mL/min >60 64 Lymph # 1.03 K/uL 0.8-3.4 Lymph % 18.9 % 17.0-46.1 Mean Cell Volume 87.7 fl 80.9-99.0 Mean Corpuscular HGB 29.0 pg 25.9-32.7 Mean Corpuscular HGB Conc 33.1 g/dL 30.8-34.3 Mean Platelet Volume 10.5 fL 8.9-12.4 Oldham # 0.60 K/uL 0.3-0.9 [place]ham % 11.0 % 4.3-13.2 Neut# 3.51 K/uL 1.0-7.0 Neut% 64.6 % 40.4-72.8 Platelet Count 300 K/uL 155-360 Potassium 4.0 mEq/L 3.5-5.1 Red Blood Count 4.14 M/uL 3.90-5.40 Red Cell Distri Width %CV 13.6 % 11.7-14.4 Red Cell Distri Width SD 42.6 fl 3-47 SGPT/Alt 46 U/L 30-65 Sgot/Ast 29 U/L 16-40 Sodium 135 mEq/L Low 136-145 Total Protein 6.9 g/dL 6.3-8.0 White Blood Count 5.4 K/uL 3.1-10.7 Laboratory test finding 03/16/2010 N2N/[facility]D Import Free T4 1.10 ng/dL 0.75-1.54 65 TSH 0.239 uIU/ml Low 0.50-6.00 Triiodothyronine,Free 2.03 pg/mL 1.45-3.48 66 Triiodothyronine,Total 101 ng/dL 71-180 67 Laboratory test finding 02/10/2010 N2N/CCD Import Alb/Glob 1.4 68 Albumin 3.9 g/dL 3.5-5.0 Alkaline Phosphatase 86 U/L 50-136 Anion Gap 21 mEq/L High 8-16 BUN 19 mg/dL 5-23 BUN/Creat 17.2 Bilirubin,Total 0.2 mg/dL 0.2-1.2 Calcium 8.4 mg/dL Low 8.5-10.1 Carbon Dioxide 22 mEq/L 21-32 Chloride 100 mEq/L 98-107 Creatinine 1.1 mg/dL 0.5-1.4 Globulin 2.8 gm/dL 1.9-4.3 Glom Filtration Rate, Estimate 53 mL/min >60 Glucose 110 mg/dL 76-115 If >60 mL/min >60 69 Potassium 3.7 mEq/L 3.5-5.1 SGPT/Alt 53 U/L 30-65 Sgot/Ast 36 U/L 16-40 Sodium 139 mEq/L 136-145 Total Protein 6.7 g/dL 6.3-8.0 Comprehensive Metabolic Panel See Note 70 Ferritin 31.0 ng/mL 3-105 71 Serum Iron 36 g/dL 25-156 72 Absolute Basophils 0.070 K/ul 0.0-0.3 Absolute Eosinophils 0.265 K/ul 0.0-0.5 Absolute Lymphocytes 1.07 K/ul 0.8-4.8 Absolute Monocytes 0.577 K/ul 0.1-1.0 Absolute Neutrophils 3.72 K/ul 2.05-7.63 Basophil 1.2 % 0-2 Eosinophil 4.7 % High 0-4 Hematocrit 34.9 % Low 37.0-51.0 Hemoglobin 12.1 GM/dl 12.0-16.0 Lymphocytes 18.8 % Low 20-44 MCH 30.5 pg 26.0-32.0 MCHC 34.6 g/dL 31.0-36.0 MCV 88 FL 80-97 Monocytes 10.1 % High 2-10.0 Neutrophils 65.2 % 50-70 Platelet Count 245 K/ul 140-440 RBC 3.96 M/ul Low 4.2-6.3 RDW 13.3 % 11.5-14.5 WBC 5.7 K/ul 4.1-10.9 Laboratory test 02/10/2010 N2N/CCD Import Comprehensive See Note 73 finding Metabolic Panel Ferritin 31.0 ng/mL 3-105 74 Serum Iron 36 g/dL 25-156 75 Laboratory test 02/10/2010 N2N/CCD Import Absolute 0.070 K/ul 0.0-0.3 finding Basophils Absolute Eosinophils 0.265 K/ul 0.0-0.5 Absolute Lymphocytes 1.07 K/ul 0.8-4.8 Absolute Monocytes 0.577 K/ul 0.1-1.0 Absolute Neutrophils 3.72 K/ul 2.05-7.63 Basophil 1.2 % 0-2 Eosinophil 4.7 % High 0-4 Hematocrit 34.9 % Low 37.0-51.0 Hemoglobin 12.1 GM/dl 12.0-16.0 Lymphocytes 18.8 % Low 20-44 MCH 30.5 pg 26.0-32.0 MCHC 34.6 g/dL 31.0-36.0 MCV 88 FL 80-97 Monocytes 10.1 % High 2-10.0 Neutrophils 65.2 % 50-70 Platelet Count 245 K/ul 140-440 RBC 3.96 M/ul Low 4.2-6.3 RDW 13.3 % 11.5-14.5 WBC 5.7 K/ul 4.1-10.9 Laboratory test 02/02/2010 N2N/CCD Import Free T4 1.82 ng/dL High 0.75- 1.54 76 finding TSH 0.017 uIU/ml Low 0.50-6.00 77 Vitamin B12 And Folate 09/24/2009 N2N/CCD Import Folic Acid 14.8 ng/mL 6.0-15.4 Vitamin B12 466 pg/mL 208-964 Laboratory test 09/24/2009 N2N/CCD Import Alternaria Tenuis <0.05 Class 0 finding kU/L Apergillis Fumigatus <0.05 Class 0 kU/L Guillermo,White <0.05 Class 0 kU/L Bahia Grass <0.05 Class 0 kU/L B[place] Grass <0.05 Class 0 kU/L Birch,White <0.05 Class 0 kU/L Bluegrass,[place] <0.05 Class 0 kU/L Cat Hair/Dander 0.16 ClassIIkU/L High Riley,[place] <0.05 Class 0 kU/L Cladosporium Herbarum <0.05 Class 0 kU/L Cockroach,[place] <0.05 Class 0 kU/L D Farinae Mite <0.05 Class 0 kU/L D Pteronyssinus <0.05 Class 0 kU/L Dog Epithelia 0.06 Class0/IkU/L High Elm,[place] (White) <0.05 Class 0 kU/L Erythropoietin (Epo), Serum 35.4 mIU/mL High 4.2-27.8 78 Ferritin 15.0 ng/mL 3-105 79 Hazelnut Tree <0.05 Class 0 kU/L Herminie,White <0.05 Class 0 kU/L Immunoglobulin E,Total 63 IU/mL 0-100 80 Maple ([place]) <0.05 Class 0 kU/L Mucor Racemosus <0.05 Class 0 kU/L Mugwort <0.05 Class 0 kU/L [place],White <0.05 Class 0 kU/L Nettle <0.05 Class 0 kU/L 81 [place],White <0.05 Class 0 kU/L Penicillium Not <0.05 Class 0 kU/L Pigweed,Rough <0.05 Class 0 kU/L Plantain,[place] <0.05 Class 0 kU/L Ragweed,Short/ <0.05 Class 0 kU/L Serum Iron 47 g/dL 25-156 82 Sheep [place] ([place] <0.05 Class 0 kU/L Stemphylium Bot <0.05 Class 0 kU/L Total Iron Binding Capacity 377 g/dL 245-419 83 Transferrin %Saturation 12 % 12-57 84 mRast Class (Text Only) See Note 85 Vitamin B12 And Folate 09/24/2009 N2N/CCD Import Folic Acid 14.8 ng/mL 6.0-15.4 86 Vitamin B12 466 pg/mL 208-964 Laboratory test 09/24/2009 N2N/CCD Import Absolute 0.072 K/ul 0.0-0.3 finding Basophils Absolute Eosinophils 0.272 K/ul 0.0-0.5 Absolute Lymphocytes 1.06 K/ul 0.8-4.8 Absolute Monocytes 0.467 K/ul 0.1-1.0 Absolute Neutrophils 2.72 K/ul 2.05-7.63 Basophil 1.6 % 0-2 Eosinophil 5.9 % High 0-4 Hematocrit 34.9 % Low 37.0-51.0 Hemoglobin 11.3 GM/dl Low 12.0-16.0 Lymphocytes 23.1 % 20-44 MCH 24.5 pg Low 26.0-32.0 MCHC 32.5 g/dL 31.0-36.0 MCV 75 FL Low 80-97 Monocytes 10.2 % High 2-10.0 Neutrophils 59.2 % 50-70 Platelet Count 226 K/ul 140-440 RBC 4.64 M/ul 4.2-6.3 RDW 22.0 % High 11.5-14.5 87 WBC 4.6 K/ul 4.1-10.9 Alternaria Tenuis <0.05 Class 0 kU/L Apergillis Fumigatus <0.05 Class 0 kU/L Guillermo,[place] <0.05 Class 0 kU/L [place] Grass <0.05 Class 0 kU/L [place] <0.05 Class 0 kU/L Birch,[place] <0.05 Class 0 kU/L [facility] <0.05 Class 0 kU/L Cat Hair/Dander 0.16 ClassIIkU/L [place] <0.05 Class 0 kU/L Cladosporium Herbarum <0.05 Class 0 kU/L Cockroach,[place] <0.05 Class 0 kU/L D Farinae Mite <0.05 Class 0 kU/L D Pteronyssinus <0.05 Class 0 kU/L Dog Epithelia 0.06 Class0/IkU/L [place]m,[place] (White) <0.05 Class 0 kU/L Erythropoietin (Epo), Serum 35.4 mIU/mL High 4.2-27.8 88 Ferritin 15.0 ng/mL 3-105 89 Hazelnut Tree <0.05 Class 0 kU/L Herminie,White <0.05 Class 0 kU/L Immunoglobulin E,Total 63 IU/mL 0-100 90 Maple ([place]) <0.05 Class 0 kU/L Mucor Racemosus <0.05 Class 0 kU/L Mugwort <0.05 Class 0 kU/L [place] <0.05 Class 0 kU/L Nettle <0.05 Class 0 kU/L 91 [place] <0.05 Class 0 kU/L Penicillium Not <0.05 Class 0 kU/L Pigweed,Rough <0.05 Class 0 kU/L Plantain,[place] <0.05 Class 0 kU/L Ragweed,Short/ <0.05 Class 0 kU/L Serum Iron 47 g/dL 25-156 92 [place] ([place] <0.05 Class 0 kU/L Stemphylium Bot <0.05 Class 0 kU/L Total Iron Binding Capacity 377 g/dL 245-419 93 Transferrin %Saturation 12 % 12-57 94 mRast Class (Text Only) See Note 95 Laboratory test 07/29/2009 N2N/CCD Import Vitamin 43.0 ng/mL 32.0-100.0 96 finding D,25-Hydroxy Laboratory test 07/29/2009 N2N/CCD Import Vitamin 43.0 ng/mL 32.0-100.0 97, 98 finding D,25-Hydroxy Lipid Panel 07/29/2009 N2N/CCD Import Chol/HDL Ratio 3.6 99 Cholesterol 162 mg/dL 50-199 HDL Cholesterol 45 mg/dL 29-86 LDL 87 mg/dL 20-129 Triglycerides 148 mg/dL 30-249 VLDL Cholesterol 30 mg/dL Laboratory test finding 07/29/2009 N2N/CCD Import A/G Ratio 1.4 1.0-2.2 Absolute Basophils 0.056 K/ul 0.0-0.3 Absolute Eosinophils 0.229 K/ul 0.0-0.5 Absolute Lymphocytes 0.876 K/ul 0.8-4.8 Absolute Monocytes 0.372 K/ul 0.1-1.0 Absolute Neutrophils 2.83 K/ul 2.05-7.63 Albumin 3.7 g/dL 3.5-5.0 Alkaline Phosphatase 70 U/L 30-126 Alt 32 U/L 9-52 Ast 38 U/L High 14-36 BUN 13 mg/dL 7-18 BUN/CR Ratio 16.9 Ratio 12-20 Basophil 1.3 % 0-2 Calcium 8.6 mg/dL Low 8.7-10.5 Carbon Dioxide 27 mmol/L 22-30 Chloride 102 mmol/L 98-107 Creatinine, Serum 0.8 mg/dL 0.7-1.2 Eosinophil 5.3 % High 0-4 Free T4 0.85 ng/dL 0.75-1.54 Globulin 2.6 g/dL Low 2.7-4.3 Glucose 91 mg/dL 65-105 Hematocrit 26.4 % Low 37.0-51.0 Hemoglobin 7.9 GM/dl Low 12.0-16.0 Lymphocytes 20.1 % 20-44 MCH 20.1 pg Low 26.0-32.0 MCHC 30.1 g/dL Low 31.0-36.0 MCV 67 FL Low 80-97 Monocytes 8.5 % 2-10.0 Neutrophils 64.8 % 50-70 Platelet Count 276 K/ul 140-440 Potassium 4.2 mmol/L 3.6-5.0 RBC 3.95 M/ul Low 4.2-6.3 RDW 16.1 % High 11.5-14.5 Sodium 137 mmol/L 137-145 TSH 0.238 uIU/ml Low 0.50-6.00 Total Bilirubin 0.2 mg/dL 0.2-1.3 Total Protein 6.3 g/dL 6.3-8.2 WBC 4.4 K/ul 4.1-10.9 1 Updated reference range on new analyzer 2 Updated reference range on new analyzer 3 Concerning GFR Guidelines: Normal function or mild renal disease, if clinically at risk: >/=60 mL/min Moderately decreased: 30-59 Severely decreased: 15-29 Renal failure: <15 Glomerular Filtration Rate (GFR) is estimated based on the MDRD equation, which assumes a steady state for creatinine as recommended by the National Kidney Disease Education Program in conjunction with the National Institutes of Health and the National Kidney Foundation. Clinical conditions in which it may be necessary to measure GFR by using clearance methods include extremes of age and body size, severe malnutrition or obesity, diseases of skeletal muscle, paraplegia or quadriplegia, vegetarian diet, rapidly changing kidney function, and calculation of the dose of potentially toxic drugs that are excreted by the kidneys. 4 Concerning GFR Guidelines for Americans: Normal function or mild renal disease, if clinically at risk: >/=60 mL/min Moderately decreased: 30-59 Severely decreased: 15-29 Renal failure: <15 5 Updated Reference Range 6 Per NCEP ATP III Guidelines: Results lower than 40 mg/dL are suggestive of increased risk for coronary artery disease. Results > or=to 60 mg/dL are considered a negative risk factor. 7 Per NCEP ATP III Guidelines: Normal Population <130 Patients with medical conditions: CHD/DM Optimal: <100 Borderline high: 130-159 High: 160-189 Very high: >189 8 Updated reference range on new analyzer 9 Updated reference range on new analyzer 10 Concerning GFR Guidelines: Normal function or mild renal disease, if clinically at risk: >/=60 mL/min Moderately decreased: 30-59 Severely decreased: 15-29 Renal failure: <15 Glomerular Filtration Rate (GFR) is estimated based on the MDRD equation, which assumes a steady state for creatinine as recommended by the National Kidney Disease Education Program in conjunction with the National Institutes of Health and the National Kidney Foundation. Clinical conditions in which it may be necessary to measure GFR by using clearance methods include extremes of age and body size, severe malnutrition or obesity, diseases of skeletal muscle, paraplegia or quadriplegia, vegetarian diet, rapidly changing kidney function, and calculation of the dose of potentially toxic drugs that are excreted by the kidneys. 11 Concerning GFR Guidelines for Americans: Normal function or mild renal disease, if clinically at risk: >/=60 mL/min Moderately decreased: 30-59 Severely decreased: 15-29 Renal failure: <15 12 Updated Reference Range 13 Per NCEP ATP III Guidelines: Results lower than 40 mg/dL are suggestive of increased risk for coronary artery disease. Results > or=to 60 mg/dL are considered a negative risk factor. 14 Per NCEP ATP III Guidelines: Normal Population <130 Patients with medical conditions: CHD/DM Optimal: <100 Borderline high: 130-159 High: 160-189 Very high: >189 15 Updated reference range on new analyzer 16 Updated reference range on new analyzer 17 Concerning GFR Guidelines for Americans: Normal function or mild renal disease, if clinically at risk: >/=60 mL/min Moderately decreased: 30-59 Severely decreased: 15-29 Renal failure: <15 18 Concerning GFR Guidelines: Normal function or mild renal disease, if clinically at risk: >/=60 mL/min Moderately decreased: 30-59 Severely decreased: 15-29 Renal failure: <15 Glomerular Filtration Rate (GFR) is estimated based on the MDRD equation, which assumes a steady state for creatinine as recommended by the National Kidney Disease Education Program in conjunction with the National Institutes of Health and the National Kidney Foundation. Clinical conditions in which it may be necessary to measure GFR by using clearance methods include extremes of age and body size, severe malnutrition or obesity, diseases of skeletal muscle, paraplegia or quadriplegia, vegetarian diet, rapidly changing kidney function, and calculation of the dose of potentially toxic drugs that are excreted by the kidneys. 19 Updated Reference Range 20 Updated reference range on new analyzer 21 Updated reference range on new analyzer 22 Concerning GFR Guidelines: Normal function or mild renal disease, if clinically at risk: >/=60 mL/min Moderately decreased: 30-59 Severely decreased: 15-29 Renal failure: <15 Glomerular Filtration Rate (GFR) is estimated based on the MDRD equation, which assumes a steady state for creatinine as recommended by the National Kidney Disease Education Program in conjunction with the National Institutes of Health and the National Kidney Foundation. Clinical conditions in which it may be necessary to measure GFR by using clearance methods include extremes of age and body size, severe malnutrition or obesity, diseases of skeletal muscle, paraplegia or quadriplegia, vegetarian diet, rapidly changing kidney function, and calculation of the dose of potentially toxic drugs that are excreted by the kidneys. 23 Concerning GFR Guidelines for Americans: Normal function or mild renal disease, if clinically at risk: >/=60 mL/min Moderately decreased: 30-59 Severely decreased: 15-29 Renal failure: <15 24 Updated reference range on new analyzer 25 Per NCEP ATP III Guidelines: Results lower than 40 mg/dL are suggestive of increased risk for coronary artery disease. Results > or=to 60 mg/dL are considered a negative risk factor. 26 Per NCEP ATP III Guidelines: Normal Population <130 Patients with medical conditions: CHD/DM Optimal: <100 Borderline high: 130-159 High: 160-189 Very high: >189 27 Updated reference range on new analyzer 28 Updated reference range on new analyzer 29 Concerning GFR Guidelines for Americans: Normal function or mild renal disease, if clinically at risk: >/=60 mL/min Moderately decreased: 30-59 Severely decreased: 15-29 Renal failure: <15 30 Concerning GFR Guidelines: Normal function or mild renal disease, if clinically at risk: >/=60 mL/min Moderately decreased: 30-59 Severely decreased: 15-29 Renal failure: <15 Glomerular Filtration Rate (GFR) is estimated based on the MDRD equation, which assumes a steady state for creatinine as recommended by the National Kidney Disease Education Program in conjunction with the National Institutes of Health and the National Kidney Foundation. Clinical conditions in which it may be necessary to measure GFR by using clearance methods include extremes of age and body size, severe malnutrition or obesity, diseases of skeletal muscle, paraplegia or quadriplegia, vegetarian diet, rapidly changing kidney function, and calculation of the dose of potentially toxic drugs that are excreted by the kidneys. 31 Updated reference range on new analyzer 32 Fastin hours 33 Concerning GFR Guidelines: Normal function or mild renal disease, if clinically at risk: >/=60 mL/min Moderately decreased: 30-59 Severely decreased: 15-29 Renal failure: <15 Glomerular Filtration Rate (GFR) is estimated based on the MDRD equation, which assumes a steady state for creatinine as recommended by the National Kidney Disease Education Program in conjunction with the National Institutes of Health and the National Kidney Foundation. Clinical conditions in which it may be necessary to measure GFR by using clearance methods include extremes of age and body size, severe malnutrition or obesity, diseases of skeletal muscle, paraplegia or quadriplegia, vegetarian diet, rapidly changing kidney function, and calculation of the dose of potentially toxic drugs that are excreted by the kidneys. 34 Concerning GFR Guidelines for Americans: Normal function or mild renal disease, if clinically at risk: >/=60 mL/min Moderately decreased: 30-59 Severely decreased: 15-29 Renal failure: <15 35 Per NCEP ATP III Guidelines: Results lower than 40 mg/dL are suggestive of increased risk for coronary artery disease. Results > or=to 60 mg/dL are considered a negative risk factor. 36 Per NCEP ATP III Guidelines: Normal Population <130 Patients with medical conditions: CHD/DM Optimal: <100 Borderline high: 130-159 High: 160-189 Very high: >189 37 Concerning GFR Guidelines for Americans: Normal function or mild renal disease, if clinically at risk: >/=60 mL/min Moderately decreased: 30-59 Severely decreased: 15-29 Renal failure: <15 38 Concerning GFR Guidelines: Normal function or mild renal disease, if clinically at risk: >/=60 mL/min Moderately decreased: 30-59 Severely decreased: 15-29 Renal failure: <15 Glomerular Filtration Rate (GFR) is estimated based on the MDRD equation, which assumes a steady state for creatinine as recommended by the National Kidney Disease Education Program in conjunction with the National Institutes of Health and the National Kidney Foundation. Clinical conditions in which it may be necessary to measure GFR by using clearance methods include extremes of age and body size, severe malnutrition or obesity, diseases of skeletal muscle, paraplegia or quadriplegia, vegetarian diet, rapidly changing kidney function, and calculation of the dose of potentially toxic drugs that are excreted by the kidneys. 39 Laboratory [place] [address] Surgical Pathology Report Specimen(s) Received A: Right wrist Clinical Diagnosis and History 5 mm punch biopsy right wrist lesion, brown lesion with darkening in the middle and irregular borders, about 5 x 5 mm Gross Description Specimen received in formalin labeled with the patient's name is a skin punch excision measuring 0.5 x 0.2 cm in depth with a corcoran, granular skin surface. The resection margin is inked black. The specimen is bisected and entirely submitted in one cassette. (The measurements of the specimen(s) may be less than those in vivo due to tissue shrinkage during histologic fixation and processing.) jlg eb/jbs Diagnosis DESIGNATED RIGHT WRIST: Pigmented seborrheic keratosis. Multiple levels examined. Technical component processed at [facility], Histopathology, [address], [place], [address]. Diagnosis and reporting performed at [facility], [facility] [place] [address]. Reported: 12/27/2014 10:46 Electronically Signed Out By Daniel Aleman M.D. paw ICD9 Codes A: L82.1 Unless otherwise specified, [facility] [address] [address] 40 Per NCEP ATP III Guidelines: Results lower than 40 mg/dL are suggestive of increased risk for coronary artery disease. Results > or=to 60 mg/dL are considered a negative risk factor. 41 Per NCEP ATP III Guidelines: Normal Population <130 Patients with medical conditions: CHD/DM Optimal: <100 Borderline high: 130-159 High: 160-189 Very high: >189 42 95 Results verified by repeat analysis 43 Concerning GFR Guidelines: Normal function or mild renal disease, if clinically at risk: >/=60 mL/min Moderately decreased: 30-59 Severely decreased: 15-29 Renal failure: <15 Glomerular Filtration Rate (GFR) is estimated based on the MDRD equation, which assumes a steady state for creatinine as recommended by the National Kidney Disease Education Program in conjunction with the National Institutes of Health and the National Kidney Foundation. Clinical conditions in which it may be necessary to measure GFR by using clearance methods include extremes of age and body size, severe malnutrition or obesity, diseases of skeletal muscle, paraplegia or quadriplegia, vegetarian diet, rapidly changing kidney function, and calculation of the dose of potentially toxic drugs that are excreted by the kidneys. 44 Concerning GFR Guidelines for Americans: Normal function or mild renal disease, if clinically at risk: >/=60 mL/min Moderately decreased: 30-59 Severely decreased: 15-29 Renal failure: <15 45 Reference Guidelines*: Desirable: ........... < 200 mg/dL Borderline High: ..... 200-239 mg/dL High: ................ >=240 mg/dL * The National Cholesterol Education Program (NCEP) 46 Reference Guidelines*: Normal: ............. < 150 mg/dL Borderline High: .... 150-199 mg/dL High: ............... 200-499 mg/dL Very High: .......... > 500 mg/dL * Source: National Cholesterol Education Program (NCEP) 47 Reference Guidelines*: Low HDL: ..... < 40 mg/dL Normal: ..... 40-60 mg/dL Desirable: ... > 60 mg/dL *The National Cholesterol Education Program(NCEP) 48 Reference Guidelines*: Optimal:........... <100 mg/dL Near Optimal....... 100-129 mg/dL Borderline High.... 130-159 mg/dL High............... 160-189 mg/dL Very High.......... >=190 mg/dL * Source: National Cholesterol Education Program (NCEP) 49 FASTING 50 MD=manual diff sent out 51 For -[place] patients multiply result by 1.180 52 FASTING in 6 months 53 MD=manual diff sent out 54 For -[place] patients multiply result by 1.180 55 FASTING in 6 months 56 OPERATION/PROCEDURE Colon. DIAGNOSIS: "SIGMOID COLON, POLYPECTOMY": HYPERPLASTIC POLYP. Tiburcio GROSS Received in fixative labeled, "SIGMOID COLON POLYP" is a 0.2 x 0.2 x 0.1 cm. corcoran, soft tissue. Submitted in toto in one block. Tiburcio MICROSCOPIC Sections show colonic mucosa lined by an increased number of goblet cells. The glands have a serrated, saw tooth appearance. The nuclei are bland, and basal. PRE OPERATIVE DIAGNOSIS H/ O polyp REVIEW CODE CODE: I ----- LISA Monroe MD 10/28/11 0004 ----- 57 QUERY: Is the Patient Fasting? N 58 QUERY: Is the Patient Fasting? N 59 Vitamin D deficiency has been defined by the [place] of [employer] and an Endocrine Society practice guideline as a level of serum 25-OH vitamin D less than 20 ng/mL (1,2). The Endocrine Society went on to further define vitamin D insufficiency as a level between 21 and 29 ng/mL (2). 1. IOM ([place] of [employer]). 2010. Dietary reference intakes for calcium and D. [place]: The National Academies Press. 2. Shelley MF, Angela NC, Nayana RIOS, et al. Evaluation, treatment, and prevention of vitamin D deficiency: an Endocrine Society clinical practice guideline. JCEM. 2010; 96(7):1911-30. Performed at: RN - [facility] [address] [id number] Turn Down Worker: Eli Davison MD, Phone: [phone] 60 Normal Range: Male: <4.98 Female: <4.45 61 Normal Range: Male: <4.98 Female: <4.45 62 FAX Dago Antony 63 Cytology Laboratory [address] [place] [address] [place] [address] CYTOLOGY REPORT Name: Idalia Greenberg : 1940 (Age: 70) Sex: F Location: [facility] Soc. Sec. #: [id number] Date Collected: 09/08/2010 Billing #: [id number] Date Received: 09/08/2010 Med. Rec. #: [id number] Requisition # [id number] Physician(s): WILLIAM BRAVO RPA Copy To: DAGO ANTONY MD Source of Specimen: ENDOCERVICAL /THIN PREP Clinical Information: Date of Last Menstrual Period: 1997 Menstrual History: Post menopausal Specimen Adequacy: SATISFACTORY FOR EVALUATION. ADEQUATE ENDOCERVICAL/TRANSFORMATION ZONE. General Categorization: NEGATIVE FOR INTRAEPITHELIAL LESION OR MALIGNANCY. Descriptive Evaluation: FUNGAL ORGANISMS MORPHOLOGICALLY CONSISTENT WITH NIKKI SP. marcello Electronic Signature ANALISA Sage (ASCP) Reported: 09/11/2010 Also seen by:ANALISA Sage (ASCP) Cytology Outreach [facility] ICD-9 Code(s) A: 112.1 64 Note: Persistent reduction for 3 months or more in an eGFR <60 mL/min/1.73 m2 defines CKD. Patients with eGFR values >/=60 mL/min/1.73 m2 may also have CKD if evidence of persistent proteinuria is present. The original MDRD equation for estimated GFR is not valid for patients less than 18 years of age. Additional information may be found at www.kdoqi.org. 65 FASTING FAX Dago Antony 66 FASTING FAX Dago Antony FAXED PER REQUEST - @ 4646 03/16/10,(LAB.LAS) QUERY: @EMR Pat ID: QUERY: @EMR Req #: 67 Performed at: RN - [facility] [address] [id number] Turn Down Worker: Edilberto Webster MD, Phone: [phone] 68 FASTING 69 Note: Persistent reduction for 3 months or more in an eGFR <60 mL/min/1.73 m2 defines CKD. Patients with eGFR values >/=60 mL/min/1.73 m2 may also have CKD if evidence of persistent proteinuria is present. The original MDRD equation for estimated GFR is not valid for patients less than 18 years of age. Additional information may be found at www.kdoqi.org. 70 STAYS AT [facility] 71 FASTING SCHEDULE FOR 2010 QUERY: @EMR Pat ID: QUERY: @EMR Req #: 72 FASTING SCHEDULE FOR 2010 QUERY: @EMR Pat ID: QUERY: @EMR Req #: QUERY: Is the Patient Fasting? U 73 STAYS AT [facility] 74 FASTING SCHEDULE FOR 2010 QUERY: @EMR Pat ID: QUERY: @EMR Req #: 75 FASTING SCHEDULE FOR EARLY 2010 QUERY: @EMR Pat ID: QUERY: @EMR Req #: QUERY: Is the Patient Fasting? U 76 FASTING FAX MARLEN MURRAY NP 77 CRITICAL TO BALJEET PARMAR ON 02/02/10 CONFIRMED 78 FAXED PER REQUEST - @ 0659 09/29/09,(LAB.LMT) FAX JEF ESPINOZA [phone] FAX JEF ESPINOZA FAXED PER REQUEST - @ 1249 09/24/09,( LAB.LAS) 80 FAXED PER REQUEST - @ 0614 09/29/09,(LAB.LMT) FAX JEF ESPINOZA [phone] Test(s) [id number]-ClQ [place]; 511857- I314-GuL Hermin[place], White; 002079-V974-OzP [place]; 540768-Z659-SfJ Pigweed, Rough; 852922- W018- IgE [place]ep [place]ock); 085991-Z056-AlL Nettle were developed and had performance characteristics determined by [facility]. These tests have not been cleared or approved by the U.S. Food and Drug Administration. The FDA has determined that such clearance or approval is not necessary. These tests are used for clinical purposes. These should not be regarded as investigational or for research. Performed at: [facility] [id number] Turn Down Worker: García Pinto MD, Phone: [phone] Performed at: [facility] [address] [id number] Turn Down Worker: Edilberto Webster MD, Phone: [phone] FAX JEF ESPINOZA FAXED PER REQUEST - @ 129909/24/09,( LAB.LAS) QUERY: IS THE PATIENT FASTING? N 83 FAX JEF ESPINOZA FAXED PER REQUEST - @ 1300 09/24/09,( LAB.LAS) QUERY: IS THE PATIENT FASTING? N 84 FAX JEF ESPINOZA FAXED PER REQUEST - @ 1300 09/24/09,( LAB.LAS) 85 Levels of Specific IgE Class Description of Class -- ----- <0.05 0 Negative 0.05 - 0.07 0/I Equivocal 0.08 - 0.15 I Increasing 0.16 - 0.50 II levels 0.51 - 2.50 III of 2.51 - 12.50 IV Specific IgE 12.51 - 62.50 V Antibody 62.51 - >100.00 86 FASTING SCHEDULE FOR MID AUGUST FAX JEF SMARTMAN [phone] CRITICAL VALUE TO BALJEET PARMAR ON 09/24/09 @ 11:18 CONFIRMED 88 FAXED PER REQUEST - @ 1332 09/29/09,(LAB.LMT) FAX JEF SMARTMAN [phone] [facility] PER REQUEST - @ 1245 09/24/09,( LAB.LAS) 90 FAXED PER REQUEST - @ 1641 09/29/09,(LAB.T) X JEF ODD [phone] Test(s) [id number]-[id number]-NlF [place]; 430586- X602-DbJ Hermin[place], White; 479854-O285-FsW [place]; 462305-Q576-BrI Pigweed, Rough; 354488- W018- IgE Sheep [place]ock); 111468-T824-QoR Nettle were developed and had performance characteristics determined by [employer]. These tests have not been cleared or approved by the U.S. Food and Drug Administration. The FDA has determined that such clearance or approval is not necessary. These tests are used for clinical purposes. These should not be regarded as investigational or for research. Performed at: [address] [id number] Turn Down Worker: García Pinto MD, Phone: [phone] Performed at: [address] [id number] Turn Down Worker: Edilberto Webster MD, Phone: [phone] FAX JEF ESPINOZA FAXED PER REQUEST - @ 1300 09/24/09,( LAB.LAS) QUERY: IS THE PATIENT FASTING? N 93 FAX JEF ESPINOZA FAXED PER REQUEST - @ 129909/24/09,( LAB.LAS) QUERY: IS THE PATIENT FASTING? N 94 FAX JEF ESPINOZA FAXED PER REQUEST - @ 129909/24/09,( LAB.LAS) 95 Levels of Specific IgE Class Description of Class -- ----- <0.05 0 Negative 0.05 - 0.07 0/I Equivocal 0.08 - 0.15 I Increasing 0.16 - 0.50 II levels 0.51 - 2.50 III of 2.51 - 12.50 IV Specific IgE 12.51 - 62.50 V Antibody 62.51 - >100.00 96 Recent studies consider the lower limit of 32.0 ng/mL to be a threshold for optimal health. Hernandez BW. J Nutr. 2004;135(2):317-22. Performed at: [address] [id number] Turn Down Worker: Edilberto Webster MD 97 FASTING fax cc to Vinita murray np 98 Recent studies consider the lower limit of 32.0 ng/mL to be a threshold for optimal health. Hernandez BW. J Nutr. 2004;135(2):317-22. Performed at: [address] [id number] Turn Down Worker: Edilberto Webster MD 99 Normal Range: Male: <4.98 Female: <4.45 Procedures Date Code Description Status 09/07/2018 61413 Measure Blood Oxygen Level Single Determination Completed 09/07/2018 20177 Electrocardiogram Complete Completed 07/26/2017 62749 Omt 3-4 Body Regions Completed 07/26/2017 88837 Inject/Drain Joint/Bursa Major W/Out Ultrasound Completed Guidance 06/22/2017 62424 Omt 3-4 Body Regions Completed 05/20/2017 07029 Omt 3-4 Body Regions Completed 04/04/2017 24206 Omt 3-4 Body Regions Completed 01/28/2017 21754 Omt 3-4 Body Regions Completed 01/18/2017 [id number] Colonoscopy Completed 01/12/2017 90938 Bone Density Study (Dexa) Axial Skeleton Completed (Hips,Pelvis,Spine) 01/12/2017 [id number] Mammogram Completed 01/12/2017 [id number] Bone Mineral Density Test Completed 12/22/2016 91301 Screening Hearing Test Completed 12/22/2016 50887 Brief Emotional/Behav Assessment W/ Scoring Doc Per Completed Standard Inst 11/16/2016 58632 Electrocardiogram Complete Completed 05/05/2016 94858 Electrocardiogram Complete Completed 03/05/2016 11694 Omt 3-4 Body Regions Completed 01/28/2016 70217 Omt 3-4 Body Regions Completed 12/30/2015 32450 Omt 3-4 Body Regions Completed 12/10/2015 [id number] Mammogram Completed 06/10/2015 99160 Omt 3-4 Body Regions Completed 12/25/2014 57985 Excise Benign Lesion <.6CM Trunk/Arm/Leg Completed 11/20/2014 [id number] Bone Mineral Density Test Completed 11/20/2014 86642 Old Bone Density Study (Dexa) Completed 11/20/2014 96275 Bone Density Study (Dexa) Axial Skeleton Completed (Hips,Pelvis,Spine) 11/20/2014 [id number] Mammogram Completed 11/04/2014 [id number] Bone Mineral Density Test Completed 09/23/2014 25741 X-Ray Knee Complete W/Obliques & Tunnel And/Or Completed Standing Views 08/20/2014 22396 Omt 3-4 Body Regions Completed 07/12/2014 55349 Omt 3-4 Body Regions Completed 05/31/2014 04689 Omt 3-4 Body Regions Completed 11/21/2013 61370 Mammography Unilateral Completed 10/06/2012 75929 Bone Density Study, Single Photon Absorptiometry Completed 10/06/2012 71564 Mammography Unilateral Completed 07/18/2012 24990 Omt 3-4 Body Regions Completed 07/14/2012 19749 Omt 3-4 Body Regions Completed 07/07/2012 71364 Omt 3-4 Body Regions Completed 07/05/2012 44057 Omt 1-2 Body Regions Completed 10/26/2011 14385523 Colonoscopy Completed 10/26/2011 99458 Colonoscopy Flexible Diagnostic Completed 10/07/2011 38911 ECHO Complete W/O Spectral Or Color Doppler Completed 10/05/2011 32539 ECHO Transthoracis 2D W Spectral Doppler Completed 09/29/2011 91689 Mammography Unilateral Completed 04/01/2011 89395 Electrocardiogram Complete Completed 03/29/2011 71406 I & D Abscess Complicated Completed 03/29/2011 74922 Excise Benign Lesion .6-1CM Completed Scalp/Neck/Hands/Feet/Genitalia 09/08/2010 45262 Mammography Unilateral Completed 09/08/2010 50399 Bone Density Study, Single Photon Absorptiometry Completed 08/27/2010 78781 Electrocardiogram Complete Completed 08/24/2010 74786 Screening Hearing Test Completed 08/24/2010 73258 Electrocardiogram Complete Completed 03/20/2010 22235 Measure Blood Oxygen Level Single Determination Completed 07/01/2009 62677 Electrocardiogram Complete Completed 03/31/2009 52865216 Mammogram Completed Encounters Type Date Location Provider Dx Diagnosis Office Visit 04/12/2018 [facility] Sriram Preez DO Z00.00 Encntr for general 2:45p adult medical exam w/o abnormal findings E03.9 Hypothyroidism, unspecified D50.9 Iron deficiency anemia, unspecified E78.2 Mixed hyperlipidemia K21.9 Gastro-esophageal reflux disease without esophagitis M17.0 Bilateral primary osteoarthritis of knee J45.30 Mild persistent asthma, uncomplicated I87.2 Venous insufficiency (chronic) (peripheral) R26.81 Unsteadiness on feet R20.9 Unspecified disturbances of skin sensation R60.0 Localized edema J04.0 Acute laryngitis L03.116 Cellulitis of LEFT lower limb Z23 Encounter for immunization M54.2 Cervicalgia Z12.31 Encntr screen mammogram for malignant neoplasm of breast E66.9 Obesity, unspecified Z68.32 Body mass index (BMI) 32.0-32.9, adult Office Visit 09/21/2017 1:45p [facility] Sriram Perez DO E03.9 Hypothyroidism , unspecified D50.9 Iron deficiency anemia, unspecified E78.2 Mixed hyperlipidemia K21.9 Gastro-esophageal reflux disease without esophagitis M17.0 Bilateral primary osteoarthritis of knee J45.30 Mild persistent asthma, uncomplicated I87.2 Venous insufficiency (chronic) (peripheral) R26.81 Unsteadiness on feet R20.9 Unspecified disturbances of skin sensation R60.0 Localized edema J04.0 Acute laryngitis L03.116 Cellulitis of LEFT lower limb Z68.33 Body mass index (BMI) 33.0-33.9, adult Office Visit 07/26/2017 11:45a [facility] Sriram Perez DO R53.83 Other fatigue M25.511 Pain in RIGHT shoulder M54.2 Cervicalgia M99.01 Segmental and somatic dysfunction of cervical region E78.2 Mixed hyperlipidemia D50.9 Iron deficiency anemia, unspecified E03.9 Hypothyroidism, unspecified Office Visit 06/22/2017 11:15a [facility] Sriram Perez DO R53.83 Other fatigue M54.2 Cervicalgia M99.01 Segmental and somatic dysfunction of cervical region M25.511 Pain in RIGHT shoulder Z68.32 Body mass index (BMI) 32.0-32.9, adult Office Visit 05/20/2017 11:15a [facility] Sriram Perez DO M54.2 Cervicalgia M99.01 Segmental and somatic dysfunction of cervical region Office Visit 04/04/2017 11:15a [facility] Sriram Perez DO M54.2 Cervicalgia M99.01 Segmental and somatic dysfunction of cervical region Office Visit 01/28/2017 11:15a [facility] Sriram Perez DO M54.2 Cervicalgia M99.01 Segmental and somatic dysfunction of cervical region J04.0 Acute laryngitis Office Visit 12/22/2016 3:30p [facility] Sriram Perez DO Z00.01 Encounter for general adult medical exam w abnormal findings E78.2 Mixed hyperlipidemia E03.9 Hypothyroidism, unspecified K21.9 Gastro-esophageal reflux disease without esophagitis M17.0 Bilateral primary osteoarthritis of knee J45.30 Mild persistent asthma, uncomplicated I87.2 Venous insufficiency (chronic) (peripheral) R26.81 Unsteadiness on feet R20.9 Unspecified disturbances of skin sensation D64.9 Anemia, unspecified R60.0 Localized edema J04.0 Acute laryngitis Z78.0 Asymptomatic menopausal state Z12.31 Encntr screen mammogram for malignant neoplasm of breast Office Visit 11/16/2016 11:00a [facility] Sriram Perez DO Z01.810 Encounter for preprocedural cardiovascular examination M17.0 Bilateral primary osteoarthritis of knee J45.30 Mild persistent asthma, uncomplicated K21.9 Gastro-esophageal reflux disease without esophagitis E78.2 Mixed hyperlipidemia I87.2 Venous insufficiency (chronic) (peripheral) E03.9 Hypothyroidism, unspecified R26.81 Unsteadiness on feet R20.9 Unspecified disturbances of skin sensation D64.9 Anemia, unspecified R60.0 Localized edema J04.0 Acute laryngitis R19.7 Diarrhea, unspecified Office Visit 10/20/2016 8:00a Sriram Brown DO R19.7 Diarrhea, unspecified Office Visit 08/17/2016 9:00a [facility] Sriram Perez DO J04.0 Acute laryngitis Office Visit 06/07/2016 10:15a [facility] Sriram Perez DO L03.116 Cellulitis of LEFT lower limb R60.0 Localized edema M17.0 Bilateral primary osteoarthritis of knee J45.30 Mild persistent asthma, uncomplicated K21.9 Gastro-esophageal reflux disease without esophagitis E78.2 Mixed hyperlipidemia I87.2 Venous insufficiency (chronic) (peripheral) E03.9 Hypothyroidism, unspecified R26.81 Unsteadiness on feet R20.9 Unspecified disturbances of skin sensation D64.9 Anemia, unspecified Office Visit 05/05/2016 10:30a [facility] Sriram Perez DO Z01.810 Encounter for preprocedural cardiovascular examination M17.0 Bilateral primary osteoarthritis of knee J45.30 Mild persistent asthma, uncomplicated K21.9 Gastro-esophageal reflux disease without esophagitis E78.2 Mixed hyperlipidemia I87.2 Venous insufficiency (chronic) (peripheral) E03.9 Hypothyroidism, unspecified R26.81 Unsteadiness on feet R20.9 Unspecified disturbances of skin sensation Office Visit 03/05/2016 11:15a [facility] Sriram Perez DO M54.2 Cervicalgia M99.01 Segmental and somatic dysfunction of cervical region J45.30 Mild persistent asthma, uncomplicated D48.5 Neoplasm of uncertain behavior of skin K21.9 Gastro-esophageal reflux disease without esophagitis Office Visit 01/28/2016 11:15a [facility] Sriram Perez DO M54.2 Cervicalgia M99.01 Segmental and somatic dysfunction of cervical region J45.30 Mild persistent asthma, uncomplicated Office Visit 12/30/2015 11:00a [facility] Sriram Perez DO M54.2 Cervicalgia M99.01 Segmental and somatic dysfunction of cervical region Office Visit 12/08/2015 9:45a [facility] Sriram Perez DO M54.2 Cervicalgia E78.2 Mixed hyperlipidemia I87.2 Venous insufficiency (chronic) (peripheral) R60.0 Localized edema J45.30 Mild persistent asthma, uncomplicated E03.9 Hypothyroidism, unspecified M25.569 Pain in unspecified knee R26.81 Unsteadiness on feet R20.9 Unspecified disturbances of skin sensation Office Visit 07/18/2015 1:30p [facility] Sriram Perez DO L03.116 Cellulitis of LEFT lower limb R60.0 Localized edema I87.2 Venous insufficiency (chronic) (peripheral) Office Visit 07/01/2015 11:00a [facility] Sriram Perez DO L03.116 Cellulitis of LEFT lower limb R60.0 Localized edema M54.2 Cervicalgia Office Visit 06/16/2015 11:00a [facility] Kate Marley PA L50.0 Allergic urticaria Office Visit 06/10/2015 11:00a [facility] Sriram Perez DO R60.0 Localized edema L03.116 Cellulitis of LEFT lower limb M54.2 Cervicalgia M99.01 Segmental and somatic dysfunction of cervical region Office Visit 05/30/2015 9:45a [facility] Sriram Perez DO R60.0 Localized edema J45.30 Mild persistent asthma, uncomplicated E78.2 Mixed hyperlipidemia E03.9 Hypothyroidism, unspecified M25.569 Pain in unspecified knee M54.2 Cervicalgia L03.116 Cellulitis of LEFT lower limb M25.511 Pain in RIGHT shoulder Office Visit 05/09/2015 10:15a [facility] Sriram Perez DO L03.116 Cellulitis of LEFT lower limb R60.0 Localized edema Office Visit 04/29/2015 9:45a [facility] Sriram Perez DO L03.116 Cellulitis of LEFT lower limb R60.0 Localized edema Office Visit 04/21/2015 10:15a [facility] Sriram Perez DO R60.0 Localized edema Office Visit 12/25/2014 11:15a [facility] Sriram Perez DO L82.1 Other seborrheic keratosis D48.5 Neoplasm of uncertain behavior of skin M25.561 Pain in RIGHT knee J45.30 Mild persistent asthma, uncomplicated L82.1 Other seborrheic keratosis Office Visit 11/28/2014 10:15a [facility] Sriram Perez DO D48.5 Neoplasm of uncertain behavior of skin E78.2 Mixed hyperlipidemia E03.9 Hypothyroidism, unspecified M25.569 Pain in unspecified knee M54.2 Cervicalgia J45.30 Mild persistent asthma, uncomplicated R60.9 Edema, unspecified Office Visit 09/23/2014 11:15a [facility] Sriram Perez DO 719.46 Pain Joint Lower Leg 723.1 Cervicalgia 780.4 Dizziness & Giddiness 381.81 Eustachian Tube Dysfunction Office Visit 08/20/2014 11:30a [facility] Sriram Perez DO 723.1 Cervicalgia 739.1 Lesion Nonallopathic Cervical Region Not Elsewhere Class 719.46 Pain Joint Lower Leg Office Visit 07/12/2014 11:15a [facility] Sriram Peerz DO 723.1 Cervicalgia 739.1 Lesion Nonallopathic Cervical Region Not Elsewhere Class Office Visit 06/12/2014 3:00p [facility] Kate Marley PA 729.81 Swelling Of Limb 691.8 Dermatitis Atopic & Related Conditions Other Office Visit 05/31/2014 11:15a [facility] Sriram Perez DO 723.1 Cervicalgia 739.1 Lesion Nonallopathic Cervical Region Not Elsewhere Class Office Visit 05/20/2014 2:45p [facility] Sriram Perez DO 723.1 Cervicalgia 729.5 Pain In Limb 724.1 Pain Thoracic Spine 493.10 Asthma Intrinsic Unspecified 272.2 Hyperlipidemia Mixed 782.3 Edema Office Visit 03/20/2014 8:45a [facility] Sriram Perez DO 729.5 Pain In Limb 723.1 Cervicalgia 493.10 Asthma Intrinsic Unspecified 782.3 Edema 787.91 Diarrhea 272.2 Hyperlipidemia Mixed Plan of Treatment Future Appointment(s):10/05/2018 9:30 am - Schedule, Laboratory at [facility]2018 10:15 am - Sriram Perez, DO at [facility]09/07/2018 - Melyssa Marie PAZ01.818 Encounter for other preprocedural examinationComments:Will be scheduled for open fixation of R patellar tendon rupture with Dr. Santacruz EKG stable compared to 2017Pt appears cardiovasc and cardiopulm stable for proposed surgery once RLE cellulitis has cleared - being followed by Dr. Santacruz for thisM66.261 Spontaneous rupture of extensor tendons, RIGHT lower legComments: Plan as qprmeN02.115 Cellulitis of RIGHT lower limbComments:Finish augmentin as prescribed by Dr. De Diosep leg elevatedCall with fevers, chills, worsening redness/swelling/timvyoL03.2 Mixed hyperlipidemiaComments:Well controlled on labs 03/2018Continue current blhuvinezQ88.9 Hypothyroidism, unspecifiedComments: Controlled on last labsContinue current rwlqcwvycK09.0 Localized edemaComments: ControlledContinue current ddnhyzshpU41.9 Obesity, eowbfuipnyfO28.33 Body mass index (BMI) 33.0-33.9, adult
--- OUTSIDE RECORDS SUMMARY | 2018-09-12 12:52 | XMS REPORT | Continuity of Care Document ---
:1940 External Reference #:[id number] Author Name Belkis Lopez Care Team Providers Name Role Phone Sriram Perez Primary Care Physician Unavailable Payers Date Identification Numbers Payment Provider Subscriber Policy Number: [id number] Medicare Alex E Yari PayID: [id number] [address] [place] [address] Expires: 2018 Policy Number: [id number] Medicare Alex E Simon PayID: [id number] [address] [place] [address] Policy Number: [id number] [employer] Alex E Simon Group Number: [id number] [address] PayID: [id number] [place] [address] Problems Active Problems Provider Date Localized, primary osteoarthritis Krys Santacruz M.D. Onset: 04/02/2016 Arthroplasty of knee Krys Santacruz M.D. Onset: 03/02/2017 Social History Type Date Description Comments Sex Unknown Lives With Spouse Occupation Retired ETOH Use Denies alcohol use Tobacco Use Start: Unknown Patient has never smoked Smoking Status Reviewed: 08/28/18 Patient has never smoked Exercise Type/Frequency Exercises sporadically Allergies, Adverse Reactions, Alerts Active Allergies Reaction Severity Comments Date Sulfa Antibiotics Urticaria 04/02/2016 Codeine 04/02/2016 Diflucan Urticaria 04/02/2016 Medications Active Medications SIG Qnty Indications Ordering Date Provider Meloxicam take 1 tab by 30tabs Krys Santacruz, 01/19/2017 15mg Tablets mouth with food M.D. once a day Amoxicillin 4 tablets 1 hour 4caps Krys Santacruz, 11/26/2016 500mg before dental work M.D. Capsules Fish Oil twice a day Krys Santacruz, 04/02/[address] Scruggs 8 Hour 1 in the morning, Unknown Arthritis Pain 1 at night 650mg Tablets ER Biotin 1 tab daily otc Unknown 5000mcg Capsules Acidophilus Extra 1 tab twice a day Unknown Strength by mouth every day Capsules Vitamin D take one capsule Unknown (Ergocalciferol) by mouth once weekly [id number] Capsules Calcium 600 + D 1 by mouth twice a Unknown day [id number] Tablets Proair HFA 2 puffs by mouth [...] hours as M.D. 12/21/2016 Tablets needed pain Cephalexin 1 capsule by 56caps Z96.652 Krys Santacruz, 06/02/2016 - 500mg mouth every 6 M.D. 06/29/2016 Capsules hours Keflex 1 tab by mouth 28caps Z96.652 Krys Santacruz, 05/25/2016 - 500mg four times a day M.D. 02/11/2017 Capsules Coumadin take 1-3 tabs by 90tabs Krys Santacruz, 05/07/2016 - 2mg mouth at 5 at M.D. 06/29/2016 Tablets night as directed Percocet 1-2 by mouth 90tabs Krys Santacruz, 05/07/2016 - 5-325mg every 4-6 hours M.D. 06/29/2016 Tablets as needed pain Colace 1 tab by mouth 90caps Krys Santacruz, 05/07/2016 - 100mg 2-3 times a day M.D. 06/29/2016 Capsules as needed Vital Signs Date Vital Result Comment 08/28/2018 2:18pm Height 63 inches 5'3" Weight [...] Date Facility Test Result H/L Range Note Inr/Protime 01/03/2017 [facility] Inr 2.16 High 0.89-1.[address] [place] [address] [phone] Inr/Protime 12/27/2016 [facility] Inr 2.07 High 0.89-1.[address] [place] [address] [phone] Inr/Protime 12/23/2016 [facility] Inr 1.72 High 0.89-1.[address] [place] [address] [phone] Protime W/ Inr 12/20/2016 [facility] Inr 1.23 High 0.89-1.[address] [place], [place] [address] [phone] Urine Culture And 11/26/2016 [facility] Urine SEE RESULT 5 , [address] [place] [place] [address] [phone] Comp Metabolic 11/26/2016 [facility] Sodium 135 mmol/L N 133- 145 Panel [address] [place] [address] [phone] Potassium 3.9 mmol/L N 3.5-5.0 Chloride 99 [...] 71.1 N >60 Egfr 91.5 N >60 7 Type & Screen 11/26/2016 [facility] Patient Blood Type O Negative N [address] [place] [address] [phone] Antibody Screen NEGATIVE N Urinalysis Profile 11/26/2016 [facility] Urine Color Straw N [address] [place] [address] [phone] Urine Appearance Clear N Urine Specific Franklin 1.004 Low 1.010-1.030 Urine pH 6.0 N [...] Urine Squamous Epithelial Cell Present Abnormal Absent Inr/Protime 11/26/2016 [facility] Inr 0.85 Low 0.89-1.11 [address] [place] [address] [phone] Laboratory test 11/26/2016 [facility] Partial 30.8 N 26.0- 36.[address] [place] [address] PTT [phone] CBC No Diff 11/26/2016 [facility] White Blood 6.5 10^3/uL N 3.5-10.[address] [place] [address] [phone] Red Blood Count 4.41 10^6/uL N 4.0-5.4 Hemoglobin 11.7 g/dL Low 12.0-16.0 Hematocrit 35 % N 35-47 Mean Corpuscular Volume 78 fL Low 80-97 Mean Corpuscular Hemoglobin 27 pg N 27-31 Mean Corpuscular HGB Conc 34 g/dL N 31-36 Red Cell Distribution Width 19 % High 10.5-15 Platelet Count 219 10^3/uL N 150-450 Mean Platelet Volume 9 um3 N 7.4-10.4 Inr/Protime 06/10/2016 [facility] Inr 1.84 High 0.89-1.[address] [place] [address] [phone] Inr/Protime 06/07/2016 [facility] Inr 2.11 High 0.89-1.[address] [place] [address] [phone] Inr/Protime 06/03/2016 [facility] Inr 1.24 High 0.89-1.[address] [place], [place] [id number] [phone] Urinalysis 05/07/2016 [facility] Urine Colorless N Profile [address] [place] [address] [phone] Urine Appearance Clear N Urine Specific Franklin 1.004 Low 1.010-1.030 Urine pH 6.0 N 5-9 Urine Urobilinogen Negative N Negative Urine Ketones Negative N Negative Urine Protein Negative N Negative Urine Leukocytes Negative N Negative Urine Blood Negative N Negative Urine Nitrite Negative N Negative Urine Bilirubin Negative N Negative Urine Glucose Negative N Negative CBC No Diff 05/07/2016 [facility] White Blood 6.5 10^3/uL N 3.5-10.[address] [place], [place] [address] [phone] Red Blood Count 4.51 10^6/uL N 4.0-5.4 Hemoglobin 13.0 g/dL N 12.0-16.0 Hematocrit 38 % N 35-47 Mean Corpuscular Volume 85 fL N 80-97 Mean Corpuscular Hemoglobin 29 pg N 27-31 Mean Corpuscular HGB Conc 34 g/dL N 31-36 Red Cell Distribution Width 15 % N 10.5-15 Platelet Count 196 10^3/uL N 150-450 Mean Platelet Volume 9 um3 N 7.4-10.4 Comp Metabolic Panel 05/07/2016 [facility] Sodium 135 mmol/L N 133-[address] [place] [address] [phone] Potassium 3.7 mmol/L N 3.5-5.0 Chloride 100 [...] 69.3 N >60 Egfr 89.1 N >60 11 Inr/Protime 05/07/2016 [facility] Inr 0.88 Low 0.89-1.[address] [place] [address] [phone] Laboratory test 05/07/2016 [facility] Partial 31.6 seconds N 26.0-36.[address] [place] [address] Time PTT [phone] Type & Screen 05/07/2016 [facility] Patient O Negative N [address] [place] [address] [phone] Antibody Screen NEGATIVE N Urine Culture And 05/07/2016 [facility] Urine Culture SEE RESULT [address] [place] [address] [phone] 1 PLEASE CALL STAT RESULTS TO DR THOMPSON AT [id number] 2 CALL RESULTS TO [id number] 3 CALL STAT RESULT TO 2727000 4 PLEASE CALL STAT RESULTS TO [id number] 5 PAIN IN RIGHT KNEE, EFFUSION, RIGHT KNEE, UNILATER 6 SEE RESULT BELOW Name: ALEX GREENBERG : [address]: Krys Santacruz MD Acct: [id number] Unit: [id number] AGE: 76 Location: [facility] Re11/26/16 SEX: F Status: REG REF SPEC: [id number] YAHAIRA: 11/26/[address] [facility] [address]: Krys Santacruz MD REQ: [id number] RECD: 11/26/16 STATUS: COMP _ SOURCE: URINE SPDESC: ORDERED: Urine Culture QUERIES: Urine Source: Clean Catch Procedure Result Reported Site Urine Culture Final 11/27/16- 1350 ML No Growth (<1,000 CFU/mL) * ML - MAIN LAB ([facility]) . END OF REPORT * ML=Testing performed at Main Lab DEPARTMENT OF PATHOLOGY, [address] [place] [address] Obey Morales M.D. Director [facility] # [id number] 7 Because ethnic data is not always readily [...] 15-29 5 Kidney failure <15 (or dialysis) 8 PLEASE CALL STAT RESULTS [phone] PLEASE FAX STAT RESULTS [phone] 9 PLEASE CALL STAT RESULTS TO [phone] PLEASE CALL STAT RESULTS [phone] PLEASE FAX STAT RESULTS [phone] 11 Because ethnic data is not always readily [...] 15-29 5 Kidney failure <15 (or dialysis) 12 --- 05/07/16 1254 --- Blood Type previously reported as: AP 13 SEE RESULT BELOW Name: ALEX GREENBERG : [address]: Krys Santacruz MD Acct: [id number] Unit: [id number] AGE: 75 Location: [facility] Re05/07/16 SEX: F Status: REG REF SPEC: [id number] YAHAIRA: 05/07/16-[address] [facility] [address]: Krys Santacruz MD REQ: [id number] RECD: 05/07/16 STATUS: [facility]DA [facility] DR: Sriram Perez DO _ SOURCE: URINE SPDESC: ORDERED: Urine Culture QUERIES: Urine Source: Clean Catch Procedure Result Reported Site Urine Culture Final 05/08/16- 1203 ML No growth of clinically significant organisms * ML - MAIN LAB ([facility]) . END OF REPORT * ML=Testing performed at Main Lab DEPARTMENT OF PATHOLOGY, [address] [place] [address] Obey Morales M.D. Director [facility] # [id number] Procedures Date Code Description Status 12/09/2016 56629 TKR Total Knee Replacement Completed 12/09/2016 01860 TKR Total Knee Replacement Completed 05/18/2016 69188 TKR Total Knee Replacement Completed 05/18/2016 41742 TKR Total Knee Replacement Completed Encounters Type Date Location Provider Dx Diagnosis Office Visit 05/21/2016 [facility] Sonia Roche J45.909 Unspecified asthma, 10:43a [facility]oc,miguel angel Bañuelos [employer] uncomplicated Hospitalists Z96.652 Presence of left artificial knee joint E78.5 Hyperlipidemia, unspecified Office Visit 05/20/2016 [facility] J45.909 Unspecified 10:42a Assocmiguel angel NP asthma, Hospitalists uncomplicated Z96.652 Presence of left artificial knee joint E78.5 Hyperlipidemia, unspecified Office Visit 05/19/2016 [facility] E78.5 Hyperlipidemia, 10:42a Assoc,miguel angel Torres NP unspecified Hospitalists J45.909 Unspecified asthma, uncomplicated Z96.652 Presence of left artificial knee joint Office Visit 05/18/2016 [facility] Edvin E78.5 Hyperlipidemia, 10:41a Assoc,miguel angel Peralta, N.P. unspecified Hospitalists J45.909 Unspecified asthma, uncomplicated Z96.652 Presence of left artificial knee joint Office Visit 04/02/2016 2:[facility]p [facility] Krys Santacruz, M25.561 Pain in right Of C.M.A. M.D. knee M25.562 Pain in left knee M25.461 Effusion, right knee M25.462 Effusion, left knee M17.0 Bilateral primary osteoarthritis of knee Plan of Treatment 08/28/2018 - Brunilda Puente, PAZ96.651 Presence of right artificial knee jointFollow up:Follow up: CsplrrG16.561 Pain in right kneeNew Xrays:Knee 3 Views RT, Ordered: 08/28/18M66.261 Spontaneous rupture of extensor tendons, right lower leg
--- OUTSIDE RECORDS SUMMARY | 2018-09-12 12:52 | XMS REPORT | Continuity of Care Document ---
:1940 External Reference #:[id number] Author Name Melody Ochoa Care Team Providers Name Role Phone PerezSriramDO Primary Care Physician Unavailable Payers Date Identification Numbers Payment Provider Subscriber Policy Number: [id number] Medicare Alex E Regan PayID: [id number] [address] [place] [address] Expires: 2018 Policy Number: [id number] Medicare Alex E Regan PayID: [id number] [address] [place] [address] Policy Number: [id number] [employer] Alex E Regan Group Number: [id number] [address] PayID: [id number] [place] [address] Problems Active Problems Provider Date Localized, primary osteoarthritis Krys Santacruz M.D. Onset: 04/02/2016 Cellulitis of right lower limb Krys Santacruz M.D. Onset: 09/04/2018 Non-traumatic rupture of patellar tendon Krys Santacruz M.D. Onset: 09/04/2018 Arthroplasty of knee Krys Santacruz M.D. Onset: 03/02/2017 Social History Type Date Description Comments Sex Unknown Lives With Spouse Occupation Retired ETOH Use Denies alcohol use Tobacco Use Start: Unknown Patient has never smoked Smoking Status Reviewed: 09/04/18 Patient has never smoked Exercise Type/Frequency Exercises [...] capsule Unknown (Ergocalciferol) by mouth once weekly [id number] Capsules Calcium 600 + D 1 by mouth twice a Unknown day [id number] Tablets Proair HFA 2 puffs by mouth [...] needed Vital Signs Date Vital Result Comment 09/04/2018 10:58am Height 63 inches 5'3" Weight [...] Test Result H/L Range Note Xray 08/28/[address] [facility] Knee 3 Views <pending> [address] [place] [address] [phone] Inr/Protime 01/03/[address] [facility] Inr 2.16 High 0.89-1.[address] [place] [address] [phone] Inr/Protime 12/27/[address] [facility] Inr 2.07 High 0.89-1.[address] [place] [address] [phone] Inr/Protime 12/23/[address] [facility] Inr 1.72 High 0.89-1.[address] [place] [address] [phone] Protime W/ Inr 12/20/[address] [facility] Inr 1.23 High 0.89-1.[address] [place] [address] [phone] Type & Screen 11/26/[address] [facility] Patient Blood O Negative N [address] [place] [address] [phone] Antibody Screen NEGATIVE N Urinalysis Profile 11/26/[address] [facility] Urine Color Straw [address] [place] [address] [phone] Urine Appearance Clear N Urine Specific [place] 1.004 Low 1.010-1.030 Urine pH 6.0 N [...] Epithelial Cell Present Abnormal Absent Inr/Protime 11/26/[address] [facility] Inr 0.85 Low 0.89-1.[address] [place] [address] [phone] Laboratory test 11/26/[address] [facility] Partial 30.8 N 26.0- 36.[address] [place] [address] PTT [phone] CBC No Diff 11/26/[address] [facility] White Blood 6.5 10^3/uL N 3.5-10.[address] [place] [address] [phone] Red Blood Count 4.41 10^6/uL N 4.0-5.4 [...] um3 N 7.4-10.4 Comp Metabolic Panel 11/26/[address] [facility] Sodium 135 mmol/L N 133-[address] [place] [address] [phone] Potassium 3.9 mmol/L N 3.5-5.0 Chloride 99 [...] N >60 6 Urine Culture And 11/26/[address] [facility] Urine SEE RESULT [address] Culture BELOW [place], [place] [address] [phone] Inr/Protime 06/10/[address] [facility] Inr 1.84 High 0.[address] -1.1 [place] [address] 4 [phone] Inr/Protime 06/07/[address] [facility] Inr 2.11 High 0.[address] -1[address]1 [place] [address] 8 [phone] Inr/Protime 06/03/[address] [facility] Inr 1.24 High 0.[address] -1[address]1 [place] [address] 3 [phone] Urinalysis Profile 05/07/[address] [facility] Urine Color Colorless N [address] [place] [address] [phone] Urine Appearance Clear N Urine Specific [place] 1.004 Low 1.010-1.030 Urine pH 6.0 N 5-9 Urine Urobilinogen Negative N Negative Urine Ketones Negative N Negative Urine Protein Negative N Negative Urine Leukocytes Negative N Negative Urine Blood Negative N Negative Urine Nitrite Negative N Negative Urine Bilirubin Negative N Negative Urine Glucose Negative N Negative CBC No Diff 05/07/[address] [facility] White Blood 6.5 10^3/uL N 3.5-10.[address] [place] [address] [phone] Red Blood Count 4.51 10^6/uL N 4.0-5.4 [...] um3 N 7.4-10.4 Comp Metabolic Panel 05/07/[address] [facility] Sodium 135 mmol/L N 133-[address] [place] [address] [phone] Potassium 3.7 mmol/L N 3.5-5.0 Chloride 100 [...] Egfr 89.1 N >60 11 Inr/Protime 05/07/[address] [facility] Inr 0.88 Low 0.89-1.[address] [place] [address] [phone] Laboratory test 05/07/[address] [facility] Partial 31.6 seconds N 26.0-36.[address] [place] [address] Time PTT [phone] Type & Screen 05/07/[address] [facility] Patient O Negative N [address] [place] [place] [address] [phone] Antibody Screen NEGATIVE N Urine Culture And 05/07/[address] [facility] Urine Culture SEE RESULT [address] [place] [address] [phone] PLEASE CALL STAT RESULTS TO DR THOMPSON AT [phone] [id number] 2 CALL RESULTS TO [id number] 3 CALL STAT RESULT TO [phone] PLEASE CALL STAT RESULTS TO [phone] PAIN IN RIGHT KNEE, EFFUSION, RIGHT [...] [address]: Krys Santacruz MD Acct: [id number] Unit: [id number] AGE: 76 Location: [facility] Re11/26/16 SEX: F Status: REG REF SPEC: [id number] YAHAIRA: 11/26/[address]: Krys Santacruz MD REQ: [id number] RECD: 11/26/16 STATUS: COMP _ SOURCE: URINE SPDESC: ORDERED: Urine Culture QUERIES: Urine Source: Clean Catch Procedure Result Reported Site Urine Culture Final 11/27/16- 1350 ML No Growth (<1,000 CFU/mL) * ML - MAIN LAB ([facility]) . END OF REPORT * ML=Testing performed at Main Lab DEPARTMENT OF PATHOLOGY, [address] [place] [address] Obey Morales M.D. Director [facility] # [id number] PLEASE CALL STAT RESULTS [phone] PLEASE FAX STAT RESULTS [phone] PLEASE CALL STAT RESULTS TO [phone] PLEASE CALL STAT RESULTS [phone] PLEASE FAX STAT RESULTS [phone] Because ethnic data is not always [...] [address]: Krys Santacruz MD Acct: [id number] Unit: [id number] AGE: 75 Location: [facility] Re05/07/16 SEX: F Status: REG REF SPEC: [id number] YAHAIRA: 05/07/16-[address]: Krys Santacruz MD REQ: [id number] RECD: 05/07/16 STATUS: LINDA VILLA DR: Sriram Perez DO _ SOURCE: URINE SPDESC: ORDERED: Urine Culture QUERIES: Urine Source: Clean Catch Procedure Result Reported Site Urine Culture Final 05/08/16- 1203 ML No growth of clinically significant organisms * ML - MAIN LAB ([facility]) . END OF REPORT * ML=Testing performed at Main Lab DEPARTMENT OF PATHOLOGY, [address] [place] [address] Obey Morales M.D. Director [facility] # [id number] Procedures Date Code Description Status 12/09/2016 49434 TKR Total Knee Replacement Completed 12/09/2016 64224 TKR Total Knee Replacement Completed 05/18/2016 77361 TKR Total Knee Replacement Completed 05/18/2016 24962 TKR Total Knee Replacement Completed Encounters Type Date Location Provider Dx Diagnosis Office Visit 09/04/2018 [facility]opedic Krys Santacruz, Z96.651 Presence of right 10:30a [facility] artificial knee joint M25.561 Pain in right knee M66.261 Spontaneous rupture of extensor tendons, right lower leg M25.461 Effusion, right knee L03.115 Cellulitis of right lower limb Office 05/21/2016 [facility] Sonia Roche J45.909 Unspecified Visit 10:43a Assmiguel angel bowling NP asthma, Hospitalists uncomplicated Z96.652 Presence of left artificial knee joint E78.5 Hyperlipidemia, unspecified Office Visit 05/20/2016 [facility] Mabel J45.909 Unspecified 10:42a miguel angel Moreno NP asthma, Hospitalists uncomplicated Z96.652 Presence of left artificial knee joint E78.5 Hyperlipidemia, unspecified [facility]lipidemia, 10:42a miguel angel Moreno NP unspecified Hospitalists J45.909 Unspecified asthma, uncomplicated Z96.652 Presence of left artificial knee joint Office Visit 05/18/2016 [facility] Edvin E78.5 Hyperlipidemia, 10:41a Assmiguel angel bowlnig, N.P. unspecified Hospitalists J45.909 Unspecified asthma, uncomplicated Z96.652 Presence of left artificial knee joint Office Visit 04/02/2016 2:00p [facility] Krys Santacruz, M25.561 Pain in right Of C.M.A. M.D. knee M25.562 Pain in left knee M25.461 Effusion, right knee M25.462 Effusion, left knee M17.0 Bilateral primary osteoarthritis of knee Plan of Treatment 09/04/2018 - Krys Santacruz M.D.Z96.651 Presence of right artificial knee ltgfaQ97.561 Pain in right kneeM66.261 Spontaneous rupture of extensor tendons, right lower legM25.461 Effusion, right kneeL03.115 Cellulitis of right lower limbNew Medication:Augmentin 500-125 mg - 1 tablet by mouth twice a day x 14 daysFollow up:Follow up: 09/08
[2018-09-12] MEDS ORDERED: fentaNYL* 50 MCG/ML 2 ML VIAL (100 MCG VIAL) ONE (13:20)
[2018-09-12] MEDS ORDERED: Midazolam* 1 MG/ML 5 ML VIAL (5 MG) ONE (13:20)
[2018-09-12] MEDS ORDERED: KETAMINE HCL* 50 MG/ML 10 ML VIAL ONE (13:20)
[2018-09-12] MEDS ORDERED: Ondansetron ODT TAB* 4 MG ONE (13:31)
[2018-09-12] MEDS ORDERED: celeCOXIB CAP* 200 MG ONE (13:32)
[2018-09-12] MEDS ORDERED: Gabapentin CAP(*) 300 MG ONE (13:32)
[2018-09-12] MEDS ORDERED: Acetaminophen TAB* 325 MG ONE (13:32)
[2018-09-12] MEDS ORDERED: Buffered Lidocaine 1% SYRIN* 1 ML/SYRINGE INTRADERM ONE (13:32)
[2018-09-12] MEDS ORDERED: Famotidine IV* 10 MG/ML 2 ML (20 mg) ONE (13:32)
[2018-09-12] MEDS ORDERED: Dexamethasone TAB* 4 MG ONE (13:32)
[2018-09-12] MEDS ORDERED: ceFAZolin 2 GM in NS PREMIX(*) 2 GM/100 ML BAG IVPB ONE (13:33)
[2018-09-12] MEDS ORDERED: Bupivacaine 0.5% SDV PF* 30ML VIAL ONE (14:08)
[2018-09-12] MEDS ORDERED: ROPIVACAINE 5 MG/ML 30 ML BTL (0.5%) ONE (14:40)
[2018-09-12] MEDS ORDERED: HYDROmorphone INJ1* 1 MG/ML SYRINGE ONE (16:42)
[2018-09-12] MEDS ORDERED: traMADol TAB* 50 MG PO PRN (17:00)
[2018-09-12] MEDS ORDERED: traZODone TAB* 50 MG TAB PO PRN (17:00)
[2018-09-12] MEDS ORDERED: Magnesium Hydroxide LIQ* 30 ML UDC PO PRN (17:00)
[2018-09-12] MEDS ORDERED: Polyethylene Glycol 3350* 17 GM PACKET PO PRN (17:00)
[2018-09-12] MEDS ORDERED: oxyCODONE/Acetamin 5/325 MG* TAB PO PRN (17:00)
[2018-09-12] MEDS ORDERED: Temazepam CAP* 15 MG PO PRN (17:00)
[2018-09-12] MEDS ORDERED: Morphine INJ* 2 MG/ML 1 ML SYRINGE (TWO MG - NEW SYRINGE VERSION) IV PRN (17:00)
[2018-09-12] MEDS ORDERED: Lactated Ringers 1000 ML Bag* 1,000 ML IV SCH (17:00)
[2018-09-12] MEDS ORDERED: Bisacodyl SUPP* 10 MG SUPP PR PRN (17:00)
[2018-09-12] MEDS ORDERED: diPHENhydraMINE PO* 25 MG PO PRN (17:00)
[2018-09-12] MEDS ORDERED: EPHEDrine (Pressors)* 50 MG/ML VIAL ONE (17:00)
[2018-09-12] MEDS ORDERED: oxyCODONE TAB* 5 MG TAB PO PRN (17:00)
[2018-09-12] MEDS ORDERED: Phenylephrine 10 MG/ML VIAL* 1 ML VIAL ONE (17:00)
[2018-09-12] MEDS ORDERED: Propofol* 10 MG/ML 20 ML BTL ONE (17:00)
[2018-09-12] MEDS ORDERED: diPHENhydraMINE IV* 50 MG/ML 1 ml VIAL (BENADRYL) IV PRN (17:00)
[2018-09-12] MEDS ORDERED: Albuterol inh POWDER (NF) 1 PUFF MDI INH PRN (17:14)
[2018-09-12] MEDS ORDERED: Albuterol 2.5 MG/3 ML NEB.SOL* (0.083%) INH PRN (19:03)
--- NOTE | 2018-09-12 21:09 | CONS ---
CC: Dr. Mary Antoine; Dr. Perez; Dr. Krys Santacruz * CONSULTATION REPORT: DATE OF CONSULT: 09/12/18 MY ATTENDING WHILE IN THE HOSPITAL: Dr. Mary Antoine. PRIMARY CARE PROVIDER: Dr. Perez in [place]. CONSULTING PROVIDER: Dr. Krys Santacruz. REASON FOR CONSULT: Comanagement of comorbid medical conditions. HISTORY OF PRESENT ILLNESS: Ms. Greenberg is a 78-year-old female with past medical history significant for asthma and lower extremity edema, who presents today for an elective repair of right patellar tendon rupture that occurred on 08/27/18. The patient is examined in the postoperative area. The patient is feeling well. The patient has no pain in her knee. The patient does have sensation in her bilateral lower extremities. The patient denies fever, chills , chest pain, shortness of breath, nausea, vomiting, or dizziness. The patient , before she came in, was feeling well. The patient has no recent infection. No chest pain, no shortness of breath, no decreased exercise tolerance. The patient took her furosemide this morning. The patient took all of her other medications this morning. The patient had no recent sick contacts. The patient did take Relafen this morning as well as Tylenol. The patient underwent general endotracheal anesthesia and had minimal blood loss. PAST MEDICAL HISTORY: Asthma, osteoarthritis, Graves disease, edema, GERD. PAST SURGICAL HISTORY: Bilateral cataract extraction, bilateral carpal tunnel release, right total knee arthroplasty, left total knee arthroplasty. MEDICATIONS: 1. Fish oil 1400 mg p.o. twice daily. 2. Spiriva HandiHaler 18 mcg 1 inhalation daily. 3. Furosemide 40 mg p.o. in the morning and 20 mg in the evening. 4. Symbicort 80/4.5 two puffs daily. 5. Omeprazole 40 mg p.o. daily. 6. Relafen 500 mg p.o. twice daily as needed. 7. Lipitor 10 mg p.o. daily. 8. Gabapentin 100 mg p.o. nightly. 9. ProAir inhalation 2 puffs inhalation every 4 hours as needed. 10. Calcium and vitamin D 600/200 one tab p.o. twice a day. 11. Vitamin D 50,000 units p.o. weekly. 12. Acidophilus 1 tab p.o. daily. 13. Biotin 1000 mcg p.o. daily. 14. Tylenol 650 mg p.o. b.i.d. 15. Amoxicillin 2000 mg before any dental work. ALLERGIES: SULFA, CODEINE, DIFLUCAN. FAMILY HISTORY: The patient's father of pancreatic cancer. The patient's mother of some laryngeal cancer and also had asthma. 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 The patient denies smoking, alcohol, or illicit drug use. The patient is , and her surrogate decision maker will be her , Bruce Greenberg. REVIEW OF SYSTEMS: A 14-point review of systems was reviewed and negative except as above in the HPI. PHYSICAL EXAM: General: The patient is a 78-year-old female, who appears as her stated age and sitting comfortably in the bed, in no acute distress. Vital Signs: At the time of evaluation, temperature 97.0, pulse of 65, respiratory rate 13, oxygen saturation 98% on 2 L, blood pressure 133/67. HEENT: Head: Normocephalic, atraumatic. Sclerae anicteric. No conjunctival injection. Nasal mucosa moist. Oral mucosa moist. No pharyngeal erythema, discharge, or exudate. Neck: Supple, nontender. No lymphadenopathy. No carotid bruits auscultated. No JVD. Cardiac: Regular rate and rhythm. No clicks, murmurs, gallops, or rubs. Pulses are 2+ in the dorsalis pedis, posterior tibialis, and radial areas. 1+ bilateral lower extremity edema noted. Respiratory: Clear to auscultation bilaterally. No wheezes, rales or rhonchi. Good air exchange bilaterally. Abdomen: Soft, nontender, nondistended. Bowel sounds present and normoactive in all four quadrants. No hepatosplenomegaly. No abdominal bruits auscultated. No hepatojugular reflux. Genitourinary: No suprapubic or CVA tenderness. Skin: Clean, dry, and intact. Neuro: Cranial nerves II through XII intact. Alert and oriented x3. Psychiatric: Pleasant and cooperative. ASSESSMENT AND PLAN: Impression: The patient is a 78-year-old female with past medical history significant only for asthma, Graves disease, and lower extremity edema, who presents for a scheduled right patellar tendon repair and is doing well postoperatively. 1. Postoperative state. Management per Orthopedics. The patient should have PT/TO. The patient will be immobilized in a brace. The patient will have pain control regimen and fluids until she can tolerate fluids by mouth. Have her Collazo catheter removed as soon as possible. 2. Asthma. The patient will have her scheduled inhalers and nebulizers as needed while in the hospital. The patient is not in active exacerbation. 3. Gastroesophageal reflux disease. Continue the patient's omeprazole. 4. Graves disease, on no current treatment. The patient is not currently symptomatic from this. 5. Lower extremity edema. Continue the patient's Lasix. Monitor the patient' s blood pressure. Repeat BMP 1 time. 6. DVT prophylaxis: Eliquis per Orthopedics. 7. FEN: The patient will have her diet advanced as tolerated to a regular, unrestricted diet, and fluids until she can tolerate adequate oral intake. 8. Disposition: Per Orthopedics. TIME SPENT: Approximately 45 minutes were spent on this consultation, 30 of which were spent [id number] with the patient, obtaining history and physical, and discussing the treatment plan. This plan was discussed with my attending Dr. Mary Antoine, and she is in agreement. NED MARROQUIN [id number]/[facility] #: [id number] MTDD
--- NOTE | 2018-09-12 22:16 | OP ---
DATE OF SURGERY: 09/12/18 - ROOM #339 DATE OF : 44 ATTENDING SURGEON: Krys Santacruz MD INSURANCE AUDITOR: NED Johansen ANESTHESIOLOGIST: Dr. Helm. ANESTHESIA: General. PRE-OP DIAGNOSIS: Right patellar tendon rupture at the tibial tuberosity. POST-OP DIAGNOSIS: Right patellar tendon rupture at the tibial tuberosity. OPERATIVE PROCEDURE: Open repair of the right patellar tendon. TOURNIQUET TIME: 61 minutes. ESTIMATED BLOOD LOSS: 100 cc. COMPLICATIONS: None. BRIEF HISTORY/INDICATION: Ms. Greenberg is a 78-year-old female who had a fall on . She had immediate severe pain in the knee and was noted to have an avulsion of her tibial tubercle with rupture of the patellar tendon around her right total knee arthroplasty. She was seen in clinic and noted to have significant cellulitis as well. She was placed in knee immobilizer and placed on antibiotics. Once the patient's cellulitis was significantly cleared, she was optimized for surgery and scheduled for open patellar tendon repair. Informed consent was obtained from the patient. She understood the risks of surgery included but were not limited to bleeding, infection, damage to nearby structures, continued pain, need for further surgery, failure of the repair, knee stiffness, loss of motion, stroke, heart attack, blood clot, and . She wished to proceed. INTRAOPERATIVE FINDINGS: Intraoperatively, the patient was noted to have a large hematoma around the proximal tibia. She did have an avulsion fracture of the patellar tendon at the tibial tubercle. There was a small 1 cm diameter bony piece attached to the distal patella. Patellar tendon was largely intact. There was no loosening of the implants noted. DESCRIPTION OF PROCEDURE: Ms. Greenberg was identified in the pre-anesthesia unit. Her right lower extremity was marked as a correct operative site. Informed consent was signed and placed in the chart. The patient was taken to the operating room and placed under anesthesia without difficulty. A tourniquet was placed on the right thigh. Right lower extremity was prepped and draped in the usual sterile fashion. Preop time-out was made to correctly identify the patient's side and site. Appropriate perioperative antibiotics were given within 1 hour of incision. Tourniquet was inflated and total tourniquet time for this procedure was 61 minutes. The patient's prior total knee arthroplasty incision was used. This was opened up down to the extensor mechanism. Careful dissection medially and laterally were made. The patellar tendon rupture was immediately encountered. There was an enormous amount of hematoma around the proximal tibia and this was evacuated. The knee joint was copiously irrigated with sterile saline. The implants were evaluated and were shown to have no loosening. Patellar tendon rupture was at the distal portion of the tendon at the tibial tubercle. There was a small bony avulsion piece on the distal tendon. The 3.5 metal Silverio and Nephew double-loaded suture anchors were used. Two were placed medially and two were placed laterally. C-arm guidance was used for placement of the suture anchors. A free needle was used to thread the sutures using a Krackow stitch superior and inferior along the patellar tendon. These sutures were then left loose. Using C-arm guidance, a K-wire was placed anterior to posterior along the lateral portion of the tibia through the avulsed bony fragment. This fragment was reduced down to the tibial tubercle. Pre-drilling was performed. A 42 mm partially threaded, cannulated 4.0 screw was then placed over the guidewire. Reduction of the avulsed bony fragment was excellent on AP and lateral C-arm views. The knee was kept in full extension. Next, the sutures from the four suture anchors were carefully tied down. The repair was stressed slightly and noted to be extremely stable. The medial torn retinaculum was repaired using interrupted #1 Vicryls. The knee was copiously irrigated with sterile saline. Tourniquet was turned down at 61 minutes. The incision was closed in a layered fashion using 0 and 2-0 Vicryls. Skin was closed using running 3-0 nylon suture. Sterile Xeroform, 4x4s, and Webril were used to cover the incision. Ned wrap and cold pack were placed over this. Intended weightbearing will be weightbearing as tolerated with the knee in extension at all times. She should have 0 flexion of the knee at all times. She was taken to the PACU in stable condition. [id number]/[facility] #: [id number] TOBIAS
[2018-09-12] MEDS: Gabapentin CAP(*) 100 MG PO SCH (22:22)
[2018-09-12] MEDS: Mometasone/Formoter 100/5 MDI INH SCH (22:23)
[2018-09-12] MEDS: Docusate CAP* 100 MG PO SCH (22:23)
[2018-09-12] MEDS: Magnesium Hydroxide LIQ* 30 ML UDC PO SCH (22:26)
[2018-09-12] MEDS: Atorvastatin* 10 MG TAB PO SCH (22:30)
[2018-09-13] MEDS: ceFAZolin 1 GM ADVAN(*) 1 GM in NS 0.9% 50 ML* 50 ML IVPB SCH ×3 (00:21→16:00)
[2018-09-13] MEDS: Cyclobenzaprine TAB* 10 MG PO PRN ×3 (00:24→18:40)
[2018-09-13] MEDS: Levothyroxine TAB* 25 MCG TAB PO SCH (05:39)
[2018-09-13 06:58] LABS: Hematocrit 28 % (35-47); Hemoglobin 9.9 g/dL (12.0-16.0)
[2018-09-13 07:09] LABS: BUN/Creatinine Ratio 20.3 (8-20); Calcium 8.8 mg/dL (8.6-10.3); EGFR African American 119.9 (>60); EGFR Non-African American 99.1 (>60); Potassium 3.9 mmol/L (3.5-5.0)
[2018-09-13] MEDS: Tiotropium CAP.INH* CAP.INH/18 MCG (USE ORDER SET !) INH SCH (07:09)
[2018-09-13] MEDS: Mometasone/Formoter 100/5 MDI INH SCH ×2 (07:25→19:43)
[2018-09-13] MEDS ORDERED: Spiriva Inhaler DEVICE* 1 EACH DEVICE INH ONE (09:00)
[2018-09-13] MEDS: Docusate CAP* 100 MG PO SCH ×2 (09:21→21:27)
[2018-09-13] MEDS: Apixaban* 2.5 MG TAB PO SCH ×2 (09:21→21:27)
[2018-09-13] MEDS: Cholecalciferol TAB* 1000 UNITS PO SCH (09:21)
[2018-09-13] MEDS: Pantoprazole TAB * 40 MG TAB PO SCH (09:21)
[2018-09-13] MEDS: Furosemide TAB* 40 MG PO SCH (09:21)
[2018-09-13] MEDS: Calcium/Vitamin D TAB 250/125* TAB PO SCH (09:21)
[2018-09-13] MEDS: Lactobacillus Acidophilus* 1 TAB PO SCH (09:21)
[2018-09-13] MEDS: Magnesium Hydroxide LIQ* 30 ML UDC PO SCH ×2 (09:33→17:16)
--- NOTE | 2018-09-13 09:37 | PN ---
Progress Note - Progress Note Date of Service: 09/13/18 SOAP: Subjective: []Patient seen and examined at bedside. She feels well and desires DC home today , though she has not yet worked with PT. Denies chest pain, shortness of breath , dizziness, nausea. Objective: []General: NAD, appears well, RLE: Dressing CDI, immobilizer in place with leg in extension. MTP and ankle flexion/extension intact without pain. Lower leg is edematous, no visible erythema, no palpable cords of calf. Dp2+, sensation intact to light touch distally L calf supple and nontender Assessment: []POD 1 sp Right patellar tendon repair Plan: []WBAT in full extension in immobilizer Right knee is to be kept in extension at all times, no bending whatsoever. Vital Signs Temp 98.0 F 09/13/18 07:00 Pulse 66 09/13/18 07:00 Resp 16 09/13/18 07:57 BP 116/52 09/13/18 07:00 Pulse Ox 94 09/13/18 07:00 Intake & Output 09/12/18 09/13/18 09/13/18 18:59 06:59 18:59 Intake Total 1900 1983 200 Output Total 725 1999 Balance 1175 -17 200 Weight 182 lb Intake: IV Fluids 1900 1133 ABX - CEFAZOLIN 53 LR 1900 1080 Oral 850 200 Output: Collazo 725 2000 Other: # Bowel Movements 0 Laboratory Last Values Hgb 9.9 g/dL (12.0-16.0) L 09/13/18 06:30 Hct 28 % (35-47) L 09/13/18 06:30 Sodium 131 mmol/L (135-145) L 09/13/18 06:30 Potassium 3.9 mmol/L (3.5-5.0) 09/13/18 06:30 Chloride 100 mmol/L (101-111) L 09/13/18 06:30 Carbon Dioxide 25 mmol/L (22-32) 09/13/18 06:30 Anion Gap 6 mmol/L (2-11) 09/13/18 06:30 BUN 12 mg/dL (6-24) 09/13/18 06:30 Creatinine 0.59 mg/dL (0.51-0.95) 09/13/18 06:30 Est GFR ( Amer) 119.9 (>60) 09/13/18 06:30 Est GFR (Non-Af Amer) 99.1 (>60) 09/13/18 06:30 BUN/Creatinine Ratio 20.3 (8-20) H 09/13/18 06:30 Glucose 142 mg/dL (70-100) H 09/13/18 06:30 Calcium 8.8 mg/dL (8.6-10.3) 09/13/18 06:30
[2018-09-13] MEDS: Ferrous Sulfate TAB* 325 MG PO SCH (11:44)
[2018-09-13] MEDS: Acetaminophen TAB* 325 MG PO PRN ×2 (11:45→23:14)
[2018-09-13] MEDS ORDERED: Furosemide TAB* 20 MG PO SCH (17:00)
[2018-09-13] MEDS: Atorvastatin* 10 MG TAB PO SCH (17:16)
[2018-09-13] MEDS: Gabapentin CAP(*) 100 MG PO SCH (21:27)
[2018-09-14] MEDS: Levothyroxine TAB* 25 MCG TAB PO SCH (06:31)
[2018-09-14] MEDS: Acetaminophen TAB* 325 MG PO PRN (07:20)
[2018-09-14] MEDS: Tiotropium CAP.INH* CAP.INH/18 MCG (USE ORDER SET !) INH SCH (07:31)
[2018-09-14] MEDS: Mometasone/Formoter 100/5 MDI INH SCH (07:35)
[2018-09-14] MEDS: Docusate CAP* 100 MG PO SCH (08:49)
[2018-09-14] MEDS: Cholecalciferol TAB* 1000 UNITS PO SCH (08:49)
[2018-09-14] MEDS: Furosemide TAB* 40 MG PO SCH (08:49)
[2018-09-14] MEDS: Lactobacillus Acidophilus* 1 TAB PO SCH (08:49)
[2018-09-14] MEDS: Apixaban* 2.5 MG TAB PO SCH (08:49)
[2018-09-14] MEDS: Pantoprazole TAB * 40 MG TAB PO SCH (08:49)
[2018-09-14] MEDS: Calcium/Vitamin D TAB 250/125* TAB PO SCH (08:50)
[2018-09-14] MEDS: Cyclobenzaprine TAB* 10 MG PO PRN (08:56)
[2018-09-14] MEDS: Magnesium Hydroxide LIQ* 30 ML UDC PO SCH (08:59)
--- NOTE | 2018-09-14 10:38 | DS ---
Orthopedic Discharge Summary - Discharge Summary Date of Admission:09/12/18 Date of Discharge: 09/14/18 Date of Surgery: 09/12/18 Attending Orthopedic Provider: Dr Santacruz Pre-operative Diagnosis: right patellar tendon rupture Operative Procedure: Right patellar tendon repair Disposition of Patient: home Condition of Patient: stable History: ALEX LEDEZMA is a 78 year old F with a right patellar tendon rupture. Hospital Course: ALEX was admitted to [facility] on 09/12/18. Patient underwent a right patellar tendon repair without complication followed by a brief recovery in PACU and transfer to the Short Stay Surgical Unit in stable condition. Our hospitalist service, physical therapy and occupational therapy also participated in this patients care. Post-op day 1: patient was alert and in no acute distress. Dressing was clean, dry and intact. Operative extremity dorsiflexion and plantarflexion intact, sensation intact to light touch distally, DP2+. Post-op day two: dressing was changed, incision was clean , dry and intact. She was able to ambulate with PT WBAT with her leg in full extension. Patient was deemed to be medically and orthopedically stable for discharge. Physical therapy goals were met. Home Medications Medication Instructions Recorded Confirmed Type Albuterol inh POWDER (NF) [Proair 2 puff INH Q4H PRN 05/07/16 09/12/18 History Respiclick] Atorvastatin* [Lipitor 10 MG*] 5 mg PO QPM 05/07/16 09/12/18 History Biotin 10,000 mcg PO QAM 05/07/16 09/12/18 History Budesonide/Formote 80/4.5(NF) 2 puff INH BID #0 05/07/16 09/12/18 History [Symbicort 80/4.5 (NF)] Calcium Carbonate/Vitamin D3 2 tab PO QAM 05/07/16 09/12/18 History [Calcium 600-Vit D3 800 Tablet] Cholecalciferol (Vitamin D3) 5,000 unit PO QAM 05/07/16 09/12/18 History [Vitamin D3] Furosemide TAB* [Lasix TAB*] 40 mg PO QAM 05/07/16 09/12/18 History Gabapentin CAP(*) [Neurontin 100 200 mg PO BEDTIME 05/07/16 09/12/18 History mg CAP(*)] L.acidoph,Saliva/B.bif/S.therm 1 cap PO QAM 05/07/16 09/12/18 History [Acidophilus 175 mg Capsule] Nabumetone TAB* [Relafen TAB*] 500 mg PO 0800,1800 05/07/16 09/12/18 History Herndon-3 Fatty Acids (Nf) [Fish Oil 1,000 mg PO QAM 05/07/16 09/12/18 History (NF)] Omeprazole CAP (NF) [Prilosec CAP* 40 mg PO QAM 05/07/16 09/12/18 History 20 MG] Tiotropium CAP.INH* [Spiriva 2 puff INH QAM 05/07/16 09/12/18 History CAP.INH*] Acetaminophen [Acetaminophen 8 2 tab PO BID 09/11/18 09/12/18 History Hour] Amoxicillin 4 tab PO SEE INSTRUCTIONS 09/11/18 09/12/18 History Amoxicillin/Clavulanate TAB* 250 mg PO BID 09/11/18 09/12/18 History [Augmentin TAB 250*] Ferrous Sulfate 325 mg PO QAM 09/11/18 09/12/18 History Levothyroxine TAB* [Synthroid 25 25 mcg PO QAM 09/11/18 09/12/18 History MCG TAB*] Acetaminophen TAB* [Tylenol TAB*] 975 mg PO Q8H PRN tab 09/14/18 Rx Apixaban* [Eliquis*] 2.5 mg PO BID #60 tab 09/14/18 Rx Cyclobenzaprine TAB* [Flexeril 10 5 mg PO TID PRN #30 tab 09/14/18 Rx MG TAB*] Docusate CAP* [Colace Cap*] 100 mg PO BID PRN #90 cap 09/14/18 Rx oxyCODONE/Acetamin 5/325 MG* 2 tab PO Q4H PRN #70 tab MDD 10 09/14/18 Rx [Percocet 5/325 TAB*] Discharge Instructions following Orthopedic Surgery: Activity: * Weight Bearing as tolerated with immobilizer on and operative leg in full extension (completely straight) at all times * Continue physical therapy and occupational therapy exercises as shown * Continue home PT Wound care: * OK to shower on post-op day 3, no bathing, swimming, or submerging wound. * Use gentle soap, pat dry. Cover with gauze, MICAELA wrap or tape. * Visiting home nurse to do wound checks. Call Orthopedic office for: * Increased drainage * Redness * Increased pain * Fever Go to ER with shortness of breath or chest pain. Diet: * Regular diet * Increase fluids and fiber to prevent constipation. * Continue to use stool softeners, call office if no bowel motion within 48 hours. Medications See Home Medication List in your packet for medications that you should take after discharge. DVT Prophylaxis: Eliquis Dosin.5 mg, 1 tab every 12 hours x 30 days. This medication increases bleeding tendency Pain Control: Percocet Dosin/325 mg 1-2 tabs by mouth every 4-6 hours as needed for pain. Maximum of 10 tabs per day. Hold for sedation, wean off as soon as pain allows Please note that Percocet contains Tylenol (acetaminophen). Maximum daily dose of Tylenol is 4000 mg from all sources. cyclobenzaprine 5 mg take 1 tab every 8 hours as needed for muscle spasm, hold for sedation Antibiotics are required prior to any dental work. FOLLOW UP: Follow up with [Noam] Within 10-14 days, call for appointment Please call our office with any questions or concerns ([phone])
[2018-09-14] MEDS: Ferrous Sulfate TAB* 325 MG PO SCH (11:14)
[2018-09-14 12:19] VITALS: BP 119/61
== END 2018-09-14 13:20 | disposition home health service (06) | DRG 502 ==
LOC: AA 12:47 → SSU 20:03
PROVIDERS: ADMIT Orthopaedic Surgery Adult Reconstructive Orthopaedic Surgery; ATTEND Orthopaedic Surgery Adult Reconstructive Orthopaedic Surgery
PROC: 0LMQ0ZZ Reattachment of Right Knee Tendon, Open Approach (ICD-10-PCS; principal; 2018-09-12 15:00)
DX: S76.111A Strain of right quadriceps muscle, fascia and tendon, initial encounter (principal); W18.30XA Fall on same level, unspecified, initial encounter; Y92.009 Unspecified place in unspecified non-institutional (private) residence as the place of occurrence of the external cause; Z96.653 Presence of artificial knee joint, bilateral; I10 Essential (primary) hypertension; J45.909 Unspecified asthma, uncomplicated; M19.90 Unspecified osteoarthritis, unspecified site; E05.00 Thyrotoxicosis with diffuse goiter without thyrotoxic crisis or storm; R60.9 Edema, unspecified; K21.9 Gastro-esophageal reflux disease without esophagitis; Z79.1 Long term (current) use of non-steroidal anti-inflammatories (NSAID); Z79.899 Other long term (current) drug therapy; Z88.5 Allergy status to narcotic agent; Z88.2 Allergy status to sulfonamides; Z88.8 Allergy status to other drugs, medicaments and biological substances; Z82.49 Family history of ischemic heart disease and other diseases of the circulatory system; Z80.9 Family history of malignant neoplasm, unspecified
CPT/HCPCS: 36415; 76000; 80048; 84300; 85014; 85018; 94640; A9270-GY; C1713; G8978-GP-CJ; G8979-GP-CI; G8987-GO-CK; G8988-GO-CJ; J0690; J1170; J2250; J2704; J2795; J3010; J3490; J8540